=== PATIENT | female | born 2000 | race Hispanic/Latino ===

== ENCOUNTER 2024-10-08 10:35 | Emergency (ER) | payer OTHER ==
--- OUTSIDE RECORDS SUMMARY | 2024-10-08 10:49 | XMS REPORT | Continuity of Care Document ---
Author Name Unknown Address [address] [facility] Carlos. [address] th[address] Address 1200 [facility]. 1 [address] [place] [address] Care Team Providers Care Deck Supervisor Name Role Phone Krzysztof Victor Primary Care Physicia n MORGAN SNOW Attending Clinician Unavailable Morgan Snow MD Attending Clinician [phone] Pam Kulkarni Attending Clinician [phone] Elizabeth Booth MD Attending Clinician [phone] RAHUL THOMPSON Attending Clinician Unavailable Res-Colpo/Leep, [facility] Attending Clinician Un available Rahul Thompson DO Attending Clinician [phone] MARTHA FINNEY Attending Clinician Unavailable Martha Lau Attending Clinician [phone] Rebeca Levin CNM Attending Clinician [phone] REBECA LEVIN Attending Clinician UnavailRAHUL Mccarthy Attending Clinician Unavailable KRZYSZTOF AVITIA Attending Clinician Unavail able Zachary, [facility] Nurse Attending Clinician Unava ilKrzysztof Beasley Attending Clinician + Doctor Unassigned, [place] Attending Clinician U DAVID Boland Attending Clinician Unav ailable DAVID HILL Attending Clinician Unav costa Hill MD, David Byers Attending Clinician + Clara Whelan MD Attending Clinician [phone] Thony REBOLLEDO, Shannon Queen Attending Clinicia n SANJU, JALYN LAURA Attending Clinician Unavailable SANJU, JALYN CAM Attending Clinician Unavailable Ty DIAL, Marlee Attending Clinician [phone] Sanju REBOLLEDO, Jalyn Laura Attending Clinician [phone] Rebeca Levin CNM Attending Clinician [phone] Akinsidharmesh WHCNP, Krzysztof Lanza Attending Clinician + UNKNOWN, ATTENDING Attending Clinician Unavailab Omar Brewerwinter Attending Clinician Unavaila ble Unknown, Attending Attending Clinician Unavailab TANISHA Romo Attending Clinician Unavailable TANISHA SOARES Attending Clinician Unavailable TANISHA SOARES Attending Clinician Unavailable Lab, [facility] Attending Clinician Unavailable Pam Kulkarni Attending Clinician [phone] LUIS A BONILLA Attending Clinician Unavailable Res-Colpo/Leep, [facility] Attending Clinician Un available Luis A Bonilla MD Attending Clinician [phone] Kiah Whelan MD Attending Clinician [phone] ZOEY MALDONADO Attending Clinician Unavailable Gilma Scott LVN Attending Clinician [phone] Doctor Unassigned, [place] Attending Clinician U navailable BHAKTI GRISSOM Attending Clinician Unavailable Quique Staton PA-C Attending Clinician [phone] Bhakti Grissom DO Attending Clinician +[phone] SARAH CUADRA Attending Clinician Unavailab Sarah Osullivan Attending Clinician + [phone] VICK VALADEZ Attending Clinician Unavailable VICK VALADEZ Attending Clinician Unavailable [facility]ending [facility]ician Marlene vailable ROBERT ALEGRE Attending Clinician UnavailROBERT Early Attending Clinician UnavailRAHUL Valencia Attending Clinician Unavailable Rahul Downs PA-C Attending Clinician [phone] Teresa DATA ENTRY ANALYST, Christopher Attending Clinician [phone] PRIMITIVO MATOS Attending Clinician Unavailable Green DATA ENTRY ANALYST, Primitivo Attending Clinician [phone] Provider, [facility] Attending Clinician Unavailable CHRISTOPHER MOORE Attending Clinician Unavailalok Isaacs DATA ENTRY ANALYST, Lenin Attending Clinician [phone] EBLENIN OTOOLE Attending Clinician Unavailable SIRI MURILLO Attending Clinician Unavailable Chidi REBOLLEDO, Siri Attending Clinician [phone] Erik Staton DO Attending Clinician [phone] ANGUS SAMPSON Attending Clinician Unavailab slick Sampson DATA ENTRY ANALYST, Angus Ybarra Attending Clinician [phone] Jorge Michael MD Attending Clinician + [phone] [facility] Attending Clinician Unava ilable 3, [facility] Attending Clinician Unavaila judi Levine RN, Tiny Berry Attending Clinician Unavail able Mandy Martinez MD, Barbara Attending Clinician + Ru MCCLAIN, [place] Attending Clinician Unavailalok Bojorquez RN, Michelle Attending Clinician Marlene BASHIR Rodrigez Attending Clinician Unavailable MORGAN SNOW Admitting Clinician Unavailable TANISHA SOARES Admitting Clinician Unavailable BHAKTI GRISSOM Admitting Clinician Unavailable DAVID HILL Admitting Clinician Unav ailable Morgan Snow MD Admitting Clinician [phone] DAVID HILL Admitting Clinician Unav ailable David Hill MD Admitting Clinician + JALYN BILLS Admitting Clinician Unavailable Sanju REBOLLEDO, Jalyn Laura Admitting Clinician [phone] TANISHA SOARES Admitting Clinician Unavailable Bhakti Grissom DO Admitting Clinician [phone] SARAH CUADRA Admitting Clinician Unavailab Jorge Sauer MD Admitting Clinician [phone] BASHIR URIBE Admitting Clinician Unavailable Payers Payer Name Policy Type Policy Number Effective Date Expirati on Date Source [place] [employer] [id number] 2023 00:00:00 [employer] [id number] 2023 00:00:00 Problems Condition Name Condition Details Condition Category Status Onset Date Resolution Date Last Treatment Date Treating Clinician Comments Source Gestationa l hypertensi on without significan t proteinuri a, Gestationa l hypertensi on without significan t proteinuri a, Disease Active 2023-10 00:00: 00 [facility] 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 Needs LEEP postpartu m [facility] History of HSV History of HSV Disease Active 00:00: 00 Overview: Formattin g of this note might be different from the original. Last outbreak 2015 [facility] Morbid obesity with body mass index of 40.0-49.9 Morbid obesity with body mass index of 40.0-49.9 Disease Active 12-18 00:00: 00 [facility] Atypical squamous cells of undetermin ed significan ce (ASCUS) on Papanicola ou smear of cervix Atypical squamous cells of undetermin ed significan ce (ASCUS) on Papanicola ou smear of cervix Disease Active 01-26 00:00: 00 Overview: Formattin g of this note might be different from the original. Will need repeat pap in 1 year 01/2024 [facility] History of abnormal cervical Pap smear History of abnormal cervical Pap smear Disease Active 01-26 00:00: 00 Overview: Formattin g of this note might be different from the original. ASCUS02/2 06/2024 HGSIL03/2 03/2024 colpo CIN3, LEEP postpartu m [facility] 37 weeks gestation of 37 weeks gestation of Disease Resolve d 2023-10 0-08 00:00: 00 2024-08-22 00:00:00 2024-08-22 10:40:14 [facility] Chlamydia infection affecting in third trimester Chlamydia infection affecting in third trimester Disease Resolve d 2023-10 0-01 00:00: 00 2024-08-22 00:00:00 2024-08-22 10:43:37 [facility] Flu vaccine refused Flu vaccine refused Disease Resolve d 9-19 00:00: 00 2024-08-22 00:00:00 2024-08-22 10:41:35 [facility] Gestationa l hypertensi on, third trimester Gestationa l hypertensi on, third trimester Disease Resolve d 9-11 00:00: 00 2024-08-22 00:00:00 2024-08-22 10:43:27 [facility] Transamini tis Transamini tis Disease Resolve d 9-11 00:00: 00 2024-08-22 00:00:00 2024-08-22 10:43:25 [facility] History of pre-eclamp brian in prior , currently History of pre-eclamp brian in prior , currently Disease Resolve d 00:00: 00 2024-08-22 00:00:00 2024-08-22 10:42:46 Overview: Formattin g of this note might be different from the original. Total protein: 150 [facility] History of miscarriag e History of miscarriag e Disease Resolve d 2- 00:00: 00 2024-08-22 00:00:00 2024-08-22 10:40:28 [facility] (spontaneo us vaginal delivery) (spontaneo us vaginal delivery) Disease Resolve d 2019-10 0- 00:00: 00 2024-08-22 00:00:00 2024-08-22 10:41:43 [facility] Single live Single live Disease Resolve d 2019-10 0-30 00:00: 00 2024-08-22 00:00:00 2024-08-22 10:40:18 [facility] Maternal varicella, non-immune Maternal varicella, non-immune Disease Resolve d 2019- 3-19 00:00: 00 2024-08-22 00:00:00 2024-08-22 10:40:16 Overview: Formattin g of this note might be different from the original. Address in Postpartu m [facility] Abdominal cramping affecting Abdominal cramping affecting Disease Resolve d 9-02 00:00: 00 2024-07-13 00:00:00 2024-07-13 15:47:44 [facility] Back pain affecting Back pain affecting Disease Resolve d 7-31 00:00: 00 2024-07-13 00:00:00 2024-07-13 15:47:51 [facility] 20 weeks gestation of 20 weeks gestation of Disease Resolve d 6-12 00:00: 00 2024-05-11 00:00:00 2024-05-11 09:45:12 [facility] Status post laparoscop ic cholecyste ctomy Status post laparoscop ic cholecyste ctomy Disease Resolve d 2-29 00:00: 00 2024-01-20 00:00:00 2024-01-20 12:31:09 Overview: Formattin g of this note might be different from the original. O2/27/202 4 [facility] RUQ pain RUQ pain Disease Resolve d 0 2-24 00:00: 00 2023-12-23 00:00:00 2023-12-23 15:16:20 [facility] Menorrhagi a with regular cycle Menorrhagi a with regular cycle Disease Resolve d 2022- 2-02 00:00: 00 2023-12-23 00:00:00 2023-12-23 15:16:29 [facility] care and examinatio n of lactating mother care and examinatio n of lactating mother Disease Active 2021- 3-31 00:00: 00 2023-12-23 00:00:00 2023-12-23 15:16:22 [facility] Screen for STD (sexually transmitte d disease) Screen for STD (sexually transmitte d disease) Disease Resolve d 2019-10 2-10 00:00: 00 2023-12-23 00:00:00 2023-12-23 15:16:23 [facility] Obesity (BMI 30-39.9) Obesity (BMI 30-39.9) Disease Resolve d 9-27 00:00: 00 2023-12-23 00:00:00 2023-12-23 15:16:27 [facility] Chlamydia trachomati s infection of lower genitourin maxi sites Chlamydia trachomati s infection of lower genitourin maxi sites Disease Active 4-01 00:00: 00 2022-11-26 00:00:00 2022-11-26 19:46:47 [facility] Other general counseling and advice for contracept rigoberto management Other general counseling and advice for contracept rigoberto management Disease Resolve d 2-03 00:00: 00 2022-11-26 00:00:00 2022-11-26 19:46:37 [facility] Nexplanon removal Nexplanon removal Disease Resolve d 1-20 00:00: 00 2022-11-26 00:00:00 2022-11-26 19:46:28 [facility] Flu vaccine need Flu vaccine need Disease Resolve d 9-17 00:00: 00 2022-11-26 00:00:00 2022-11-26 19:46:51 [facility] Constipati on, unspecifie d constipati on type Constipati on, unspecifie d constipati on type Disease Resolve d 4-16 00:00: 00 2022-11-26 00:00:00 2022-11-26 19:46:48 [facility] BMI 37.0-37.9, adult BMI 37.0-37.9, adult Disease Resolve d 1-09 00:00: 00 2022-11-26 00:00:00 2022-11-26 19:46:42 [facility] Elevated BP without diagnosis of hypertensi on Elevated BP without diagnosis of hypertensi on Disease Resolve d 2019-0 1-09 00:00: 00 2022-11-26 00:00:00 2022-11-26 19:46:50 [facility] Herpes infection in Herpes infection in Disease Resolve d 2015-0 8-31 00:00: 00 2022-11-26 00:00:00 2022-11-26 19:46:54 [facility] care and examinatio n immediatel y after delivery care and examinatio n immediatel y after delivery Disease Resolve d 2019-10 1-19 00:00: 00 2020-11-27 00:00:00 2020-11-27 15:28:38 [facility] hypertensi on hypertensi on Disease Resolve d 2019-10 1-06 00:00: 00 2020-11-27 00:00:00 2020-11-27 15:28:40 [facility] Mild preeclamps ia Mild preeclamps ia Disease Resolve d 2019- 0-30 00:00: 00 2020-11-27 00:00:00 2020-11-27 15:28:26 [facility] Laceration , obstetrica l, first degree Laceration , obstetrica l, first degree Disease Resolve d 2019- 0-30 00:00: 00 2020-11-27 00:00:00 2020-11-27 15:28:24 [facility] Anemia, Anemia, Disease Active 2019-1 0-30 00:00: 00 2020-11-27 00:00:00 2020-11-27 15:28:16 [facility] 36 weeks gestation of 36 weeks gestation of Disease Resolve d 2019-1 0-26 00:00: 00 2020-11-27 00:00:00 2020-11-27 15:28:13 [facility] 32 weeks gestation of 32 weeks gestation of Disease Resolve d 2019-0 9-27 00:00: 00 2020-11-27 00:00:00 2020-11-27 15:28:13 [facility] Supervisio n of high risk in third trimester Supervisio n of high risk in third trimester Disease Resolve d 16 00:00: 00 2020-11-27 00:00:00 2020-11-27 15:28:48 [facility] Primigravi da in third trimester Primigravi da in third trimester Disease Resolve d 02-07 00:00: 00 2020-11-27 00:00:00 2020-11-27 15:28:43 [facility] Abnormal glucose tolerance test (GTT) during , antepartum Abnormal glucose tolerance test (GTT) during , antepartum Disease Resolve d 02-07 00:00: 00 2020-11-27 00:00:00 2020-11-27 15:28:15 [facility] Class 2 obesity due to excess calories with body mass index (BMI) of 37.0 to 37.9 in adult, unspecifie d whether serious comorbidit y present Class 2 obesity due to excess calories with body mass index (BMI) of 37.0 to 37.9 in adult, unspecifie d whether serious comorbidit y present Disease Resolve d 02-07 00:00: 00 2020-11-27 00:00:00 2020-11-27 15:28:30 [facility] 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) Disease Resolve d 9-22 00:00: 00 2020-11-27 00:00:00 2020-11-27 15:28:35 [facility] Nexplanon in place Nexplanon in place Disease Resolve d 9-27 00:00: 00 2020-01-10 00:00:00 2020-01-10 10:15:55 [facility] BV (bacterial vaginosis) BV (bacterial vaginosis) Disease Resolve d 8-31 00:00: 00 2016-09-09 00:00:00 2016-09-09 11:25:20 [facility] Allergies, Adverse Reactions, Alerts Allergy Name Allergy Type Status Severity Reaction(s) Onset Date Inactive Date Treating Clinician Comments Source NO KNOWN ALLERGIE S Drug Class Active [facility] Social History Social Habit Start Date Stop Date Quantity Comments Source ASSERTION 2023-11-30 00:00:00 [facility] Gender identity [facility] Alcoholic beverage intake 2024-09-19 00:00:00 2024-09-19 00:00:00 0 /d [facility] Alcohol intake 2024-02-17 00:00:00 2024-02-17 00:00:00 0 /d [facility] History of Social function 2023-12-23 00:00:00 2023-12-23 00:00:00 [facility] Exposure to SARS-CoV-2 (event) 2023-01-09 00:00:00 2023-01-19 13:52:00 Not sure [facility] Tobacco use and exposure 2023-01-19 00:00:00 2023-01-19 00:00:00 Smokeless tobacco non-user [facility] Tobacco Comment 2023-01-19 00:00:00 2023-01-19 00:00:00 Denies smoking exposure [facility] Sex assigned at 2001 00:00:00 2000 00:00:00 [facility] Smoking Status Start Date Stop Date Source Never smoked tobacco [facility] Medications Ordered Medication Name Filled Medication Name Start Date Stop Date Current Medication? Ordering Clinician Indication Dosage Frequency Signature (SIG) Comments Components Source HYDROmorpho ne (DILAUDID) injection 0.2 mg 2023-10 20:27: 23 10-05 23:37 :01 No .2mg 0.2 mg, Slow IV Push, Q5MIN PRN, 10 doses, Starting on Cece 12 at 1427, Until Cece 12 at 1737, Routine, Pain (scale 7-10), PACU, Is this medication approved by a Faculty level provider? 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 Restricted medication : KWABENA BETH [facility] FENTanyl (PF) (SUBLIMAZE) injection 25 mcg 2023-10 20:27: 23 10-05 23:37 :01 No 25ug 25 mcg, Slow IV Push, Q5MIN PRN, 4 doses, Starting on Cece 10/05/24 at 1427, Until Cece 10/05/24 at 1737, Routine, Pain Scale 4-6, PACU [facility] ondansetron (ZOFRAN (PF)) injection 4 mg 2023-10 20:27: 23 10-05 23:37 :01 No 4mg 4 mg, Slow IV Push, PRN, 1 dose, Starting on Cece 10/05/24 at 1427, Until Cece 10/05/24 at 1737, Administer over 2-5 Minutes, 2 mL, [facility] ferric subsulfate (MONSEL'S) paste 2023-10 20:04: 00 10-05 21:02 :40 No PRN, Starting on Cece 10/05/24 at 1404, Until Cece 10/05/24 at 1502, Routine, [facility] lidocaine-e pinephrine (XYLOCAINE WITH EPINEPHRINE ) 1 %-1:100,000 injection 2023-10 19:59: 00 10-05 21:02 :40 No PRN, Starting on Cece 10/05/24 at 1359, Until Cece 24 at 1502, Routine, Intra-op [facility] iodine strong (LUGOL'S) (LUGOL'S SOLUTION) 5 % solution 2023-10 19:22: 00 10-05 21:02 :40 No PRN, Starting on Cece 10/05/24 at 1322, Until Cece 1224 at 1502, Routine, Intra-op [facility] acetaminoph en 500 mg tablet 2023-10 00:00: 00 11-05 05:59 :00 Yes [id number] 1000mg Take 2 tablets by mouth every 8 (eight) hours for 30 days. [facility] ibuprofen 800 mg tablet 2023-10 2-12 00:00: 00 11-05 05:59 :00 Yes [id number] 800mg Take 1 tablet by mouth every 8 (eight) hours for 30 days. [facility] oxyCODONE 5 mg immediate release tablet 2023-10-12 00:00: 00 10-13 05:59 :00 Yes [id number] 5mg Take 1 tablet by mouth every 6 (six) hours as needed for Pain (scale 7-10) for up to 7 days. Indication s: acute pain [facility] docusate 100 mg capsule 2023-10 0-10 00:00: 00 10-05 00:00 :00 No [id number] 200mg Take 2 capsules by mouth once daily as needed for Constipati on. [facility] ibuprofen 800 mg tablet 2023-10 0-10 00:00: 00 10-05 00:00 :00 No [id number] 800mg Take 1 tablet by mouth every 8 (eight) hours as needed (pain). Take with food or milk. [facility] hcz529-[id number] fum-folic 27 mg iron- 1 mg folic tablet 2023-10 0-10 00:00: 00 10-05 00:00 :00 No [id number] 1{tbl} Take 1 tablet by mouth in the morning. [facility] valACYclovi r 500 mg tablet 2023-10 0-10 00:00: 00 10-05 00:00 :00 No [id number] 500mg Take 1 tablet by mouth in the morning and 1 tablet in the evening. [facility] ferrous sulfate 325 mg (65 mg iron) tablet 2023-10 0-10 00:00: 00 10-05 00:00 :00 No [id number] 325mg Take 1 tablet by mouth in the morning. [facility] varicella virus vaccine live (VARIVAX (PF)) injection 0.5 mL 2023-10 009 13:06: 31 Yes .5mL 0.5 mL, Subcutaneo us, ONCE-PRIOR TO DISCHARGE, 1 dose, Starting on Wed08/02/24 at 0806, Until Discontinu ed, Routine, Give vaccine prior to discharge [facility] ibuprofen (IBU) tablet 600 mg 2023-10 11:00: 00 Yes 600mg 600 mg, Oral, Q6H, First dose on Wed08/02/24 at 0600, Until Discontinu ed, Routine [facility] rho(D) immune globulin (RHOPHYLAC) injection 300 mcg 2023-10 10:46: 03 Yes 300ug [facility] acetaminoph en (TYLENOL) tablet 650 mg 2023-10 10:45: 59 Yes 650mg 650 mg, Oral, Q6HPRN, Starting on Wed08/02/24 at 0545, Until Discontinu ed, Routine, Pain (scale 1-3) [facility] diphenhydrA MINE (BENADRYL) tablet 25 mg 2023-10 10:45: 59 Yes 25mg [facility] ondansetron (ZOFRAN (PF)) injection 4 mg 2023-10 10:45: 59 Yes 4mg [facility] simethicone (GAS RELIEF (SIMETHICON E)) chewable tablet 160 mg 2023-10 10:45: 59 Yes 160mg [facility] docusate (COLACE) capsule 200 mg 2023-10 10:45: 59 Yes 200mg [facility] magnesium hydroxide (MILK OF MAGNESIA) 400 mg/5 mL suspension 30 mL 2023-10 10:45: 59 Yes 30mL [facility] benzocaine- menthol (DERMOPLAST ) 20-0.5 % topical spray 2023-10 10:45: 58 Yes [facility] fan999-hnbj fum-folic 27 mg iron- 1 mg folic tablet 2023-10 00:00: 00 08-03 00:00 :00 No [id number] 1{tbl} Take 1 tablet by mouth in the morning. [facility] docusate 100 mg capsule 2023-10 00:00: 00 08-03 00:00 :00 No [id number] 200mg Take 2 capsules by mouth once daily as needed for Constipati on. [facility] ferrous sulfate 325 mg (65 mg iron) tablet 2023-10 00:00: 00 08-03 00:00 :00 No [id number] 325mg Take 1 tablet by mouth in the morning. [facility] ibuprofen 800 mg tablet 2023-10 00:00: 00 08-03 00:00 :00 No [id number] 800mg Take 1 tablet by mouth every 8 (eight) hours as needed (pain). Take with food or milk. [facility] ibuprofen (IBU) tablet 600 mg 2023-10 23:57: 45 08-02 10:46 :02 No 600mg 600 mg, Oral, Q6HPRN, Starting on Wed08/01/24 at 1857, Until Wed08/02/24 at 0546, Routine, Pain (scale 1-3) [facility] lactated ringers IV infusion 500 mL 2023-10 18:15: 00 08-01 17:52 :56 No 500mL at 999 mL/hr, 500 mL, IV Infusion, ONCE, 1 dose, On Wed08/01/24 at 1315, Routine [facility] ropivacaine 0.2 % (NAROPIN (PF)) epidural infusion 2023-10 18:06: 00 08-02 03:30 :38 No Epidural, CONTINUOUS PRN, Starting on Wed08/01/24 at 1306, Until Wed08/01/24 at 2230, Routine, Intra-op [facility] lidocaine-e pinephrine (XYLOCAINE W/EPINEPHRI NE) 1.5 %-1:200,000 injection 2023-10 18:05: 00 08-02 03:30 :38 No Epidural, ONCE INTRA PROCEDURE, Starting on Wed08/01/24 at 1305, Until Wed08/01/24 at 2230, Routine, Intra-op [facility] sodium citrate-cit anabel acid (BICITRA) 500-334 mg/5 mL solution 30 mL 2023-10 17:18: 01 08-01 17:22 :00 No 30mL 30 mL, Oral, PRE-PROCED URE ONCE, 1 dose, Starting on Wed08/01/24 at 1218, Until Wed08/01/24 at 1222, Routine, Surgery/Pr ocedure [facility] caffeine tablet 200 mg 2023-10 16:45: 00 08-01 18:26 :00 No 200mg 200 mg, Oral, ONCE, 1 dose, On Wed08/01/24 at 1145, Routine [facility] acetaminoph en (TYLENOL) tablet 1,000 mg 2023-10 16:45: 00 08-01 16:41 :00 No 1000mg 1,000 mg, Oral, ONCE, 1 dose, On Wed08/01/24 at 1145, Routine [facility] oxytocin (PITOCIN) 30 units in NS 500 mL IV infusion 2023-10 15:20: 42 08-02 10:46 :02 No 2mU/min at 2-40 mL/hr, IV Infusion, TITRATE, Starting on Wed08/01/24 at 1020, Until Wed08/02/24 at 0546, ALTHEA [facility] D5W-LR IV infusion 1,000 mL 2023-10 14:16: 38 08-02 10:46 :02 No 1000mL at 1-125 mL/hr, IV Infusion, TITRATE, Starting on Wed08/01/24 at 0916, Until Wed08/02/24 at 0546, Routine [facility] azithromyci n (ZITHROMAX) 500 mg tablet 07-21 00:00: 00 07-22 04:59 :00 Yes [id number] 01 1000mg Take 2 tablets by mouth once now for 1 dose. [facility] valACYclovi r 500 mg tablet 07-20 00:00: 00 Yes [id number] 500mg Take 1 tablet by mouth in the morning and 1 tablet in the evening. [facility] acetaminoph en (TYLENOL) tablet 1,000 mg 06-26 22:15: 00 06-26 21:41 :00 No 1000mg 1,000 mg, Oral, ONCE, 1 dose, On Wed06/26/24 at 1715, Routine [facility] metroNIDAZO LE 500 mg tablet - 00:00: 00 05-23 04:59 :00 No [id number] 500mg Take 1 tablet by mouth in the morning and 1 tablet in the evening. Do all this for 7 days. [facility] PNV 67-iron ps-folate no.1-dha (VITAFOL ULTRA) 29 mg iron- 1 mg-200 mg Cap 02-16 00:00: 00 08-02 00:00 :00 No [id number] 1{capsu le} Take 1 capsule by mouth in the morning. [facility] aspirin 81 mg EC tablet 02-16 00:00: 00 08-02 00:00 :00 No [id number] 9100 81mg Take 1 tablet by mouth in the morning. [facility] Nitrofurant oin&Nit. Macrocryst (MACROBID) 100 mg capsule - 00:00: 00 01-19 00:00 :00 No [id number] 100mg Take 1 capsule by mouth in the morning and 1 capsule in the evening. [facility] PNV no.40-iron fum-fa cmb no.1 27-1 mg 2- 14:58: 44 Yes 1{tbl} Take 1 tablet by mouth in the morning. [facility] PNV no.40-iron fum-fa cmb no.1 27-1 mg - 12:03: 08 02-16 00:00 :00 No 1{tbl} Take 1 tablet by mouth in the morning. [facility] acetaminoph en 325 mg tablet 12-22 00:00: 00 08-02 00:00 :00 No 650mg Take 2 tablets by mouth every 6 (six) hours as needed for Pain (scale 4-6). [facility] traMADoL 50 mg tablet 12-22 00:00: 00 12-25 05:59 :00 No [id number] 50mg Take 1 tablet by mouth every 6 (six) hours as needed for Pain (scale 7-10) for up to 3 days. Indication s: acute pain [facility] FENTanyl PF (SUBLIMAZE (PF)) injection 25 mcg 12-21 19:00: 54 12-21 19:58 :07 No 25ug 25 mcg, Slow IV Push, Q5MIN PRN, 4 doses, Starting on Wed12/21/23 at 1300, Until Wed12/21/23 at 1358, Routine, Pain (scale 4-6), PACU [facility] acetaminoph en (TYLENOL) tablet 650 mg 12-21 18:45: 00 Yes 650mg 650 mg, Oral, Q6H, First dose on Wed12/21/23 at 1245, Until Discontinu ed, Routine [facility] ondansetron (ZOFRAN (PF)) injection 4 mg 12-21 18:35: 55 Yes 4mg 4 mg, Slow IV Push, Q6HPRN, Nausea and Vomiting (N/V), Starting on Wed12/21/23 at 1235
Do ses of ondansetro n 16 mg and above need to be administer ed via IV piggyback. For Dose >=24mg ECG monitoring is advisable.
[facility] traMADoL (ULTRAM) tablet 50 mg 12-21 18:35: 15 Yes 50mg 50 mg, Oral, Q6HPRN, Starting on Wed12/21/23 at 1235, Until Discontinu ed, Routine, Pain (scale 4-6), Pain (scale 7-10) [facility] bupivacaine (preserv free) (SENSORCAIN E MPF) 0.25 % (2.5 mg/mL) 30 mL, lidocaine-e pinephrine (XYLOCAINE W/EPINEPHRI NE) 1 %-1:200,000 30 mL 12-21 17:09: 00 12-21 19:11 :17 No PRN, Starting on Wed12/21/23 at 1109, Intra-op [facility] sodium chloride 0.9 % irrigation solution 12-21 17:06: 00 12-21 19:11 :17 No PRN, Starting on Wed12/21/23 at 1106, Until Wed12/21/23 at 1311, Intra-op [facility] lactated ringers IV infusion 1,000 mL 12-21 06:00: 00 12-21 18:34 :43 No 1000mL at 125 mL/hr, 1,000 mL, IV Infusion, CONTINUOUS , Starting on Wed12/21/23 at 0000, Until Wed12/21/23 at 1234, Routine [facility] ampicillin- sulbactam (UNASYN) 3 g in NaCl 0.9% (NS) 100 mL MINI-BAG 12-19 06:00: 00 12-21 18:34 :43 No 3g 3 g, IV Piggyback, Q6H ABX, 20 doses, First dose on 12/19/23 at 0000, Last dose on Cece 12/23/23 at 1800, Administer over 30 Minutes, 100 mL
Reas on for Anti-Infec tive: Empiric Therapy for Suspected Infection< br>Empiric Therapy Site: Abdominal< br>Duratio n of therapy: 5 days [facility] morpHINE (2 mg/mL) injection 2 mg 12-19 02:45: 00 12-19 02:10 :00 No 2mg 2 mg, Slow IV Push, ONCE, 1 dose, On 12/18/23 at 2045, Routine [facility] lactated ringers IV infusion 1,000 mL 12-18 22:00: 00 12-20 19:48 :18 No 1000mL at 125 mL/hr, 1,000 mL, IV Infusion, CONTINUOUS , Starting on Wed12/18/23 at 1600, Until 12/20/23 at 1348, Routine [facility] ampicillin- sulbactam (UNASYN) 3 g in NaCl 0.9% (NS) 100 mL MINI-BAG 12-18 21:30: 00 12-18 22:35 :00 No 3g 3 g, IV Piggyback, ONCE, 1 dose, On 12/18/23 at 1530, Administer over 30 Minutes, 100 mL
Reas on for Anti-Infec tive: Surgical Prophylaxi s
Surgi ana Prophylaxi s: Abdominal< br>Duratio n of therapy: within 24 hours of surgery [facility] acetaminoph en (OFIRMEV) IV piggyback 1,000 mg 12-18 21:15: 00 12-18 22:00 :00 No 1000mg 1,000 mg, IV Piggyback, at 400 mL/hr Administer over 15 Minutes, ONCE, 1 dose, On 12/18/23 at 1530, ALTHEA
Is the patient strict NPO and unable to tolerate oral medication s? Yes [facility] traMADoL (ULTRAM) tablet 50 mg 12-09 04:15: 00 12-09 03:24 :00 No 50mg 50 mg, Oral, ONCE, 1 dose, On Wed12/08/23 at 2215, Routine [facility] ondansetron (ZOFRAN (PF)) injection 4 mg 12-09 02:30: 00 12-09 03:24 :00 No 4mg 4 mg, Slow IV Push, ONCE, 1 dose, On Wed12/08/23 at 2030, ALTHEA [facility] iopamidol (ISOVUE 370-500 mL) injection 85 mL 12-09 01:45: 00 12-09 01:45 :00 No [id number] 85mL 85 mL, Intravenou s, ONCE, 1 dose, On Wed12/08/23 at 1945, Routine [facility] famotidine (PEPCID (PF)) injection 20 mg 12-09 00:30: 00 12-09 00:26 :00 No 20mg 20 mg, Slow IV Push, ONCE, 1 dose, On Wed12/08/23 at 1830, ALTHEA [facility] traMADoL 50 mg tablet 2-14 00:00: 00 12-14 05:59 :00 No [id number] 50mg Take 1 tablet by mouth every 6 (six) hours as needed for Pain (scale 7-10) for up to 5 days. Indication s: acute pain [facility] ondansetron 4 mg disintegrat ing tablet 214 00:00: 00 12-14 05:59 :00 No [id number] 4mg Take 1 tablet by mouth every 8 (eight) hours as needed for Nausea and Vomiting (N/V) for up to 5 days. [facility] cefTRIAXone (ROCEPHIN) 350 mg/mL in Lidocaine 1 % injection 500 mg - 00:00: 00 11-03 23:14 :00 No 500mg 500 mg, Intramuscu lar, ONCE NOW, 1 dose, On Wed11/03/23 at 1800, ALTHEA
Re ason for Anti-Infec tive: Empiric Therapy for Suspected Infection< br>Empiric Therapy Site: Pelvic
Duration of therapy: Once (ED) [facility] azithromyci n (ZITHROMAX) tablet 1,000 mg 11-03 23:15: 00 11-03 23:13 :00 No 1000mg 1,000 mg, Oral, ONCE, 1 dose, On Wed11/03/23 at 1715, ALTHEA
Re ason for Anti-Infec tive: Empiric Therapy for Suspected Infection< br>Empiric Therapy Site: Pelvic
Duration of therapy: Once (ED) [facility] fluconazole (DIFLUCAN) 150 mg tablet 05-14 00:00: 00 05-15 04:59 :00 No [id number] 150mg Take 1 tablet by mouth once now for 1 dose. [facility] doxycycline hyclate 100 mg capsule 04-29 00:00: 00 05-07 04:59 :00 No [id number] 100mg Take 1 capsule by mouth every 12 (twelve) hours for 7 days. [facility] metroNIDAZO LE 500 mg tablet 04-29 00:00: 05-07 04:59 :00 No [id number] 500mg Take 1 tablet by mouth in the morning and 1 tablet in the evening. Do all this for 7 days. [facility] medroxyPROG ESTERone (DEPO-PROVE RA) syringe 150 mg 4- 05:00: 00 12-22 17:42 :34 No [id number] 150mg [facility] metroNIDAZO LE 500 mg tablet 30 00:00: 00 04-29 00:00 :00 No [id number] 500mg Take 1 tablet by mouth in the morning and 1 tablet in the evening. [facility] doxycycline hyclate 100 mg tablet 01-21 00:00: 00 01-29 04:59 :00 No [id number] 100mg Take 1 tablet by mouth in the morning and 1 tablet in the evening. Do all this for 7 days. [facility] medroxyPROG ESTERone (DEPO-PROVE RA) syringe 150 mg 2- 17:00: 00 11-26 16:29 :00 No [id number] 150mg [facility] bromphenira mine-pseudo ephedrine-D M 2-30-10 mg/5 mL syrup 05-13 00:00: 00 05-21 04:59 :00 No [id number] 10mL Take 10 mL by mouth 4 (four) times daily as needed for Congestion /Allergies for up to 7 days. [facility] polymyxin B sulf-trimet hoprim 10,000 unit- 1 mg/mL ophthalmic drops 04-28 00:00: 00 05-06 04:59 :00 No [id number] 1[drp] Place 1 Drop in both eyes every 6 (six) hours for 7 days. [facility] fluticasone propionate 50 mcg/actuati on nasal spray 6 00:00: 00 04-28 00:00 :00 No [id number] 2{spray } Use 2 Sprays in each nostril daily. [facility] fexofenadin e-pseudoeph edrine (JIMENA-D) 60-120 mg per tablet 04-20 00:00: 00 04-28 00:00 :00 No [id number] 1{tbl} Take 1 tablet by mouth 2 (two) times daily. [facility] amoxicillin 875 mg tablet 04-20 00:00: 00 05-01 04:59 :00 No [id number] 875mg Take 1 tablet by mouth 2 (two) times daily for 10 days. [facility] No known medications 04-05 11:41: 36 No [facility] No known medications 02-19 14:50: 17 No [facility] vit 33-iron-fol ic-dha (SELECT-OB + DHA) 29 mg iron-1 mg -250 mg combo pack 01-24 00:00: 00 07-21 00:00 :00 No [id number] 1{packe t} Take 1 Packet by mouth daily. [facility] Immunizations Ordered Immunization Name Filled Immunization Name Date Status Comments Source Flu Injectable [facility]CK Pres-Free (FLUCELVAX) 2024-09-12 00:00:00 Completed [facility] TDAP 2024-06-01 00:00:00 Completed [facility] TDAP 2024-06-01 00:00:00 Completed [facility] TDAP 2024-06-01 00:00:00 Completed [facility] TDAP 2024-06-01 00:00:00 Completed [facility] TDAP 2024-06-01 00:00:00 Completed [facility] Influenza Virus Vaccine Quad IM, Preserv and ABX Free 6 MO-64 YRS 2023-01-20 00:00:00 Completed [facility] Influenza Virus Vaccine Quad IM, Preserv and ABX Free 6 MO-64 YRS 2023-01-20 00:00:00 Completed [facility] Influenza Virus Vaccine Quad IM, Preserv and ABX Free 6 MO-64 YRS 2023-01-20 00:00:00 Completed [facility] Influenza Virus Vaccine Quad IM, Preserv and ABX Free 6 MO-64 YRS 2023-01-20 00:00:00 Completed [facility] Influenza Virus Vaccine Quad IM, Preserv and ABX Free 6 MO-64 YRS 2023-01-20 00:00:00 Completed [facility] Influenza Virus Vaccine Quad IM, Preserv and ABX Free 6 MO-64 YRS 2023-01-20 00:00:00 Completed [facility] Influenza Virus Vaccine Quad IM, Preserv and ABX Free 6 MO-64 YRS 2023-01-20 00:00:00 Completed [facility] Influenza Virus Vaccine Quad IM, Preserv and ABX Free 6 MO-64 YRS 2023-01-20 00:00:00 Completed [facility] Influenza Virus Vaccine Quad IM, Preserv and ABX Free 6 MO-64 YRS 2023-01-20 00:00:00 Completed [facility] Influenza Virus Vaccine Quad IM, Preserv and ABX Free 6 MO-64 YRS 2023-01-20 00:00:00 Completed [facility] Influenza Virus Vaccine Quad IM, Preserv and ABX Free 6 MO-64 YRS (FLUCELVAX) 2023-01-20 00:00:00 Completed [facility] Influenza Virus Vaccine Quad IM, Preserv and ABX Free 6 MO-64 YRS (FLUCELVAX) 2023-01-20 00:00:00 Completed [facility] Influenza Virus Vaccine Quad IM, Preserv and ABX Free 6 MO-64 YRS (FLUCELVAX) 2023-01-20 00:00:00 Completed [facility] Influenza Virus Vaccine Quad IM, Preserv and ABX Free 6 MO-64 YRS (FLUCELVAX) 2023-01-20 00:00:00 Completed [facility] Influenza Virus Vaccine Quad IM, Preserv and ABX Free 6 MO-64 YRS (FLUCELVAX) 2023-01-20 00:00:00 Completed [facility] Influenza Virus Vaccine Quad .5 mL IM 6+ MO 2020-07-11 00:00:00 Completed [facility] Influenza Virus Vaccine Quad .5 mL IM 6+ MO 2020-07-11 00:00:00 Completed [facility] Influenza Virus Vaccine Quad .5 mL IM 6+ MO 2020-07-11 00:00:00 Completed [facility] Influenza Virus Vaccine Quad .5 mL IM 6+ MO 2020-07-11 00:00:00 Completed [facility] Influenza Virus Vaccine Quad .5 mL IM 6+ MO 2020-07-11 00:00:00 Completed [facility] Influenza Virus Vaccine Quad .5 mL IM 6+ MO 2020-07-11 00:00:00 Completed [facility] Influenza Virus Vaccine Quad .5 mL IM 6+ MO 2020-07-11 00:00:00 Completed [facility] Influenza Virus Vaccine Quad .5 mL IM 6+ MO 2020-07-11 00:00:00 Completed [facility] Influenza Virus Vaccine Quad .5 mL IM 6+ MO 2020-07-11 00:00:00 Completed [facility] Influenza Virus Vaccine Quad .5 mL IM 6+ MO 2020-07-11 00:00:00 Completed [facility] Influenza Virus Vaccine Quad .5 mL IM 6+ MO 2020-07-11 00:00:00 Completed [facility] Influenza Virus Vaccine Quad .5 mL IM 6+ MO 2020-07-11 00:00:00 Completed [facility] Influenza Virus Vaccine Quad .5 mL IM 6+ MO 2020-07-11 00:00:00 Completed [facility] Influenza Virus Vaccine Quad .5 mL IM 6+ MO 2020-07-11 00:00:00 Completed [facility] Influenza Virus Vaccine Quad .5 mL IM 6+ MO 2020-07-11 00:00:00 Completed [facility] Influenza Virus Vaccine Quad .5 mL IM 6+ MO 2020-07-11 00:00:00 Completed [facility] Influenza Virus Vaccine Quad .5 mL IM 6+ MO 2020-07-11 00:00:00 Completed [facility] Influenza Virus Vaccine Quad .5 mL IM 6+ MO 2020-07-11 00:00:00 Completed [facility] Influenza Virus Vaccine Quad .5 mL IM 6+ MO 2020-07-11 00:00:00 Completed [facility] Influenza Virus Vaccine Quad .5 mL IM 6+ MO 2020-07-11 00:00:00 Completed [facility] Influenza Virus Vaccine Quad .5 mL IM 6+ MO 2020-07-11 00:00:00 Completed [facility] Influenza Virus Vaccine Quad .5 mL IM 6+ MO (FLUZONE/FLULAVAL/FL UARIX) 2020-07-11 00:00:00 Completed Influenza Virus Vaccine Quad .5 mL IM 6+ MO (FLUZONE/FLULAVAL/FL UARIX) 2020-07-11 00:00:00 Completed Influenza Virus Vaccine Quad .5 mL IM 6+ MO (FLUZONE/FLULAVAL/FL UARIX) 2020-07-11 00:00:00 Completed Influenza Virus Vaccine Quad .5 mL IM 6+ MO (FLUZONE/FLULAVAL/FL UARIX) 2020-07-11 00:00:00 Completed Influenza Virus Vaccine Quad .5 mL IM 6+ MO (FLUZONE/FLULAVAL/FL UARIX) 2020-07-11 00:00:00 Completed TDAP 2020-06-26 00:00:00 Completed [facility] TDAP 2020-06-26 00:00:00 Completed [facility] TDAP 2020-06-26 00:00:00 Completed [facility] TDAP 2020-06-26 00:00:00 Completed [facility] TDAP 2020-06-26 00:00:00 Completed [facility] TDAP 2020-06-26 00:00:00 Completed [facility] TDAP 2020-06-26 00:00:00 Completed [facility] TDAP 2020-06-26 00:00:00 Completed [facility] TDAP 2020-06-26 00:00:00 Completed [facility] TDAP 2020-06-26 00:00:00 Completed [facility] TDAP 2020-06-26 00:00:00 Completed [facility] TDAP 2020-06-26 00:00:00 Completed [facility] TDAP 2020-06-26 00:00:00 Completed [facility] TDAP 2020-06-26 00:00:00 Completed [facility] TDAP 2020-06-26 00:00:00 Completed [facility] TDAP 2020-06-26 00:00:00 Completed [facility] TDAP 2020-06-26 00:00:00 Completed [facility] TDAP 2020-06-26 00:00:00 Completed [facility] TDAP 2020-06-26 00:00:00 Completed [facility] TDAP 2020-06-26 00:00:00 Completed [facility] TDAP 2020-06-26 00:00:00 Completed [facility] TDAP 2020-06-26 00:00:00 Completed [facility] TDAP 2020-06-26 00:00:00 Completed [facility] TDAP 2020-06-26 00:00:00 Completed [facility] TDAP 2020-06-26 00:00:00 Completed [facility] TDAP 2020-06-26 00:00:00 Completed [facility] HPV9 2019-11-09 00:00:00 Completed [facility] HPV9 2019-11-09 00:00:00 Completed [facility] HPV9 2019-11-09 00:00:00 Completed [facility] HPV9 2019-11-09 00:00:00 Completed [facility] HPV9 2019-11-09 00:00:00 Completed [facility] HPV9 2019-11-09 00:00:00 Completed [facility] HPV9 2019-11-09 00:00:00 Completed [facility] HPV9 2019-11-09 00:00:00 Completed [facility] HPV9 2019-11-09 00:00:00 Completed [facility] HPV9 2019-11-09 00:00:00 Completed [facility] HPV9 2019-11-09 00:00:00 Completed [facility] HPV9 2019-11-09 00:00:00 Completed [facility] HPV9 2019-11-09 00:00:00 Completed HPV9 2019-11-09 00:00:00 Completed HPV9 2019-11-09 00:00:00 Completed HPV9 2019-11-09 00:00:00 Completed HPV9 2019-11-09 00:00:00 Completed Influenza Virus Vaccine Quad .5 mL IM 6+ MO 2019-11-02 00:00:00 Completed [facility] Influenza Virus Vaccine Quad .5 mL IM 6+ MO 2019-11-02 00:00:00 Completed [facility] Influenza Virus Vaccine Quad .5 mL IM 6+ MO 2019-11-02 00:00:00 Completed [facility] Influenza Virus Vaccine Quad .5 mL IM 6+ MO 2019-11-02 00:00:00 Completed [facility] Influenza Virus Vaccine Quad .5 mL IM 6+ MO 2019-11-02 00:00:00 Completed [facility] Influenza Virus Vaccine Quad .5 mL IM 6+ MO 2019-11-02 00:00:00 Completed [facility] Influenza Virus Vaccine Quad .5 mL IM 6+ MO 2019-11-02 00:00:00 Completed [facility] Influenza Virus Vaccine Quad .5 mL IM 6+ MO 2019-11-02 00:00:00 Completed [facility] Influenza Virus Vaccine Quad .5 mL IM 6+ MO 2019-11-02 00:00:00 Completed [facility] Influenza Virus Vaccine Quad .5 mL IM 6+ MO 2019-11-02 00:00:00 Completed [facility] Influenza Virus Vaccine Quad .5 mL IM 6+ MO 2019-11-02 00:00:00 Completed [facility] Influenza Virus Vaccine Quad .5 mL IM 6+ MO 2019-11-02 00:00:00 Completed [facility] Influenza Virus Vaccine Quad .5 mL IM 6+ MO 2019-11-02 00:00:00 Completed [facility] Influenza Virus Vaccine Quad .5 mL IM 6+ MO 2019-11-02 00:00:00 Completed [facility] Influenza Virus Vaccine Quad .5 mL IM 6+ MO 2019-11-02 00:00:00 Completed [facility] Influenza Virus Vaccine Quad .5 mL IM 6+ MO 2019-11-02 00:00:00 Completed [facility] Influenza Virus Vaccine Quad .5 mL IM 6+ MO 2019-11-02 00:00:00 Completed [facility] Influenza Virus Vaccine Quad .5 mL IM 6+ MO 2019-11-02 00:00:00 Completed [facility] Influenza Virus Vaccine Quad .5 mL IM 6+ MO 2019-11-02 00:00:00 Completed [facility] Influenza Virus Vaccine Quad .5 mL IM 6+ MO 2019-11-02 00:00:00 Completed [facility] Influenza Virus Vaccine Quad .5 mL IM 6+ MO 2019-11-02 00:00:00 Completed [facility] Influenza Virus Vaccine Quad .5 mL IM 6+ MO (FLUZONE/FLULAVAL/FL UARIX) 2019-11-02 00:00:00 Completed [facility] Influenza Virus Vaccine Quad .5 mL IM 6+ MO (FLUZONE/FLULAVAL/FL UARIX) 2019-11-02 00:00:00 Completed [facility] Influenza Virus Vaccine Quad .5 mL IM 6+ MO (FLUZONE/FLULAVAL/FL UARIX) 2019-11-02 00:00:00 Completed [facility] Influenza Virus Vaccine Quad .5 mL IM 6+ MO (FLUZONE/FLULAVAL/FL UARIX) 2019-11-02 00:00:00 Completed [facility] Influenza Virus Vaccine Quad .5 mL IM 6+ MO (FLUZONE/FLULAVAL/FL UARIX) 2019-11-02 00:00:00 Completed [facility] HPV9 2016-02-12 00:00:00 Completed [facility] HPV9 2016-02-12 00:00:00 Completed [facility] HPV9 2016-02-12 00:00:00 Completed [facility] HPV9 2016-02-12 00:00:00 Completed [facility] HPV9 2016-02-12 00:00:00 Completed [facility] HPV9 2016-02-12 00:00:00 Completed [facility] HPV9 2016-02-12 00:00:00 Completed [facility] HPV9 2016-02-12 00:00:00 Completed [facility] HPV9 2016-02-12 00:00:00 Completed [facility] HPV9 2016-02-12 00:00:00 Completed [facility] HPV9 2016-02-12 00:00:00 Completed [facility] HPV9 2016-02-12 00:00:00 Completed [facility] HPV9 2016-02-12 00:00:00 Completed [facility] HPV9 2016-02-12 00:00:00 Completed [facility] HPV9 2016-02-12 00:00:00 Completed [facility] HPV9 2016-02-12 00:00:00 Completed [facility] HPV9 2016-02-12 00:00:00 Completed [facility] HPV9 2016-02-12 00:00:00 Completed [facility] HPV9 2016-02-12 00:00:00 Completed [facility] HPV9 2016-02-12 00:00:00 Completed [facility] HPV9 2016-02-12 00:00:00 Completed [facility] HPV9 2016-02-12 00:00:00 Completed [facility] HPV9 2016-02-12 00:00:00 Completed [facility] HPV9 2016-02-12 00:00:00 Completed [facility] HPV9 2016-02-12 00:00:00 Completed [facility] HPV9 2016-02-12 00:00:00 Completed [facility] HPV 2014-10-03 00:00:00 Completed [facility] Influenza Virus Vaccine 2014-10-03 00:00:00 Completed [facility] HPV 2014-10-03 00:00:00 Completed [facility] Influenza Virus Vaccine 2014-10-03 00:00:00 Completed [facility] HPV 2014-10-03 00:00:00 Completed [facility] Influenza Virus Vaccine 2014-10-03 00:00:00 Completed [facility] HPV 2014-10-03 00:00:00 Completed [facility] Influenza Virus Vaccine 2014-10-03 00:00:00 Completed [facility] HPV 2014-10-03 00:00:00 Completed [facility] Influenza Virus Vaccine 2014-10-03 00:00:00 Completed [facility] HPV 2014-10-03 00:00:00 Completed [facility] Influenza Virus Vaccine 2014-10-03 00:00:00 Completed [facility] HPV 2014-10-03 00:00:00 Completed [facility] Influenza Virus Vaccine 2014-10-03 00:00:00 Completed [facility] HPV 2014-10-03 00:00:00 Completed [facility] Influenza Virus Vaccine 2014-10-03 00:00:00 Completed [facility] HPV 2014-10-03 00:00:00 Completed [facility] Influenza Virus Vaccine 2014-10-03 00:00:00 Completed [facility] HPV 2014-10-03 00:00:00 Completed [facility] Influenza Virus Vaccine 2014-10-03 00:00:00 Completed [facility] Influenza Virus Vaccine Quad .5 mL IM 6+ MO 2014-10-03 00:00:00 Completed [facility] HPV 2014-10-03 00:00:00 Completed [facility] Influenza Virus Vaccine 2014-10-03 00:00:00 Completed [facility] Influenza Virus Vaccine Quad .5 mL IM 6+ MO 2014-10-03 00:00:00 Completed [facility] HPV 2014-10-03 00:00:00 Completed [facility] Influenza Virus Vaccine 2014-10-03 00:00:00 Completed [facility] Influenza Virus Vaccine Quad .5 mL IM 6+ MO 2014-10-03 00:00:00 Completed [facility] HPV 2014-10-03 00:00:00 Completed [facility] Influenza Virus Vaccine 2014-10-03 00:00:00 Completed [facility] Influenza Virus Vaccine Quad .5 mL IM 6+ MO 2014-10-03 00:00:00 Completed [facility] HPV 2014-10-03 00:00:00 Completed [facility] Influenza Virus Vaccine 2014-10-03 00:00:00 Completed [facility] Influenza Virus Vaccine Quad .5 mL IM 6+ MO 2014-10-03 00:00:00 Completed [facility] HPV 2014-10-03 00:00:00 Completed [facility] Influenza Virus Vaccine 2014-10-03 00:00:00 Completed [facility] Influenza Virus Vaccine Quad .5 mL IM 6+ MO 2014-10-03 00:00:00 Completed [facility] HPV 2014-10-03 00:00:00 Completed [facility] Influenza Virus Vaccine 2014-10-03 00:00:00 Completed [facility] Influenza Virus Vaccine Quad .5 mL IM 6+ MO 2014-10-03 00:00:00 Completed [facility] HPV 2014-10-03 00:00:00 Completed [facility] Influenza Virus Vaccine 2014-10-03 00:00:00 Completed [facility] Influenza Virus Vaccine Quad .5 mL IM 6+ MO 2014-10-03 00:00:00 Completed [facility] HPV 2014-10-03 00:00:00 Completed [facility] Influenza Virus Vaccine 2014-10-03 00:00:00 Completed [facility] Influenza Virus Vaccine Quad .5 mL IM 6+ MO 2014-10-03 00:00:00 Completed [facility] HPV 2014-10-03 00:00:00 Completed [facility] Influenza Virus Vaccine 2014-10-03 00:00:00 Completed [facility] Influenza Virus Vaccine Quad .5 mL IM 6+ MO 2014-10-03 00:00:00 Completed [facility] HPV 2014-10-03 00:00:00 Completed [facility] Influenza Virus Vaccine 2014-10-03 00:00:00 Completed [facility] Influenza Virus Vaccine Quad .5 mL IM 6+ MO 2014-10-03 00:00:00 Completed [facility] HPV 2014-10-03 00:00:00 Completed [facility] Influenza Virus Vaccine 2014-10-03 00:00:00 Completed [facility] Influenza Virus Vaccine Quad .5 mL IM 6+ MO 2014-10-03 00:00:00 Completed [facility] HPV 2014-10-03 00:00:00 Completed Influenza Virus Vaccine 2014-10-03 00:00:00 Completed Influenza Virus Vaccine Quad .5 mL IM 6+ MO (FLUZONE/FLULAVAL/FL UARIX) 2014-10-03 00:00:00 Completed HPV 2014-10-03 00:00:00 Completed Influenza Virus Vaccine 2014-10-03 00:00:00 Completed Influenza Virus Vaccine Quad .5 mL IM 6+ MO (FLUZONE/FLULAVAL/FL UARIX) 2014-10-03 00:00:00 Completed HPV 2014-10-03 00:00:00 Completed Influenza Virus Vaccine 2014-10-03 00:00:00 Completed Influenza Virus Vaccine Quad .5 mL IM 6+ MO (FLUZONE/FLULAVAL/FL UARIX) 2014-10-03 00:00:00 Completed HPV 2014-10-03 00:00:00 Completed Influenza Virus Vaccine 2014-10-03 00:00:00 Completed Influenza Virus Vaccine Quad .5 mL IM 6+ MO (FLUZONE/FLULAVAL/FL UARIX) 2014-10-03 00:00:00 Completed HPV 2014-10-03 00:00:00 Completed Influenza Virus Vaccine 2014-10-03 00:00:00 Completed Influenza Virus Vaccine Quad .5 mL IM 6+ MO (FLUZONE/FLULAVAL/FL UARIX) 2014-10-03 00:00:00 Completed HPV 2014-06-05 00:00:00 Completed [facility] Meningococcal Vaccine 2014-06-05 00:00:00 Completed [facility] TDAP 2014-06-05 00:00:00 Completed [facility] Varicella (varivax)(chicken pox) 2014-06-05 00:00:00 Completed [facility] HPV 2014-06-05 00:00:00 Completed [facility] Meningococcal Vaccine 2014-06-05 00:00:00 Completed [facility] TDAP 2014-06-05 00:00:00 Completed [facility] Varicella (varivax)(chicken pox) 2014-06-05 00:00:00 Completed [facility] HPV 2014-06-05 00:00:00 Completed [facility] Meningococcal Vaccine 2014-06-05 00:00:00 Completed [facility] TDAP 2014-06-05 00:00:00 Completed [facility] Varicella (varivax)(chicken pox) 2014-06-05 00:00:00 Completed [facility] HPV 2014-06-05 00:00:00 Completed [facility] Meningococcal Vaccine 2014-06-05 00:00:00 Completed [facility] TDAP 2014-06-05 00:00:00 Completed [facility] Varicella (varivax)(chicken pox) 2014-06-05 00:00:00 Completed [facility] HPV 2014-06-05 00:00:00 Completed [facility] Meningococcal Vaccine 2014-06-05 00:00:00 Completed [facility] TDAP 2014-06-05 00:00:00 Completed [facility] Varicella (varivax)(chicken pox) 2014-06-05 00:00:00 Completed [facility] HPV 2014-06-05 00:00:00 Completed [facility] Meningococcal Vaccine 2014-06-05 00:00:00 Completed [facility] TDAP 2014-06-05 00:00:00 Completed [facility] Varicella (varivax)(chicken pox) 2014-06-05 00:00:00 Completed [facility] HPV 2014-06-05 00:00:00 Completed [facility] Meningococcal Vaccine 2014-06-05 00:00:00 Completed [facility] TDAP 2014-06-05 00:00:00 Completed [facility] Varicella (varivax)(chicken pox) 2014-06-05 00:00:00 Completed [facility] HPV 2014-06-05 00:00:00 Completed [facility] Meningococcal Vaccine 2014-06-05 00:00:00 Completed [facility] TDAP 2014-06-05 00:00:00 Completed [facility] Varicella (varivax)(chicken pox) 2014-06-05 00:00:00 Completed [facility] HPV 2014-06-05 00:00:00 Completed [facility] Meningococcal Vaccine 2014-06-05 00:00:00 Completed [facility] TDAP 2014-06-05 00:00:00 Completed [facility] Varicella (varivax)(chicken pox) 2014-06-05 00:00:00 Completed [facility] HPV 2014-06-05 00:00:00 Completed [facility] Meningococcal Vaccine 2014-06-05 00:00:00 Completed [facility] TDAP 2014-06-05 00:00:00 Completed [facility] Varicella (varivax)(chicken pox) 2014-06-05 00:00:00 Completed [facility] Meningococcal Polysaccharide (groups A, C, Y and W-135) conjugate vaccine (MCV4P) 2014-06-05 00:00:00 Completed [facility] HPV 2014-06-05 00:00:00 Completed [facility] Meningococcal Vaccine 2014-06-05 00:00:00 Completed [facility] TDAP 2014-06-05 00:00:00 Completed [facility] Varicella (varivax)(chicken pox) 2014-06-05 00:00:00 Completed [facility] Meningococcal Polysaccharide (groups A, C, Y and W-135) conjugate vaccine (MCV4P) 2014-06-05 00:00:00 Completed [facility] HPV 2014-06-05 00:00:00 Completed [facility] Meningococcal Vaccine 2014-06-05 00:00:00 Completed [facility] TDAP 2014-06-05 00:00:00 Completed [facility] Varicella (varivax)(chicken pox) 2014-06-05 00:00:00 Completed [facility] Meningococcal Polysaccharide (groups A, C, Y and W-135) conjugate vaccine (MCV4P) 2014-06-05 00:00:00 Completed [facility] HPV 2014-06-05 00:00:00 Completed [facility] Meningococcal Vaccine 2014-06-05 00:00:00 Completed [facility] TDAP 2014-06-05 00:00:00 Completed [facility] Varicella (varivax)(chicken pox) 2014-06-05 00:00:00 Completed [facility] Meningococcal Polysaccharide (groups A, C, Y and W-135) conjugate vaccine (MCV4P) 2014-06-05 00:00:00 Completed [facility] HPV 2014-06-05 00:00:00 Completed [facility] Meningococcal Vaccine 2014-06-05 00:00:00 Completed [facility] TDAP 2014-06-05 00:00:00 Completed [facility] Varicella (varivax)(chicken pox) 2014-06-05 00:00:00 Completed [facility] Meningococcal Polysaccharide (groups A, C, Y and W-135) conjugate vaccine (MCV4P) 2014-06-05 00:00:00 Completed [facility] HPV 2014-06-05 00:00:00 Completed [facility] Meningococcal Vaccine 2014-06-05 00:00:00 Completed [facility] TDAP 2014-06-05 00:00:00 Completed [facility] Varicella (varivax)(chicken pox) 2014-06-05 00:00:00 Completed [facility] Meningococcal Polysaccharide (groups A, C, Y and W-135) conjugate vaccine (MCV4P) 2014-06-05 00:00:00 Completed [facility] HPV 2014-06-05 00:00:00 Completed [facility] Meningococcal Vaccine 2014-06-05 00:00:00 Completed [facility] TDAP 2014-06-05 00:00:00 Completed [facility] Varicella (varivax)(chicken pox) 2014-06-05 00:00:00 Completed [facility] Meningococcal Polysaccharide (groups A, C, Y and W-135) conjugate vaccine (MCV4P) 2014-06-05 00:00:00 Completed [facility] HPV 2014-06-05 00:00:00 Completed [facility] Meningococcal Vaccine 2014-06-05 00:00:00 Completed [facility] TDAP 2014-06-05 00:00:00 Completed [facility] Varicella (varivax)(chicken pox) 2014-06-05 00:00:00 Completed [facility] Meningococcal Polysaccharide (groups A, C, Y and W-135) conjugate vaccine (MCV4P) 2014-06-05 00:00:00 Completed [facility] HPV 2014-06-05 00:00:00 Completed [facility] Meningococcal Vaccine 2014-06-05 00:00:00 Completed [facility] TDAP 2014-06-05 00:00:00 Completed [facility] Varicella (varivax)(chicken pox) 2014-06-05 00:00:00 Completed [facility] Meningococcal Polysaccharide (groups A, C, Y and W-135) conjugate vaccine (MCV4P) 2014-06-05 00:00:00 Completed [facility] HPV 2014-06-05 00:00:00 Completed [facility] Meningococcal Vaccine 2014-06-05 00:00:00 Completed [facility] TDAP 2014-06-05 00:00:00 Completed [facility] Varicella (varivax)(chicken pox) 2014-06-05 00:00:00 Completed [facility] Meningococcal Polysaccharide (groups A, C, Y and W-135) conjugate vaccine (MCV4P) 2014-06-05 00:00:00 Completed [facility] HPV 2014-06-05 00:00:00 Completed [facility] Meningococcal Vaccine 2014-06-05 00:00:00 Completed [facility] TDAP 2014-06-05 00:00:00 Completed [facility] Varicella (varivax)(chicken pox) 2014-06-05 00:00:00 Completed [facility] Meningococcal Polysaccharide (groups A, C, Y and W-135) conjugate vaccine (MCV4P) 2014-06-05 00:00:00 Completed [facility] HPV 2014-06-05 00:00:00 Completed [facility] Meningococcal Vaccine 2014-06-05 00:00:00 Completed [facility] TDAP 2014-06-05 00:00:00 Completed [facility] Varicella (varivax)(chicken pox) 2014-06-05 00:00:00 Completed [facility] Meningococcal Polysaccharide (groups A, C, Y and W-135) conjugate vaccine (MCV4P) 2014-06-05 00:00:00 Completed [facility] HPV 2014-06-05 00:00:00 Completed Meningococcal Vaccine 2014-06-05 00:00:00 Completed TDAP 2014-06-05 00:00:00 Completed Varicella (varivax)(chicken pox) 2014-06-05 00:00:00 Completed Meningococcal Polysaccharide (groups A, C, Y and W-135) conjugate vaccine (MCV4P) 2014-06-05 00:00:00 Completed HPV 2014-06-05 00:00:00 Completed Meningococcal Vaccine 2014-06-05 00:00:00 Completed TDAP 2014-06-05 00:00:00 Completed Varicella (varivax)(chicken pox) 2014-06-05 00:00:00 Completed Meningococcal Polysaccharide (groups A, C, Y and W-135) conjugate vaccine (MCV4P) 2014-06-05 00:00:00 Completed HPV 2014-06-05 00:00:00 Completed Meningococcal Vaccine 2014-06-05 00:00:00 Completed TDAP 2014-06-05 00:00:00 Completed Varicella (varivax)(chicken pox) 2014-06-05 00:00:00 Completed Meningococcal Polysaccharide (groups A, C, Y and W-135) conjugate vaccine (MCV4P) 2014-06-05 00:00:00 Completed HPV 2014-06-05 00:00:00 Completed Meningococcal Vaccine 2014-06-05 00:00:00 Completed TDAP 2014-06-05 00:00:00 Completed Varicella (varivax)(chicken pox) 2014-06-05 00:00:00 Completed Meningococcal Polysaccharide (groups A, C, Y and W-135) conjugate vaccine (MCV4P) 2014-06-05 00:00:00 Completed HPV 2014-06-05 00:00:00 Completed Meningococcal Vaccine 2014-06-05 00:00:00 Completed TDAP 2014-06-05 00:00:00 Completed Varicella (varivax)(chicken pox) 2014-06-05 00:00:00 Completed Meningococcal Polysaccharide (groups A, C, Y and W-135) conjugate vaccine (MCV4P) 2014-06-05 00:00:00 Completed HEPATITIS A 2006-01-21 00:00:00 Completed [facility] HEPATITIS A 2006-01-21 00:00:00 Completed [facility] HEPATITIS A 2006-01-21 00:00:00 Completed [facility] HEPATITIS A 2006-01-21 00:00:00 Completed [facility] HEPATITIS A 2006-01-21 00:00:00 Completed [facility] HEPATITIS A 2006-01-21 00:00:00 Completed [facility] HEPATITIS A 2006-01-21 00:00:00 Completed [facility] HEPATITIS A 2006-01-21 00:00:00 Completed [facility] HEPATITIS A 2006-01-21 00:00:00 Completed [facility] HEPATITIS A 2006-01-21 00:00:00 Completed [facility] HEPATITIS A 2006-01-21 00:00:00 Completed [facility] HEPATITIS A 2006-01-21 00:00:00 Completed [facility] HEPATITIS A 2006-01-21 00:00:00 Completed [facility] HEPATITIS A 2006-01-21 00:00:00 Completed [facility] HEPATITIS A 2006-01-21 00:00:00 Completed [facility] HEPATITIS A 2006-01-21 00:00:00 Completed [facility] HEPATITIS A 2006-01-21 00:00:00 Completed [facility] HEPATITIS A 2006-01-21 00:00:00 Completed [facility] HEPATITIS A 2006-01-21 00:00:00 Completed [facility] HEPATITIS A 2006-01-21 00:00:00 Completed [facility] HEPATITIS A 2006-01-21 00:00:00 Completed [facility] HEPATITIS A 2006-01-21 00:00:00 Completed HEPATITIS A 2006-01-21 00:00:00 Completed HEPATITIS A 2006-01-21 00:00:00 Completed HEPATITIS A 2006-01-21 00:00:00 Completed HEPATITIS A 2006-01-21 00:00:00 Completed Polio (IPV/OPV) 2005-06-09 00:00:00 Completed [facility] Polio (IPV/OPV) 2005-06-09 00:00:00 Completed [facility] Polio (IPV/OPV) 2005-06-09 00:00:00 Completed [facility] Polio (IPV/OPV) 2005-06-09 00:00:00 Completed [facility] Polio (IPV/OPV) 2005-06-09 00:00:00 Completed [facility] Polio (IPV/OPV) 2005-06-09 00:00:00 Completed [facility] Polio (IPV/OPV) 2005-06-09 00:00:00 Completed [facility] Polio (IPV/OPV) 2005-06-09 00:00:00 Completed [facility] Polio (IPV/OPV) 2005-06-09 00:00:00 Completed [facility] Polio (IPV/OPV) 2005-06-09 00:00:00 Completed [facility] IPV 2005-06-09 00:00:00 Completed [facility] Polio (IPV/OPV) 2005-06-09 00:00:00 Completed [facility] IPV 2005-06-09 00:00:00 Completed [facility] Polio (IPV/OPV) 2005-06-09 00:00:00 Completed [facility] IPV 2005-06-09 00:00:00 Completed [facility] Polio (IPV/OPV) 2005-06-09 00:00:00 Completed [facility] IPV 2005-06-09 00:00:00 Completed [facility] Polio (IPV/OPV) 2005-06-09 00:00:00 Completed [facility] IPV 2005-06-09 00:00:00 Completed [facility] Polio (IPV/OPV) 2005-06-09 00:00:00 Completed [facility] IPV 2005-06-09 00:00:00 Completed [facility] Polio (IPV/OPV) 2005-06-09 00:00:00 Completed [facility] IPV 2005-06-09 00:00:00 Completed [facility] Polio (IPV/OPV) 2005-06-09 00:00:00 Completed [facility] IPV 2005-06-09 00:00:00 Completed [facility] Polio (IPV/OPV) 2005-06-09 00:00:00 Completed [facility] IPV 2005-06-09 00:00:00 Completed [facility] Polio (IPV/OPV) 2005-06-09 00:00:00 Completed [facility] IPV 2005-06-09 00:00:00 Completed [facility] Polio (IPV/OPV) 2005-06-09 00:00:00 Completed [facility] IPV 2005-06-09 00:00:00 Completed [facility] Polio (IPV/OPV) 2005-06-09 00:00:00 Completed [facility] IPV 2005-06-09 00:00:00 Completed [facility] Polio (IPV/OPV) 2005-06-09 00:00:00 Completed IPV 2005-06-09 00:00:00 Completed Polio (IPV/OPV) 2005-06-09 00:00:00 Completed IPV 2005-06-09 00:00:00 Completed Polio (IPV/OPV) 2005-06-09 00:00:00 Completed IPV 2005-06-09 00:00:00 Completed Polio (IPV/OPV) 2005-06-09 00:00:00 Completed IPV 2005-06-09 00:00:00 Completed Polio (IPV/OPV) 2005-06-09 00:00:00 Completed IPV 2005-06-09 00:00:00 Completed DTAP 2005-06-02 00:00:00 Completed [facility] HEPATITIS A 2005-06-02 00:00:00 Completed [facility] MMR 2005-06-02 00:00:00 Completed [facility] DTAP 2005-06-02 00:00:00 Completed [facility] HEPATITIS A 2005-06-02 00:00:00 Completed [facility] MMR 2005-06-02 00:00:00 Completed [facility] DTAP 2005-06-02 00:00:00 Completed [facility] HEPATITIS A 2005-06-02 00:00:00 Completed [facility] MMR 2005-06-02 00:00:00 Completed [facility] DTAP 2005-06-02 00:00:00 Completed [facility] HEPATITIS A 2005-06-02 00:00:00 Completed [facility] MMR 2005-06-02 00:00:00 Completed [facility] DTAP 2005-06-02 00:00:00 Completed [facility] HEPATITIS A 2005-06-02 00:00:00 Completed [facility] MMR 2005-06-02 00:00:00 Completed [facility] DTAP 2005-06-02 00:00:00 Completed [facility] HEPATITIS A 2005-06-02 00:00:00 Completed [facility] MMR 2005-06-02 00:00:00 Completed [facility] DTAP 2005-06-02 00:00:00 Completed [facility] HEPATITIS A 2005-06-02 00:00:00 Completed [facility] MMR 2005-06-02 00:00:00 Completed [facility] DTAP 2005-06-02 00:00:00 Completed [facility] HEPATITIS A 2005-06-02 00:00:00 Completed [facility] MMR 2005-06-02 00:00:00 Completed [facility] DTAP 2005-06-02 00:00:00 Completed [facility] HEPATITIS A 2005-06-02 00:00:00 Completed [facility] MMR 2005-06-02 00:00:00 Completed [facility] DTAP 2005-06-02 00:00:00 Completed [facility] HEPATITIS A 2005-06-02 00:00:00 Completed [facility] MMR 2005-06-02 00:00:00 Completed [facility] DTaP, Unspecified Formulation 2005-06-02 00:00:00 Completed [facility] DTAP 2005-06-02 00:00:00 Completed [facility] HEPATITIS A 2005-06-02 00:00:00 Completed [facility] MMR 2005-06-02 00:00:00 Completed [facility] DTaP, Unspecified Formulation 2005-06-02 00:00:00 Completed [facility] DTAP 2005-06-02 00:00:00 Completed [facility] HEPATITIS A 2005-06-02 00:00:00 Completed [facility] MMR 2005-06-02 00:00:00 Completed [facility] DTaP, Unspecified Formulation 2005-06-02 00:00:00 Completed [facility] DTAP 2005-06-02 00:00:00 Completed [facility] HEPATITIS A 2005-06-02 00:00:00 Completed [facility] MMR 2005-06-02 00:00:00 Completed [facility] DTaP, Unspecified Formulation 2005-06-02 00:00:00 Completed [facility] DTAP 2005-06-02 00:00:00 Completed [facility] HEPATITIS A 2005-06-02 00:00:00 Completed [facility] MMR 2005-06-02 00:00:00 Completed [facility] DTaP, Unspecified Formulation 2005-06-02 00:00:00 Completed [facility] DTAP 2005-06-02 00:00:00 Completed [facility] HEPATITIS A 2005-06-02 00:00:00 Completed [facility] MMR 2005-06-02 00:00:00 Completed [facility] DTaP, Unspecified Formulation 2005-06-02 00:00:00 Completed [facility] DTAP 2005-06-02 00:00:00 Completed [facility] HEPATITIS A 2005-06-02 00:00:00 Completed [facility] MMR 2005-06-02 00:00:00 Completed [facility] DTaP, Unspecified Formulation 2005-06-02 00:00:00 Completed [facility] DTAP 2005-06-02 00:00:00 Completed [facility] HEPATITIS A 2005-06-02 00:00:00 Completed [facility] MMR 2005-06-02 00:00:00 Completed [facility] DTaP, Unspecified Formulation 2005-06-02 00:00:00 Completed [facility] DTAP 2005-06-02 00:00:00 Completed [facility] HEPATITIS A 2005-06-02 00:00:00 Completed [facility] MMR 2005-06-02 00:00:00 Completed [facility] DTaP, Unspecified Formulation 2005-06-02 00:00:00 Completed [facility] DTAP 2005-06-02 00:00:00 Completed [facility] HEPATITIS A 2005-06-02 00:00:00 Completed [facility] MMR 2005-06-02 00:00:00 Completed [facility] DTaP, Unspecified Formulation 2005-06-02 00:00:00 Completed [facility] DTAP 2005-06-02 00:00:00 Completed [facility] HEPATITIS A 2005-06-02 00:00:00 Completed [facility] MMR 2005-06-02 00:00:00 Completed [facility] DTaP, Unspecified Formulation 2005-06-02 00:00:00 Completed [facility] DTAP 2005-06-02 00:00:00 Completed [facility] HEPATITIS A 2005-06-02 00:00:00 Completed [facility] MMR 2005-06-02 00:00:00 Completed [facility] DTaP, Unspecified Formulation 2005-06-02 00:00:00 Completed [facility] DTAP 2005-06-02 00:00:00 Completed HEPATITIS A 2005-06-02 00:00:00 Completed MMR 2005-06-02 00:00:00 Completed DTaP, Unspecified Formulation 2005-06-02 00:00:00 Completed DTAP 2005-06-02 00:00:00 Completed HEPATITIS A 2005-06-02 00:00:00 Completed MMR 2005-06-02 00:00:00 Completed DTaP, Unspecified Formulation 2005-06-02 00:00:00 Completed DTAP 2005-06-02 00:00:00 Completed HEPATITIS A 2005-06-02 00:00:00 Completed MMR 2005-06-02 00:00:00 Completed DTaP, Unspecified Formulation 2005-06-02 00:00:00 Completed DTAP 2005-06-02 00:00:00 Completed HEPATITIS A 2005-06-02 00:00:00 Completed MMR 2005-06-02 00:00:00 Completed DTaP, Unspecified Formulation 2005-06-02 00:00:00 Completed DTAP 2005-06-02 00:00:00 Completed HEPATITIS A 2005-06-02 00:00:00 Completed MMR 2005-06-02 00:00:00 Completed DTaP, Unspecified Formulation 2005-06-02 00:00:00 Completed Pneumococcal 13 Conjugate, PCV13 (Prevnar 13) 2003-08-06 00:00:00 Completed [facility] Pneumococcal 13 Conjugate, PCV13 (Prevnar 13) 2003-08-06 00:00:00 Completed [facility] Pneumococcal 13 Conjugate, PCV13 (Prevnar 13) 2003-08-06 00:00:00 Completed [facility] Pneumococcal 13 Conjugate, PCV13 (Prevnar 13) 2003-08-06 00:00:00 Completed [facility] Pneumococcal 13 Conjugate, PCV13 (Prevnar 13) 2003-08-06 00:00:00 Completed [facility] Pneumococcal 13 Conjugate, PCV13 (Prevnar 13) 2003-08-06 00:00:00 Completed [facility] Pneumococcal 13 Conjugate, PCV13 (Prevnar 13) 2003-08-06 00:00:00 Completed [facility] Pneumococcal 13 Conjugate, PCV13 (Prevnar 13) 2003-08-06 00:00:00 Completed [facility] Pneumococcal 13 Conjugate, PCV13 (Prevnar 13) 2003-08-06 00:00:00 Completed [facility] Pneumococcal 13 Conjugate, PCV13 (Prevnar 13) 2003-08-06 00:00:00 Completed [facility] Pneumococcal 7 Conjugate, PCV7 (Prevnar7) 2003-08-06 00:00:00 Completed [facility] Pneumococcal 13 Conjugate, PCV13 (Prevnar 13) 2003-08-06 00:00:00 Completed [facility] Pneumococcal 7 Conjugate, PCV7 (Prevnar7) 2003-08-06 00:00:00 Completed [facility] Pneumococcal 13 Conjugate, PCV13 (Prevnar 13) 2003-08-06 00:00:00 Completed [facility] Pneumococcal 7 Conjugate, PCV7 (Prevnar7) 2003-08-06 00:00:00 Completed [facility] Pneumococcal 13 Conjugate, PCV13 (Prevnar 13) 2003-08-06 00:00:00 Completed [facility] Pneumococcal 7 Conjugate, PCV7 (Prevnar7) 2003-08-06 00:00:00 Completed [facility] Pneumococcal 13 Conjugate, PCV13 (Prevnar 13) 2003-08-06 00:00:00 Completed [facility] Pneumococcal 7 Conjugate, PCV7 (Prevnar7) 2003-08-06 00:00:00 Completed [facility] Pneumococcal 13 Conjugate, PCV13 (Prevnar 13) 2003-08-06 00:00:00 Completed [facility] Pneumococcal 7 Conjugate, PCV7 (Prevnar7) 2003-08-06 00:00:00 Completed [facility] Pneumococcal 13 Conjugate, PCV13 (Prevnar 13) 2003-08-06 00:00:00 Completed [facility] Pneumococcal 7 Conjugate, PCV7 (Prevnar7) 2003-08-06 00:00:00 Completed [facility] Pneumococcal 13 Conjugate, PCV13 (Prevnar 13) 2003-08-06 00:00:00 Completed [facility] Pneumococcal 7 Conjugate, PCV7 (Prevnar7) 2003-08-06 00:00:00 Completed [facility] Pneumococcal 13 Conjugate, PCV13 (Prevnar 13) 2003-08-06 00:00:00 Completed [facility] Pneumococcal 7 Conjugate, PCV7 (Prevnar7) 2003-08-06 00:00:00 Completed [facility] Pneumococcal 13 Conjugate, PCV13 (Prevnar 13) 2003-08-06 00:00:00 Completed [facility] Pneumococcal 7 Conjugate, PCV7 (Prevnar7) 2003-08-06 00:00:00 Completed [facility] Pneumococcal 13 Conjugate, PCV13 (Prevnar 13) 2003-08-06 00:00:00 Completed [facility] Pneumococcal 7 Conjugate, PCV7 (Prevnar7) 2003-08-06 00:00:00 Completed [facility] Pneumococcal 13 Conjugate, PCV13 (Prevnar 13) 2003-08-06 00:00:00 Completed [facility] Pneumococcal 7 Conjugate, PCV7 (Prevnar7) 2003-08-06 00:00:00 Completed [facility] Pneumococcal 13 Conjugate, PCV13 (Prevnar 13) 2003-08-06 00:00:00 Completed Pneumococcal 7 Conjugate, PCV7 (Prevnar7) 2003-08-06 00:00:00 Completed Pneumococcal 13 Conjugate, PCV13 (Prevnar 13) 2003-08-06 00:00:00 Completed Pneumococcal 7 Conjugate, PCV7 (Prevnar7) 2003-08-06 00:00:00 Completed Pneumococcal 13 Conjugate, PCV13 (Prevnar 13) 2003-08-06 00:00:00 Completed Pneumococcal 7 Conjugate, PCV7 (Prevnar7) 2003-08-06 00:00:00 Completed Pneumococcal 13 Conjugate, PCV13 (Prevnar 13) 2003-08-06 00:00:00 Completed Pneumococcal 7 Conjugate, PCV7 (Prevnar7) 2003-08-06 00:00:00 Completed Pneumococcal 13 Conjugate, PCV13 (Prevnar 13) 2003-08-06 00:00:00 Completed Pneumococcal 7 Conjugate, PCV7 (Prevnar7) 2003-08-06 00:00:00 Completed DTAP 2002-08-23 00:00:00 Completed [facility] Pneumococcal 13 Conjugate, PCV13 (Prevnar 13) 2002-08-23 00:00:00 Completed [facility] DTAP 2002-08-23 00:00:00 Completed [facility] Pneumococcal 13 Conjugate, PCV13 (Prevnar 13) 2002-08-23 00:00:00 Completed [facility] DTAP 2002-08-23 00:00:00 Completed [facility] Pneumococcal 13 Conjugate, PCV13 (Prevnar 13) 2002-08-23 00:00:00 Completed [facility] DTAP 2002-08-23 00:00:00 Completed [facility] Pneumococcal 13 Conjugate, PCV13 (Prevnar 13) 2002-08-23 00:00:00 Completed [facility] DTAP 2002-08-23 00:00:00 Completed [facility] Pneumococcal 13 Conjugate, PCV13 (Prevnar 13) 2002-08-23 00:00:00 Completed [facility] DTAP 2002-08-23 00:00:00 Completed [facility] Pneumococcal 13 Conjugate, PCV13 (Prevnar 13) 2002-08-23 00:00:00 Completed [facility] DTAP 2002-08-23 00:00:00 Completed [facility] Pneumococcal 13 Conjugate, PCV13 (Prevnar 13) 2002-08-23 00:00:00 Completed [facility] DTAP 2002-08-23 00:00:00 Completed [facility] Pneumococcal 13 Conjugate, PCV13 (Prevnar 13) 2002-08-23 00:00:00 Completed [facility] DTAP 2002-08-23 00:00:00 Completed [facility] Pneumococcal 13 Conjugate, PCV13 (Prevnar 13) 2002-08-23 00:00:00 Completed [facility] DTAP 2002-08-23 00:00:00 Completed [facility] Pneumococcal 13 Conjugate, PCV13 (Prevnar 13) 2002-08-23 00:00:00 Completed [facility] DTaP, Unspecified Formulation 2002-08-23 00:00:00 Completed [facility] Pneumococcal 7 Conjugate, PCV7 (Prevnar7) 2002-08-23 00:00:00 Completed [facility] DTAP 2002-08-23 00:00:00 Completed [facility] Pneumococcal 13 Conjugate, PCV13 (Prevnar 13) 2002-08-23 00:00:00 Completed [facility] DTaP, Unspecified Formulation 2002-08-23 00:00:00 Completed [facility] Pneumococcal 7 Conjugate, PCV7 (Prevnar7) 2002-08-23 00:00:00 Completed [facility] DTAP 2002-08-23 00:00:00 Completed [facility] Pneumococcal 13 Conjugate, PCV13 (Prevnar 13) 2002-08-23 00:00:00 Completed [facility] DTaP, Unspecified Formulation 2002-08-23 00:00:00 Completed [facility] Pneumococcal 7 Conjugate, PCV7 (Prevnar7) 2002-08-23 00:00:00 Completed [facility] DTAP 2002-08-23 00:00:00 Completed [facility] Pneumococcal 13 Conjugate, PCV13 (Prevnar 13) 2002-08-23 00:00:00 Completed [facility] DTaP, Unspecified Formulation 2002-08-23 00:00:00 Completed [facility] Pneumococcal 7 Conjugate, PCV7 (Prevnar7) 2002-08-23 00:00:00 Completed [facility] DTAP 2002-08-23 00:00:00 Completed [facility] Pneumococcal 13 Conjugate, PCV13 (Prevnar 13) 2002-08-23 00:00:00 Completed [facility] DTaP, Unspecified Formulation 2002-08-23 00:00:00 Completed [facility] Pneumococcal 7 Conjugate, PCV7 (Prevnar7) 2002-08-23 00:00:00 Completed [facility] DTAP 2002-08-23 00:00:00 Completed [facility] Pneumococcal 13 Conjugate, PCV13 (Prevnar 13) 2002-08-23 00:00:00 Completed [facility] DTaP, Unspecified Formulation 2002-08-23 00:00:00 Completed [facility] Pneumococcal 7 Conjugate, PCV7 (Prevnar7) 2002-08-23 00:00:00 Completed [facility] DTAP 2002-08-23 00:00:00 Completed [facility] Pneumococcal 13 Conjugate, PCV13 (Prevnar 13) 2002-08-23 00:00:00 Completed [facility] DTaP, Unspecified Formulation 2002-08-23 00:00:00 Completed [facility] Pneumococcal 7 Conjugate, PCV7 (Prevnar7) 2002-08-23 00:00:00 Completed [facility] DTAP 2002-08-23 00:00:00 Completed [facility] Pneumococcal 13 Conjugate, PCV13 (Prevnar 13) 2002-08-23 00:00:00 Completed [facility] DTaP, Unspecified Formulation 2002-08-23 00:00:00 Completed [facility] Pneumococcal 7 Conjugate, PCV7 (Prevnar7) 2002-08-23 00:00:00 Completed [facility] DTAP 2002-08-23 00:00:00 Completed [facility] Pneumococcal 13 Conjugate, PCV13 (Prevnar 13) 2002-08-23 00:00:00 Completed [facility] DTaP, Unspecified Formulation 2002-08-23 00:00:00 Completed [facility] Pneumococcal 7 Conjugate, PCV7 (Prevnar7) 2002-08-23 00:00:00 Completed [facility] DTAP 2002-08-23 00:00:00 Completed [facility] Pneumococcal 13 Conjugate, PCV13 (Prevnar 13) 2002-08-23 00:00:00 Completed [facility] DTaP, Unspecified Formulation 2002-08-23 00:00:00 Completed [facility] Pneumococcal 7 Conjugate, PCV7 (Prevnar7) 2002-08-23 00:00:00 Completed [facility] DTAP 2002-08-23 00:00:00 Completed [facility] Pneumococcal 13 Conjugate, PCV13 (Prevnar 13) 2002-08-23 00:00:00 Completed [facility] DTaP, Unspecified Formulation 2002-08-23 00:00:00 Completed [facility] Pneumococcal 7 Conjugate, PCV7 (Prevnar7) 2002-08-23 00:00:00 Completed [facility] DTAP 2002-08-23 00:00:00 Completed [facility] Pneumococcal 13 Conjugate, PCV13 (Prevnar 13) 2002-08-23 00:00:00 Completed [facility] DTaP, Unspecified Formulation 2002-08-23 00:00:00 Completed [facility] Pneumococcal 7 Conjugate, PCV7 (Prevnar7) 2002-08-23 00:00:00 Completed [facility] DTAP 2002-08-23 00:00:00 Completed Pneumococcal 13 Conjugate, PCV13 (Prevnar 13) 2002-08-23 00:00:00 Completed DTaP, Unspecified Formulation 2002-08-23 00:00:00 Completed Pneumococcal 7 Conjugate, PCV7 (Prevnar7) 2002-08-23 00:00:00 Completed DTAP 2002-08-23 00:00:00 Completed Pneumococcal 13 Conjugate, PCV13 (Prevnar 13) 2002-08-23 00:00:00 Completed DTaP, Unspecified Formulation 2002-08-23 00:00:00 Completed Pneumococcal 7 Conjugate, PCV7 (Prevnar7) 2002-08-23 00:00:00 Completed DTAP 2002-08-23 00:00:00 Completed Pneumococcal 13 Conjugate, PCV13 (Prevnar 13) 2002-08-23 00:00:00 Completed DTaP, Unspecified Formulation 2002-08-23 00:00:00 Completed Pneumococcal 7 Conjugate, PCV7 (Prevnar7) 2002-08-23 00:00:00 Completed DTAP 2002-08-23 00:00:00 Completed Pneumococcal 13 Conjugate, PCV13 (Prevnar 13) 2002-08-23 00:00:00 Completed DTaP, Unspecified Formulation 2002-08-23 00:00:00 Completed Pneumococcal 7 Conjugate, PCV7 (Prevnar7) 2002-08-23 00:00:00 Completed DTAP 2002-08-23 00:00:00 Completed Pneumococcal 13 Conjugate, PCV13 (Prevnar 13) 2002-08-23 00:00:00 Completed DTaP, Unspecified Formulation 2002-08-23 00:00:00 Completed Pneumococcal 7 Conjugate, PCV7 (Prevnar7) 2002-08-23 00:00:00 Completed HIB 4 Dose Schedule 2002-05-23 00:00:00 Completed [facility] MMR 2002-05-23 00:00:00 Completed [facility] Polio (IPV/OPV) 2002-05-23 00:00:00 Completed [facility] Varicella (varivax)(chicken pox) 2002-05-23 00:00:00 Completed [facility] HIB 4 Dose Schedule 2002-05-23 00:00:00 Completed [facility] MMR 2002-05-23 00:00:00 Completed [facility] Polio (IPV/OPV) 2002-05-23 00:00:00 Completed [facility] Varicella (varivax)(chicken pox) 2002-05-23 00:00:00 Completed [facility] HIB 4 Dose Schedule 2002-05-23 00:00:00 Completed [facility] MMR 2002-05-23 00:00:00 Completed [facility] Polio (IPV/OPV) 2002-05-23 00:00:00 Completed [facility] Varicella (varivax)(chicken pox) 2002-05-23 00:00:00 Completed [facility] HIB 4 Dose Schedule 2002-05-23 00:00:00 Completed [facility] MMR 2002-05-23 00:00:00 Completed [facility] Polio (IPV/OPV) 2002-05-23 00:00:00 Completed [facility] Varicella (varivax)(chicken pox) 2002-05-23 00:00:00 Completed [facility] HIB 4 Dose Schedule 2002-05-23 00:00:00 Completed [facility] MMR 2002-05-23 00:00:00 Completed [facility] Polio (IPV/OPV) 2002-05-23 00:00:00 Completed [facility] Varicella (varivax)(chicken pox) 2002-05-23 00:00:00 Completed [facility] HIB 4 Dose Schedule 2002-05-23 00:00:00 Completed [facility] MMR 2002-05-23 00:00:00 Completed [facility] Polio (IPV/OPV) 2002-05-23 00:00:00 Completed [facility] Varicella (varivax)(chicken pox) 2002-05-23 00:00:00 Completed [facility] HIB 4 Dose Schedule 2002-05-23 00:00:00 Completed [facility] MMR 2002-05-23 00:00:00 Completed [facility] Polio (IPV/OPV) 2002-05-23 00:00:00 Completed [facility] Varicella (varivax)(chicken pox) 2002-05-23 00:00:00 Completed [facility] HIB 4 Dose Schedule 2002-05-23 00:00:00 Completed [facility] MMR 2002-05-23 00:00:00 Completed [facility] Polio (IPV/OPV) 2002-05-23 00:00:00 Completed [facility] Varicella (varivax)(chicken pox) 2002-05-23 00:00:00 Completed [facility] HIB 4 Dose Schedule 2002-05-23 00:00:00 Completed [facility] MMR 2002-05-23 00:00:00 Completed [facility] Polio (IPV/OPV) 2002-05-23 00:00:00 Completed [facility] Varicella (varivax)(chicken pox) 2002-05-23 00:00:00 Completed [facility] HIB 4 Dose Schedule 2002-05-23 00:00:00 Completed [facility] MMR 2002-05-23 00:00:00 Completed [facility] Polio (IPV/OPV) 2002-05-23 00:00:00 Completed [facility] Varicella (varivax)(chicken pox) 2002-05-23 00:00:00 Completed [facility] IPV 2002-05-23 00:00:00 Completed [facility] HIB 4 Dose Schedule 2002-05-23 00:00:00 Completed [facility] MMR 2002-05-23 00:00:00 Completed [facility] Polio (IPV/OPV) 2002-05-23 00:00:00 Completed [facility] Varicella (varivax)(chicken pox) 2002-05-23 00:00:00 Completed [facility] IPV 2002-05-23 00:00:00 Completed [facility] HIB 4 Dose Schedule 2002-05-23 00:00:00 Completed [facility] MMR 2002-05-23 00:00:00 Completed [facility] Polio (IPV/OPV) 2002-05-23 00:00:00 Completed [facility] Varicella (varivax)(chicken pox) 2002-05-23 00:00:00 Completed [facility] IPV 2002-05-23 00:00:00 Completed [facility] HIB 4 Dose Schedule 2002-05-23 00:00:00 Completed [facility] MMR 2002-05-23 00:00:00 Completed [facility] Polio (IPV/OPV) 2002-05-23 00:00:00 Completed [facility] Varicella (varivax)(chicken pox) 2002-05-23 00:00:00 Completed [facility] IPV 2002-05-23 00:00:00 Completed [facility] HIB 4 Dose Schedule 2002-05-23 00:00:00 Completed [facility] MMR 2002-05-23 00:00:00 Completed [facility] Polio (IPV/OPV) 2002-05-23 00:00:00 Completed [facility] Varicella (varivax)(chicken pox) 2002-05-23 00:00:00 Completed [facility] IPV 2002-05-23 00:00:00 Completed [facility] HIB 4 Dose Schedule 2002-05-23 00:00:00 Completed [facility] MMR 2002-05-23 00:00:00 Completed [facility] Polio (IPV/OPV) 2002-05-23 00:00:00 Completed [facility] Varicella (varivax)(chicken pox) 2002-05-23 00:00:00 Completed [facility] IPV 2002-05-23 00:00:00 Completed [facility] HIB 4 Dose Schedule 2002-05-23 00:00:00 Completed [facility] MMR 2002-05-23 00:00:00 Completed [facility] Polio (IPV/OPV) 2002-05-23 00:00:00 Completed [facility] Varicella (varivax)(chicken pox) 2002-05-23 00:00:00 Completed [facility] IPV 2002-05-23 00:00:00 Completed [facility] HIB 4 Dose Schedule 2002-05-23 00:00:00 Completed [facility] MMR 2002-05-23 00:00:00 Completed [facility] Polio (IPV/OPV) 2002-05-23 00:00:00 Completed [facility] Varicella (varivax)(chicken pox) 2002-05-23 00:00:00 Completed [facility] IPV 2002-05-23 00:00:00 Completed [facility] HIB 4 Dose Schedule 2002-05-23 00:00:00 Completed [facility] MMR 2002-05-23 00:00:00 Completed [facility] Polio (IPV/OPV) 2002-05-23 00:00:00 Completed [facility] Varicella (varivax)(chicken pox) 2002-05-23 00:00:00 Completed [facility] IPV 2002-05-23 00:00:00 Completed [facility] HIB 4 Dose Schedule 2002-05-23 00:00:00 Completed [facility] MMR 2002-05-23 00:00:00 Completed [facility] Polio (IPV/OPV) 2002-05-23 00:00:00 Completed [facility] Varicella (varivax)(chicken pox) 2002-05-23 00:00:00 Completed [facility] IPV 2002-05-23 00:00:00 Completed [facility] HIB 4 Dose Schedule 2002-05-23 00:00:00 Completed [facility] MMR 2002-05-23 00:00:00 Completed [facility] Polio (IPV/OPV) 2002-05-23 00:00:00 Completed [facility] Varicella (varivax)(chicken pox) 2002-05-23 00:00:00 Completed [facility] IPV 2002-05-23 00:00:00 Completed [facility] HIB 4 Dose Schedule 2002-05-23 00:00:00 Completed [facility] MMR 2002-05-23 00:00:00 Completed [facility] Polio (IPV/OPV) 2002-05-23 00:00:00 Completed [facility] Varicella (varivax)(chicken pox) 2002-05-23 00:00:00 Completed [facility] IPV 2002-05-23 00:00:00 Completed [facility] HIB 4 Dose Schedule 2002-05-23 00:00:00 Completed MMR 2002-05-23 00:00:00 Completed Polio (IPV/OPV) 2002-05-23 00:00:00 Completed Varicella (varivax)(chicken pox) 2002-05-23 00:00:00 Completed IPV 2002-05-23 00:00:00 Completed HIB 4 Dose Schedule 2002-05-23 00:00:00 Completed MMR 2002-05-23 00:00:00 Completed Polio (IPV/OPV) 2002-05-23 00:00:00 Completed Varicella (varivax)(chicken pox) 2002-05-23 00:00:00 Completed IPV 2002-05-23 00:00:00 Completed HIB 4 Dose Schedule 2002-05-23 00:00:00 Completed MMR 2002-05-23 00:00:00 Completed Polio (IPV/OPV) 2002-05-23 00:00:00 Completed Varicella (varivax)(chicken pox) 2002-05-23 00:00:00 Completed IPV 2002-05-23 00:00:00 Completed HIB 4 Dose Schedule 2002-05-23 00:00:00 Completed MMR 2002-05-23 00:00:00 Completed Polio (IPV/OPV) 2002-05-23 00:00:00 Completed Varicella (varivax)(chicken pox) 2002-05-23 00:00:00 Completed IPV 2002-05-23 00:00:00 Completed HIB 4 Dose Schedule 2002-05-23 00:00:00 Completed MMR 2002-05-23 00:00:00 Completed Polio (IPV/OPV) 2002-05-23 00:00:00 Completed Varicella (varivax)(chicken pox) 2002-05-23 00:00:00 Completed IPV 2002-05-23 00:00:00 Completed DTAP 2001 00:00:00 Completed [facility] HIB 4 Dose Schedule 2001 00:00:00 Completed [facility] Hep B, Adol or Pedi Dosage 2001 00:00:00 Completed [facility] Pneumococcal 13 Conjugate, PCV13 (Prevnar 13) 2001 00:00:00 Completed [facility] DTAP 2001 00:00:00 Completed [facility] HIB 4 Dose Schedule 2001 00:00:00 Completed [facility] Hep B, Adol or Pedi Dosage 2001 00:00:00 Completed [facility] Pneumococcal 13 Conjugate, PCV13 (Prevnar 13) 2001 00:00:00 Completed [facility] DTAP 2001 00:00:00 Completed [facility] HIB 4 Dose Schedule 2001 00:00:00 Completed [facility] Hep B, Adol or Pedi Dosage 2001 00:00:00 Completed [facility] Pneumococcal 13 Conjugate, PCV13 (Prevnar 13) 2001 00:00:00 Completed [facility] DTAP 2001 00:00:00 Completed [facility] HIB 4 Dose Schedule 2001 00:00:00 Completed [facility] Hep B, Adol or Pedi Dosage 2001 00:00:00 Completed [facility] Pneumococcal 13 Conjugate, PCV13 (Prevnar 13) 2001 00:00:00 Completed [facility] DTAP 2001 00:00:00 Completed [facility] HIB 4 Dose Schedule 2001 00:00:00 Completed [facility] Hep B, Adol or Pedi Dosage 2001 00:00:00 Completed [facility] Pneumococcal 13 Conjugate, PCV13 (Prevnar 13) 2001 00:00:00 Completed [facility] DTAP 2001 00:00:00 Completed [facility] HIB 4 Dose Schedule 2001 00:00:00 Completed [facility] Hep B, Adol or Pedi Dosage 2001 00:00:00 Completed [facility] Pneumococcal 13 Conjugate, PCV13 (Prevnar 13) 2001 00:00:00 Completed [facility] DTAP 2001 00:00:00 Completed [facility] HIB 4 Dose Schedule 2001 00:00:00 Completed [facility] Hep B, Adol or Pedi Dosage 2001 00:00:00 Completed [facility] Pneumococcal 13 Conjugate, PCV13 (Prevnar 13) 2001 00:00:00 Completed [facility] DTAP 2001 00:00:00 Completed [facility] HIB 4 Dose Schedule 2001 00:00:00 Completed [facility] Hep B, Adol or Pedi Dosage 2001 00:00:00 Completed [facility] Pneumococcal 13 Conjugate, PCV13 (Prevnar 13) 2001 00:00:00 Completed [facility] DTAP 2001 00:00:00 Completed [facility] HIB 4 Dose Schedule 2001 00:00:00 Completed [facility] Hep B, Adol or Pedi Dosage 2001 00:00:00 Completed [facility] Pneumococcal 13 Conjugate, PCV13 (Prevnar 13) 2001 00:00:00 Completed [facility] DTAP 2001 00:00:00 Completed [facility] HIB 4 Dose Schedule 2001 00:00:00 Completed [facility] Hep B, Adol or Pedi Dosage 2001 00:00:00 Completed [facility] Pneumococcal 13 Conjugate, PCV13 (Prevnar 13) 2001 00:00:00 Completed [facility] DTaP, Unspecified Formulation 2001 00:00:00 Completed [facility] Pneumococcal 7 Conjugate, PCV7 (Prevnar7) 2001 00:00:00 Completed [facility] DTAP 2001 00:00:00 Completed [facility] HIB 4 Dose Schedule 2001 00:00:00 Completed [facility] Hep B, Adol or Pedi Dosage 2001 00:00:00 Completed [facility] Pneumococcal 13 Conjugate, PCV13 (Prevnar 13) 2001 00:00:00 Completed [facility] DTaP, Unspecified Formulation 2001 00:00:00 Completed [facility] Pneumococcal 7 Conjugate, PCV7 (Prevnar7) 2001 00:00:00 Completed [facility] DTAP 2001 00:00:00 Completed [facility] HIB 4 Dose Schedule 2001 00:00:00 Completed [facility] Hep B, Adol or Pedi Dosage 2001 00:00:00 Completed [facility] Pneumococcal 13 Conjugate, PCV13 (Prevnar 13) 2001 00:00:00 Completed [facility] DTaP, Unspecified Formulation 2001 00:00:00 Completed [facility] Pneumococcal 7 Conjugate, PCV7 (Prevnar7) 2001 00:00:00 Completed [facility] DTAP 2001 00:00:00 Completed [facility] HIB 4 Dose Schedule 2001 00:00:00 Completed [facility] Hep B, Adol or Pedi Dosage 2001 00:00:00 Completed [facility] Pneumococcal 13 Conjugate, PCV13 (Prevnar 13) 2001 00:00:00 Completed [facility] DTaP, Unspecified Formulation 2001 00:00:00 Completed [facility] Pneumococcal 7 Conjugate, PCV7 (Prevnar7) 2001 00:00:00 Completed [facility] DTAP 2001 00:00:00 Completed [facility] HIB 4 Dose Schedule 2001 00:00:00 Completed [facility] Hep B, Adol or Pedi Dosage 2001 00:00:00 Completed [facility] Pneumococcal 13 Conjugate, PCV13 (Prevnar 13) 2001 00:00:00 Completed [facility] DTaP, Unspecified Formulation 2001 00:00:00 Completed [facility] Pneumococcal 7 Conjugate, PCV7 (Prevnar7) 2001 00:00:00 Completed [facility] DTAP 2001 00:00:00 Completed [facility] HIB 4 Dose Schedule 2001 00:00:00 Completed [facility] Hep B, Adol or Pedi Dosage 2001 00:00:00 Completed [facility] Pneumococcal 13 Conjugate, PCV13 (Prevnar 13) 2001 00:00:00 Completed [facility] DTaP, Unspecified Formulation 2001 00:00:00 Completed [facility] Pneumococcal 7 Conjugate, PCV7 (Prevnar7) 2001 00:00:00 Completed [facility] DTAP 2001 00:00:00 Completed [facility] HIB 4 Dose Schedule 2001 00:00:00 Completed [facility] Hep B, Adol or Pedi Dosage 2001 00:00:00 Completed [facility] Pneumococcal 13 Conjugate, PCV13 (Prevnar 13) 2001 00:00:00 Completed [facility] DTaP, Unspecified Formulation 2001 00:00:00 Completed [facility] Pneumococcal 7 Conjugate, PCV7 (Prevnar7) 2001 00:00:00 Completed [facility] DTAP 2001 00:00:00 Completed [facility] HIB 4 Dose Schedule 2001 00:00:00 Completed [facility] Hep B, Adol or Pedi Dosage 2001 00:00:00 Completed [facility] Pneumococcal 13 Conjugate, PCV13 (Prevnar 13) 2001 00:00:00 Completed [facility] DTaP, Unspecified Formulation 2001 00:00:00 Completed [facility] Pneumococcal 7 Conjugate, PCV7 (Prevnar7) 2001 00:00:00 Completed [facility] DTAP 2001 00:00:00 Completed [facility] HIB 4 Dose Schedule 2001 00:00:00 Completed [facility] Hep B, Adol or Pedi Dosage 2001 00:00:00 Completed [facility] Pneumococcal 13 Conjugate, PCV13 (Prevnar 13) 2001 00:00:00 Completed [facility] DTaP, Unspecified Formulation 2001 00:00:00 Completed [facility] Pneumococcal 7 Conjugate, PCV7 (Prevnar7) 2001 00:00:00 Completed [facility] DTAP 2001 00:00:00 Completed [facility] HIB 4 Dose Schedule 2001 00:00:00 Completed [facility] Hep B, Adol or Pedi Dosage 2001 00:00:00 Completed [facility] Pneumococcal 13 Conjugate, PCV13 (Prevnar 13) 2001 00:00:00 Completed [facility] DTaP, Unspecified Formulation 2001 00:00:00 Completed [facility] Pneumococcal 7 Conjugate, PCV7 (Prevnar7) 2001 00:00:00 Completed [facility] DTAP 2001 00:00:00 Completed [facility] HIB 4 Dose Schedule 2001 00:00:00 Completed [facility] Hep B, Adol or Pedi Dosage 2001 00:00:00 Completed [facility] Pneumococcal 13 Conjugate, PCV13 (Prevnar 13) 2001 00:00:00 Completed [facility] DTaP, Unspecified Formulation 2001 00:00:00 Completed [facility] Pneumococcal 7 Conjugate, PCV7 (Prevnar7) 2001 00:00:00 Completed [facility] DTAP 2001 00:00:00 Completed [facility] HIB 4 Dose Schedule 2001 00:00:00 Completed [facility] Hep B, Adol or Pedi Dosage 2001 00:00:00 Completed [facility] Pneumococcal 13 Conjugate, PCV13 (Prevnar 13) 2001 00:00:00 Completed [facility] DTaP, Unspecified Formulation 2001 00:00:00 Completed [facility] Pneumococcal 7 Conjugate, PCV7 (Prevnar7) 2001 00:00:00 Completed [facility] DTAP 2001 00:00:00 Completed HIB 4 Dose Schedule 2001 00:00:00 Completed Hep B, Adol or Pedi Dosage 2001 00:00:00 Completed Pneumococcal 13 Conjugate, PCV13 (Prevnar 13) 2001 00:00:00 Completed DTaP, Unspecified Formulation 2001 00:00:00 Completed Pneumococcal 7 Conjugate, PCV7 (Prevnar7) 2001 00:00:00 Completed DTAP 2001 00:00:00 Completed HIB 4 Dose Schedule 2001 00:00:00 Completed Hep B, Adol or Pedi Dosage 2001 00:00:00 Completed Pneumococcal 13 Conjugate, PCV13 (Prevnar 13) 2001 00:00:00 Completed DTaP, Unspecified Formulation 2001 00:00:00 Completed Pneumococcal 7 Conjugate, PCV7 (Prevnar7) 2001 00:00:00 Completed DTAP 2001 00:00:00 Completed HIB 4 Dose Schedule 2001 00:00:00 Completed Hep B, Adol or Pedi Dosage 2001 00:00:00 Completed Pneumococcal 13 Conjugate, PCV13 (Prevnar 13) 2001 00:00:00 Completed DTaP, Unspecified Formulation 2001 00:00:00 Completed Pneumococcal 7 Conjugate, PCV7 (Prevnar7) 2001 00:00:00 Completed DTAP 2001 00:00:00 Completed HIB 4 Dose Schedule 2001 00:00:00 Completed Hep B, Adol or Pedi Dosage 2001 00:00:00 Completed Pneumococcal 13 Conjugate, PCV13 (Prevnar 13) 2001 00:00:00 Completed DTaP, Unspecified Formulation 2001 00:00:00 Completed Pneumococcal 7 Conjugate, PCV7 (Prevnar7) 2001 00:00:00 Completed DTAP 2001 00:00:00 Completed HIB 4 Dose Schedule 2001 00:00:00 Completed Hep B, Adol or Pedi Dosage 2001 00:00:00 Completed Pneumococcal 13 Conjugate, PCV13 (Prevnar 13) 2001 00:00:00 Completed DTaP, Unspecified Formulation 2001 00:00:00 Completed Pneumococcal 7 Conjugate, PCV7 (Prevnar7) 2001 00:00:00 Completed DTAP 2001 00:00:00 Completed [facility] HIB 4 Dose Schedule 2001 00:00:00 Completed [facility] Polio (IPV/OPV) 2001 00:00:00 Completed [facility] DTAP 2001 00:00:00 Completed [facility] HIB 4 Dose Schedule 2001 00:00:00 Completed [facility] Polio (IPV/OPV) 2001 00:00:00 Completed [facility] DTAP 2001 00:00:00 Completed [facility] HIB 4 Dose Schedule 2001 00:00:00 Completed [facility] Polio (IPV/OPV) 2001 00:00:00 Completed [facility] DTAP 2001 00:00:00 Completed [facility] HIB 4 Dose Schedule 2001 00:00:00 Completed [facility] Polio (IPV/OPV) 2001 00:00:00 Completed [facility] DTAP 2001 00:00:00 Completed [facility] HIB 4 Dose Schedule 2001 00:00:00 Completed [facility] Polio (IPV/OPV) 2001 00:00:00 Completed [facility] DTAP 2001 00:00:00 Completed [facility] HIB 4 Dose Schedule 2001 00:00:00 Completed [facility] Polio (IPV/OPV) 2001 00:00:00 Completed [facility] DTAP 2001 00:00:00 Completed [facility] HIB 4 Dose Schedule 2001 00:00:00 Completed [facility] Polio (IPV/OPV) 2001 00:00:00 Completed [facility] DTAP 2001 00:00:00 Completed [facility] HIB 4 Dose Schedule 2001 00:00:00 Completed [facility] Polio (IPV/OPV) 2001 00:00:00 Completed [facility] DTAP 2001 00:00:00 Completed [facility] HIB 4 Dose Schedule 2001 00:00:00 Completed [facility] Polio (IPV/OPV) 2001 00:00:00 Completed [facility] DTAP 2001 00:00:00 Completed [facility] HIB 4 Dose Schedule 2001 00:00:00 Completed [facility] Polio (IPV/OPV) 2001 00:00:00 Completed [facility] DTaP, Unspecified Formulation 2001 00:00:00 Completed [facility] IPV 2001 00:00:00 Completed [facility] DTAP 2001 00:00:00 Completed [facility] HIB 4 Dose Schedule 2001 00:00:00 Completed [facility] Polio (IPV/OPV) 2001 00:00:00 Completed [facility] DTaP, Unspecified Formulation 2001 00:00:00 Completed [facility] IPV 2001 00:00:00 Completed [facility] DTAP 2001 00:00:00 Completed [facility] HIB 4 Dose Schedule 2001 00:00:00 Completed [facility] Polio (IPV/OPV) 2001 00:00:00 Completed [facility] DTaP, Unspecified Formulation 2001 00:00:00 Completed [facility] IPV 2001 00:00:00 Completed [facility] DTAP 2001 00:00:00 Completed [facility] HIB 4 Dose Schedule 2001 00:00:00 Completed [facility] Polio (IPV/OPV) 2001 00:00:00 Completed [facility] DTaP, Unspecified Formulation 2001 00:00:00 Completed [facility] IPV 2001 00:00:00 Completed [facility] DTAP 2001 00:00:00 Completed [facility] HIB 4 Dose Schedule 2001 00:00:00 Completed [facility] Polio (IPV/OPV) 2001 00:00:00 Completed [facility] DTaP, Unspecified Formulation 2001 00:00:00 Completed [facility] IPV 2001 00:00:00 Completed [facility] DTAP 2001 00:00:00 Completed [facility] HIB 4 Dose Schedule 2001 00:00:00 Completed [facility] Polio (IPV/OPV) 2001 00:00:00 Completed [facility] DTaP, Unspecified Formulation 2001 00:00:00 Completed [facility] IPV 2001 00:00:00 Completed [facility] DTAP 2001 00:00:00 Completed [facility] HIB 4 Dose Schedule 2001 00:00:00 Completed [facility] Polio (IPV/OPV) 2001 00:00:00 Completed [facility] DTaP, Unspecified Formulation 2001 00:00:00 Completed [facility] IPV 2001 00:00:00 Completed [facility] DTAP 2001 00:00:00 Completed [facility] HIB 4 Dose Schedule 2001 00:00:00 Completed [facility] Polio (IPV/OPV) 2001 00:00:00 Completed [facility] DTaP, Unspecified Formulation 2001 00:00:00 Completed [facility] IPV 2001 00:00:00 Completed [facility] DTAP 2001 00:00:00 Completed [facility] HIB 4 Dose Schedule 2001 00:00:00 Completed [facility] Polio (IPV/OPV) 2001 00:00:00 Completed [facility] DTaP, Unspecified Formulation 2001 00:00:00 Completed [facility] IPV 2001 00:00:00 Completed [facility] DTAP 2001 00:00:00 Completed [facility] HIB 4 Dose Schedule 2001 00:00:00 Completed [facility] Polio (IPV/OPV) 2001 00:00:00 Completed [facility] DTaP, Unspecified Formulation 2001 00:00:00 Completed [facility] IPV 2001 00:00:00 Completed [facility] DTAP 2001 00:00:00 Completed [facility] HIB 4 Dose Schedule 2001 00:00:00 Completed [facility] Polio (IPV/OPV) 2001 00:00:00 Completed [facility] DTaP, Unspecified Formulation 2001 00:00:00 Completed [facility] IPV 2001 00:00:00 Completed [facility] DTAP 2001 00:00:00 Completed [facility] HIB 4 Dose Schedule 2001 00:00:00 Completed [facility] Polio (IPV/OPV) 2001 00:00:00 Completed [facility] DTaP, Unspecified Formulation 2001 00:00:00 Completed [facility] IPV 2001 00:00:00 Completed [facility] DTAP 2001 00:00:00 Completed HIB 4 Dose Schedule 2001 00:00:00 Completed Polio (IPV/OPV) 2001 00:00:00 Completed DTaP, Unspecified Formulation 2001 00:00:00 Completed IPV 2001 00:00:00 Completed DTAP 2001 00:00:00 Completed HIB 4 Dose Schedule 2001 00:00:00 Completed Polio (IPV/OPV) 2001 00:00:00 Completed DTaP, Unspecified Formulation 2001 00:00:00 Completed IPV 2001 00:00:00 Completed DTAP 2001 00:00:00 Completed HIB 4 Dose Schedule 2001 00:00:00 Completed Polio (IPV/OPV) 2001 00:00:00 Completed DTaP, Unspecified Formulation 2001 00:00:00 Completed IPV 2001 00:00:00 Completed DTAP 2001 00:00:00 Completed HIB 4 Dose Schedule 2001 00:00:00 Completed Polio (IPV/OPV) 2001 00:00:00 Completed DTaP, Unspecified Formulation 2001 00:00:00 Completed IPV 2001 00:00:00 Completed DTAP 2001 00:00:00 Completed HIB 4 Dose Schedule 2001 00:00:00 Completed Polio (IPV/OPV) 2001 00:00:00 Completed DTaP, Unspecified Formulation 2001 00:00:00 Completed IPV 2001 00:00:00 Completed DTAP 2001 00:00:00 Completed [facility] HIB 4 Dose Schedule 2001 00:00:00 Completed [facility] Hep B, Adol or Pedi Dosage 2001 00:00:00 Completed [facility] Polio (IPV/OPV) 2001 00:00:00 Completed [facility] DTAP 2001 00:00:00 Completed [facility] HIB 4 Dose Schedule 2001 00:00:00 Completed [facility] Hep B, Adol or Pedi Dosage 2001 00:00:00 Completed [facility] Polio (IPV/OPV) 2001 00:00:00 Completed [facility] DTAP 2001 00:00:00 Completed [facility] HIB 4 Dose Schedule 2001 00:00:00 Completed [facility] Hep B, Adol or Pedi Dosage 2001 00:00:00 Completed [facility] Polio (IPV/OPV) 2001 00:00:00 Completed [facility] DTAP 2001 00:00:00 Completed [facility] HIB 4 Dose Schedule 2001 00:00:00 Completed [facility] Hep B, Adol or Pedi Dosage 2001 00:00:00 Completed [facility] Polio (IPV/OPV) 2001 00:00:00 Completed [facility] DTAP 2001 00:00:00 Completed [facility] HIB 4 Dose Schedule 2001 00:00:00 Completed [facility] Hep B, Adol or Pedi Dosage 2001 00:00:00 Completed [facility] Polio (IPV/OPV) 2001 00:00:00 Completed [facility] DTAP 2001 00:00:00 Completed [facility] HIB 4 Dose Schedule 2001 00:00:00 Completed [facility] Hep B, Adol or Pedi Dosage 2001 00:00:00 Completed [facility] Polio (IPV/OPV) 2001 00:00:00 Completed [facility] DTAP 2001 00:00:00 Completed [facility] HIB 4 Dose Schedule 2001 00:00:00 Completed [facility] Hep B, Adol or Pedi Dosage 2001 00:00:00 Completed [facility] Polio (IPV/OPV) 2001 00:00:00 Completed [facility] DTAP 2001 00:00:00 Completed [facility] HIB 4 Dose Schedule 2001 00:00:00 Completed [facility] Hep B, Adol or Pedi Dosage 2001 00:00:00 Completed [facility] Polio (IPV/OPV) 2001 00:00:00 Completed [facility] DTAP 2001 00:00:00 Completed [facility] HIB 4 Dose Schedule 2001 00:00:00 Completed [facility] Hep B, Adol or Pedi Dosage 2001 00:00:00 Completed [facility] Polio (IPV/OPV) 2001 00:00:00 Completed [facility] DTAP 2001 00:00:00 Completed [facility] HIB 4 Dose Schedule 2001 00:00:00 Completed [facility] Hep B, Adol or Pedi Dosage 2001 00:00:00 Completed [facility] Polio (IPV/OPV) 2001 00:00:00 Completed [facility] DTaP, Unspecified Formulation 2001 00:00:00 Completed [facility] IPV 2001 00:00:00 Completed [facility] DTAP 2001 00:00:00 Completed [facility] HIB 4 Dose Schedule 2001 00:00:00 Completed [facility] Hep B, Adol or Pedi Dosage 2001 00:00:00 Completed [facility] Polio (IPV/OPV) 2001 00:00:00 Completed [facility] DTaP, Unspecified Formulation 2001 00:00:00 Completed [facility] IPV 2001 00:00:00 Completed [facility] DTAP 2001 00:00:00 Completed [facility] HIB 4 Dose Schedule 2001 00:00:00 Completed [facility] Hep B, Adol or Pedi Dosage 2001 00:00:00 Completed [facility] Polio (IPV/OPV) 2001 00:00:00 Completed [facility] DTaP, Unspecified Formulation 2001 00:00:00 Completed [facility] IPV 2001 00:00:00 Completed [facility] DTAP 2001 00:00:00 Completed [facility] HIB 4 Dose Schedule 2001 00:00:00 Completed [facility] Hep B, Adol or Pedi Dosage 2001 00:00:00 Completed [facility] Polio (IPV/OPV) 2001 00:00:00 Completed [facility] DTaP, Unspecified Formulation 2001 00:00:00 Completed [facility] IPV 2001 00:00:00 Completed [facility] DTAP 2001 00:00:00 Completed [facility] HIB 4 Dose Schedule 2001 00:00:00 Completed [facility] Hep B, Adol or Pedi Dosage 2001 00:00:00 Completed [facility] Polio (IPV/OPV) 2001 00:00:00 Completed [facility] DTaP, Unspecified Formulation 2001 00:00:00 Completed [facility] IPV 2001 00:00:00 Completed [facility] DTAP 2001 00:00:00 Completed [facility] HIB 4 Dose Schedule 2001 00:00:00 Completed [facility] Hep B, Adol or Pedi Dosage 2001 00:00:00 Completed [facility] Polio (IPV/OPV) 2001 00:00:00 Completed [facility] DTaP, Unspecified Formulation 2001 00:00:00 Completed [facility] IPV 2001 00:00:00 Completed [facility] DTAP 2001 00:00:00 Completed [facility] HIB 4 Dose Schedule 2001 00:00:00 Completed [facility] Hep B, Adol or Pedi Dosage 2001 00:00:00 Completed [facility] Polio (IPV/OPV) 2001 00:00:00 Completed [facility] DTaP, Unspecified Formulation 2001 00:00:00 Completed [facility] IPV 2001 00:00:00 Completed [facility] DTAP 2001 00:00:00 Completed [facility] HIB 4 Dose Schedule 2001 00:00:00 Completed [facility] Hep B, Adol or Pedi Dosage 2001 00:00:00 Completed [facility] Polio (IPV/OPV) 2001 00:00:00 Completed [facility] DTaP, Unspecified Formulation 2001 00:00:00 Completed [facility] IPV 2001 00:00:00 Completed [facility] DTAP 2001 00:00:00 Completed [facility] HIB 4 Dose Schedule 2001 00:00:00 Completed [facility] Hep B, Adol or Pedi Dosage 2001 00:00:00 Completed [facility] Polio (IPV/OPV) 2001 00:00:00 Completed [facility] DTaP, Unspecified Formulation 2001 00:00:00 Completed [facility] IPV 2001 00:00:00 Completed [facility] DTAP 2001 00:00:00 Completed [facility] HIB 4 Dose Schedule 2001 00:00:00 Completed [facility] Hep B, Adol or Pedi Dosage 2001 00:00:00 Completed [facility] Polio (IPV/OPV) 2001 00:00:00 Completed [facility] DTaP, Unspecified Formulation 2001 00:00:00 Completed [facility] IPV 2001 00:00:00 Completed [facility] DTAP 2001 00:00:00 Completed [facility] HIB 4 Dose Schedule 2001 00:00:00 Completed [facility] Hep B, Adol or Pedi Dosage 2001 00:00:00 Completed [facility] Polio (IPV/OPV) 2001 00:00:00 Completed [facility] DTaP, Unspecified Formulation 2001 00:00:00 Completed [facility] IPV 2001 00:00:00 Completed [facility] DTAP 2001 00:00:00 Completed [facility] HIB 4 Dose Schedule 2001 00:00:00 Completed [facility] Hep B, Adol or Pedi Dosage 2001 00:00:00 Completed [facility] Polio (IPV/OPV) 2001 00:00:00 Completed [facility] DTaP, Unspecified Formulation 2001 00:00:00 Completed [facility] IPV 2001 00:00:00 Completed [facility] DTAP 2001 00:00:00 Completed HIB 4 Dose Schedule 2001 00:00:00 Completed Hep B, Adol or Pedi Dosage 2001 00:00:00 Completed Polio (IPV/OPV) 2001 00:00:00 Completed DTaP, Unspecified Formulation 2001 00:00:00 Completed IPV 2001 00:00:00 Completed DTAP 2001 00:00:00 Completed HIB 4 Dose Schedule 2001 00:00:00 Completed Hep B, Adol or Pedi Dosage 2001 00:00:00 Completed Polio (IPV/OPV) 2001 00:00:00 Completed DTaP, Unspecified Formulation 2001 00:00:00 Completed IPV 2001 00:00:00 Completed DTAP 2001 00:00:00 Completed HIB 4 Dose Schedule 2001 00:00:00 Completed Hep B, Adol or Pedi Dosage 2001 00:00:00 Completed Polio (IPV/OPV) 2001 00:00:00 Completed DTaP, Unspecified Formulation 2001 00:00:00 Completed IPV 2001 00:00:00 Completed DTAP 2001 00:00:00 Completed HIB 4 Dose Schedule 2001 00:00:00 Completed Hep B, Adol or Pedi Dosage 2001 00:00:00 Completed Polio (IPV/OPV) 2001 00:00:00 Completed DTaP, Unspecified Formulation 2001 00:00:00 Completed IPV 2001 00:00:00 Completed DTAP 2001 00:00:00 Completed HIB 4 Dose Schedule 2001 00:00:00 Completed Hep B, Adol or Pedi Dosage 2001 00:00:00 Completed Polio (IPV/OPV) 2001 00:00:00 Completed DTaP, Unspecified Formulation 2001 00:00:00 Completed IPV 2001 00:00:00 Completed Hep B, Adol or Pedi Dosage 2001 00:00:00 Completed [facility] Hep B, Adol or Pedi Dosage 2001 00:00:00 Completed [facility] Hep B, Adol or Pedi Dosage 2001 00:00:00 Completed [facility] Hep B, Adol or Pedi Dosage 2001 00:00:00 Completed [facility] Hep B, Adol or Pedi Dosage 2001 00:00:00 Completed [facility] Hep B, Adol or Pedi Dosage 2001 00:00:00 Completed [facility] Hep B, Adol or Pedi Dosage 2001 00:00:00 Completed [facility] Hep B, Adol or Pedi Dosage 2001 00:00:00 Completed [facility] Hep B, Adol or Pedi Dosage 2001 00:00:00 Completed [facility] Hep B, Adol or Pedi Dosage 2001 00:00:00 Completed [facility] Hep B, Adol or Pedi Dosage 2001 00:00:00 Completed [facility] Hep B, Adol or Pedi Dosage 2001 00:00:00 Completed [facility] Hep B, Adol or Pedi Dosage 2001 00:00:00 Completed [facility] Hep B, Adol or Pedi Dosage 2001 00:00:00 Completed [facility] Hep B, Adol or Pedi Dosage 2001 00:00:00 Completed [facility] Hep B, Adol or Pedi Dosage 2001 00:00:00 Completed [facility] Hep B, Adol or Pedi Dosage 2001 00:00:00 Completed [facility] Hep B, Adol or Pedi Dosage 2001 00:00:00 Completed [facility] Hep B, Adol or Pedi Dosage 2001 00:00:00 Completed [facility] Hep B, Adol or Pedi Dosage 2001 00:00:00 Completed [facility] Hep B, Adol or Pedi Dosage 2001 00:00:00 Completed [facility] Hep B, Adol or Pedi Dosage 2001 00:00:00 Completed Hep B, Adol or Pedi Dosage 2001 00:00:00 Completed Hep B, Adol or Pedi Dosage 2001 00:00:00 Completed Hep B, Adol or Pedi Dosage 2001 00:00:00 Completed Hep B, Adol or Pedi Dosage 2001 00:00:00 Completed HPV9 Unknown Completed [facility] Influenza Virus Vaccine Quad .5 mL IM 6+ MO (FLUZONE/FLULAVAL/FL UARIX) Unknown Completed [facility] DTAP Unknown Completed [facility] HIB 4 Dose Schedule Unknown Completed [facility] HEPATITIS A Unknown Completed [facility] Hep B, Adol or Pedi Dosage Unknown Completed [facility] HPV Unknown Completed [facility] Influenza Virus Vaccine Unknown Completed [facility] Meningococcal Vaccine Unknown Completed [facility] MMR Unknown Completed [facility] Pneumococcal 13 Conjugate, PCV13 (Prevnar 13) Unknown Completed [facility] Polio (IPV/OPV) Unknown Completed [facility] TDAP Unknown Completed [facility] Varicella (varivax)(chicken pox) Unknown Completed [facility] DTaP, Unspecified Formulation Unknown Completed [facility] Meningococcal Polysaccharide (groups A, C, Y and W-135) conjugate vaccine (MCV4P) Unknown Completed [facility] Pneumococcal 7 Conjugate, PCV7 (Prevnar7) Unknown Completed [facility] IPV Unknown Completed [facility] HPV9 Unknown Completed [facility] Influenza Virus Vaccine Quad .5 mL IM 6+ MO (FLUZONE/FLULAVAL/FL UARIX) Unknown Completed [facility] DTAP Unknown Completed [facility] HIB 4 Dose Schedule Unknown Completed [facility] HEPATITIS A Unknown Completed [facility] Hep B, Adol or Pedi Dosage Unknown Completed [facility] HPV Unknown Completed [facility] Influenza Virus Vaccine Unknown Completed [facility] Meningococcal Vaccine Unknown Completed [facility] MMR Unknown Completed [facility] Pneumococcal 13 Conjugate, PCV13 (Prevnar 13) Unknown Completed [facility] Polio (IPV/OPV) Unknown Completed [facility] TDAP Unknown Completed [facility] Varicella (varivax)(chicken pox) Unknown Completed [facility] DTaP, Unspecified Formulation Unknown Completed [facility] Meningococcal Polysaccharide (groups A, C, Y and W-135) conjugate vaccine (MCV4P) Unknown Completed [facility] Pneumococcal 7 Conjugate, PCV7 (Prevnar7) Unknown Completed [facility] IPV Unknown Completed [facility] HPV9 Unknown Completed [facility] Influenza Virus Vaccine Quad .5 mL IM 6+ MO (FLUZONE/FLULAVAL/FL UARIX) Unknown Completed [facility] DTAP Unknown Completed [facility] HIB 4 Dose Schedule Unknown Completed [facility] HEPATITIS A Unknown Completed [facility] Hep B, Adol or Pedi Dosage Unknown Completed [facility] HPV Unknown Completed [facility] Influenza Virus Vaccine Unknown Completed [facility] Meningococcal Vaccine Unknown Completed [facility] MMR Unknown Completed [facility] Pneumococcal 13 Conjugate, PCV13 (Prevnar 13) Unknown Completed [facility] Polio (IPV/OPV) Unknown Completed [facility] TDAP Unknown Completed [facility] Varicella (varivax)(chicken pox) Unknown Completed [facility] DTaP, Unspecified Formulation Unknown Completed [facility] Meningococcal Polysaccharide (groups A, C, Y and W-135) conjugate vaccine (MCV4P) Unknown Completed [facility] Pneumococcal 7 Conjugate, PCV7 (Prevnar7) Unknown Completed [facility] IPV Unknown Completed [facility] HPV9 Unknown Completed [facility] Influenza Virus Vaccine Quad .5 mL IM 6+ MO (FLUZONE/FLULAVAL/FL UARIX) Unknown Completed [facility] DTAP Unknown Completed [facility] HIB 4 Dose Schedule Unknown Completed [facility] HEPATITIS A Unknown Completed [facility] Hep B, Adol or Pedi Dosage Unknown Completed [facility] HPV Unknown Completed [facility] Influenza Virus Vaccine Unknown Completed [facility] Meningococcal Vaccine Unknown Completed [facility] MMR Unknown Completed [facility] Pneumococcal 13 Conjugate, PCV13 (Prevnar 13) Unknown Completed [facility] Polio (IPV/OPV) Unknown Completed [facility] TDAP Unknown Completed [facility] Varicella (varivax)(chicken pox) Unknown Completed [facility] DTaP, Unspecified Formulation Unknown Completed [facility] Meningococcal Polysaccharide (groups A, C, Y and W-135) conjugate vaccine (MCV4P) Unknown Completed [facility] Pneumococcal 7 Conjugate, PCV7 (Prevnar7) Unknown Completed [facility] IPV Unknown Completed [facility] Influenza Virus Vaccine Quad IM, Preserv and ABX Free 6 MO-64 YRS (FLUCELVAX) Unknown Completed [facility] HPV9 Unknown Completed [facility] Influenza Virus Vaccine Quad .5 mL IM 6+ MO (FLUZONE/FLULAVAL/FL UARIX) Unknown Completed [facility] DTAP Unknown Completed [facility] HIB 4 Dose Schedule Unknown Completed [facility] HEPATITIS A Unknown Completed [facility] Hep B, Adol or Pedi Dosage Unknown Completed [facility] HPV Unknown Completed [facility] Influenza Virus Vaccine Unknown Completed [facility] Meningococcal Vaccine Unknown Completed [facility] MMR Unknown Completed [facility] Pneumococcal 13 Conjugate, PCV13 (Prevnar 13) Unknown Completed [facility] Polio (IPV/OPV) Unknown Completed [facility] TDAP Unknown Completed [facility] Varicella (varivax)(chicken pox) Unknown Completed [facility] DTaP, Unspecified Formulation Unknown Completed [facility] Meningococcal Polysaccharide (groups A, C, Y and W-135) conjugate vaccine (MCV4P) Unknown Completed [facility] Pneumococcal 7 Conjugate, PCV7 (Prevnar7) Unknown Completed [facility] IPV Unknown Completed [facility] [facility] Influenza Virus Vaccine Quad IM, Preserv and ABX Free 6 MO-64 YRS (FLUCELVAX) Unknown Completed [facility] HPV9 Unknown Completed [facility] Influenza Virus Vaccine Quad .5 mL IM 6+ MO (FLUZONE/FLULAVAL/FL UARIX) Unknown Completed [facility] DTAP Unknown Completed [facility] HIB 4 Dose Schedule Unknown Completed [facility] HEPATITIS A Unknown Completed [facility] Hep B, Adol or Pedi Dosage Unknown Completed [facility] HPV Unknown Completed [facility] Influenza Virus Vaccine Unknown Completed [facility] Meningococcal Vaccine Unknown Completed [facility] MMR Unknown Completed [facility] Pneumococcal 13 Conjugate, PCV13 (Prevnar 13) Unknown Completed [facility] Polio (IPV/OPV) Unknown Completed [facility] TDAP Unknown Completed [facility] Varicella (varivax)(chicken pox) Unknown Completed [facility] DTaP, Unspecified Formulation Unknown Completed [facility] Meningococcal Polysaccharide (groups A, C, Y and W-135) conjugate vaccine (MCV4P) Unknown Completed [facility] Pneumococcal 7 Conjugate, PCV7 (Prevnar7) Unknown Completed [facility] IPV Unknown Completed [facility] Influenza Virus Vaccine Quad IM, Preserv and ABX Free 6 MO-64 YRS (FLUCELVAX) Unknown Completed [facility] HPV9 Unknown Completed [facility] Influenza Virus Vaccine Quad .5 mL IM 6+ MO (FLUZONE/FLULAVAL/FL UARIX) Unknown Completed [facility] DTAP Unknown Completed [facility] HIB 4 Dose Schedule Unknown Completed [facility] HEPATITIS A Unknown Completed [facility] Hep B, Adol or Pedi Dosage Unknown Completed [facility] HPV Unknown Completed [facility] Influenza Virus Vaccine Unknown Completed [facility] Meningococcal Vaccine Unknown Completed [facility] MMR Unknown Completed [facility] Pneumococcal 13 Conjugate, PCV13 (Prevnar 13) Unknown Completed [facility] Polio (IPV/OPV) Unknown Completed [facility] TDAP Unknown Completed [facility] Varicella (varivax)(chicken pox) Unknown Completed [facility] DTaP, Unspecified Formulation Unknown Completed [facility] Meningococcal Polysaccharide (groups A, C, Y and W-135) conjugate vaccine (MCV4P) Unknown Completed [facility] Pneumococcal 7 Conjugate, PCV7 (Prevnar7) Unknown Completed [facility] IPV Unknown Completed [facility] Influenza Virus Vaccine Quad IM, Preserv and ABX Free 6 MO-64 YRS (FLUCELVAX) Unknown Completed [facility] HPV9 Unknown Completed [facility] Influenza Virus Vaccine Quad .5 mL IM 6+ MO (FLUZONE/FLULAVAL/FL UARIX) Unknown Completed [facility] DTAP Unknown Completed [facility] HIB 4 Dose Schedule Unknown Completed [facility] HEPATITIS A Unknown Completed [facility] Hep B, Adol or Pedi Dosage Unknown Completed [facility] HPV Unknown Completed [facility] Influenza Virus Vaccine Unknown Completed [facility] Meningococcal Vaccine Unknown Completed [facility] MMR Unknown Completed [facility] Pneumococcal 13 Conjugate, PCV13 (Prevnar 13) Unknown Completed [facility] Polio (IPV/OPV) Unknown Completed [facility] TDAP Unknown Completed [facility] Varicella (varivax)(chicken pox) Unknown Completed [facility] DTaP, Unspecified Formulation Unknown Completed [facility] Meningococcal Polysaccharide (groups A, C, Y and W-135) conjugate vaccine (MCV4P) Unknown Completed [facility] Pneumococcal 7 Conjugate, PCV7 (Prevnar7) Unknown Completed [facility] IPV Unknown Completed [facility] Influenza Virus Vaccine Quad IM, Preserv and ABX Free 6 MO-64 YRS (FLUCELVAX) Unknown Completed [facility] HPV9 Unknown Completed [facility] Influenza Virus Vaccine Quad .5 mL IM 6+ MO (FLUZONE/FLULAVAL/FL UARIX) Unknown Completed [facility] DTAP Unknown Completed [facility] HIB 4 Dose Schedule Unknown Completed [facility] HEPATITIS A Unknown Completed [facility] Hep B, Adol or Pedi Dosage Unknown Completed [facility] HPV Unknown Completed [facility] Influenza Virus Vaccine Unknown Completed [facility] Meningococcal Vaccine Unknown Completed [facility] MMR Unknown Completed [facility] Pneumococcal 13 Conjugate, PCV13 (Prevnar 13) Unknown Completed [facility] Polio (IPV/OPV) Unknown Completed [facility] TDAP Unknown Completed [facility] Varicella (varivax)(chicken pox) Unknown Completed [facility] DTaP, Unspecified Formulation Unknown Completed [facility] Meningococcal Polysaccharide (groups A, C, Y and W-135) conjugate vaccine (MCV4P) Unknown Completed [facility] Pneumococcal 7 Conjugate, PCV7 (Prevnar7) Unknown Completed [facility] IPV Unknown Completed [facility] Influenza Virus Vaccine Quad IM, Preserv and ABX Free 6 MO-64 YRS (FLUCELVAX) Unknown Completed [facility] HPV9 Unknown Completed [facility] Influenza Virus Vaccine Quad .5 mL IM 6+ MO (FLUZONE/FLULAVAL/FL UARIX) Unknown Completed [facility] DTAP Unknown Completed [facility] HIB 4 Dose Schedule Unknown Completed [facility] HEPATITIS A [facility] Hep B, Adol or Pedi Dosage Unknown Completed [facility] HPV Unknown Completed [facility] Influenza Virus Vaccine Unknown Completed [facility] Meningococcal Vaccine Unknown Completed [facility] MMR Unknown Completed [facility] Pneumococcal 13 Conjugate, PCV13 (Prevnar 13) Unknown Completed [facility] Polio (IPV/OPV) Unknown Completed [facility] TDAP Unknown Completed [facility] Varicella (varivax)(chicken pox) Unknown Completed [facility] DTaP, Unspecified Formulation Unknown Completed [facility] Meningococcal Polysaccharide (groups A, C, Y and W-135) conjugate vaccine (MCV4P) Unknown Completed [facility] Pneumococcal 7 Conjugate, PCV7 (Prevnar7) Unknown Completed [facility] IPV Unknown Completed [facility] Influenza Virus Vaccine Quad IM, Preserv and ABX Free 6 MO-64 YRS (FLUCELVAX) Unknown Completed [facility] HPV9 Unknown Completed [facility] Influenza Virus Vaccine Quad .5 mL IM 6+ MO (FLUZONE/FLULAVAL/FL UARIX) Unknown Completed [facility] DTAP Unknown Completed [facility] HIB 4 Dose Schedule Unknown Completed [facility] HEPATITIS A Unknown Completed [facility] Hep B, Adol or Pedi Dosage Unknown Completed [facility] HPV Unknown Completed [facility] Influenza Virus Vaccine Unknown Completed [facility] Meningococcal Vaccine Unknown Completed [facility] MMR Unknown Completed [facility] Pneumococcal 13 Conjugate, PCV13 (Prevnar 13) Unknown Completed [facility] Polio (IPV/OPV) Unknown Completed [facility] TDAP Unknown Completed [facility] Varicella (varivax)(chicken pox) Unknown Completed [facility] DTaP, Unspecified Formulation Unknown Completed [facility] Meningococcal Polysaccharide (groups A, C, Y and W-135) conjugate vaccine (MCV4P) Unknown Completed [facility] Pneumococcal 7 Conjugate, PCV7 (Prevnar7) Unknown Completed [facility] IPV Unknown Completed [facility] Influenza Virus Vaccine Quad IM, Preserv and ABX Free 6 MO-64 YRS (FLUCELVAX) Unknown Completed [facility] HPV9 Unknown Completed [facility] Influenza Virus Vaccine Quad .5 mL IM 6+ MO (FLUZONE/FLULAVAL/FL UARIX) Unknown Completed [facility] DTAP Unknown Completed [facility] HIB 4 Dose Schedule Unknown Completed [facility] HEPATITIS A Unknown Completed [facility] Hep B, Adol or Pedi Dosage Unknown Completed [facility] HPV Unknown Completed [facility] Influenza Virus Vaccine Unknown Completed [facility] Meningococcal Vaccine Unknown Completed [facility] MMR Unknown Completed [facility] Pneumococcal 13 Conjugate, PCV13 (Prevnar 13) Unknown Completed [facility] Polio (IPV/OPV) Unknown Completed [facility] TDAP Unknown Completed [facility] Varicella (varivax)(chicken pox) Unknown Completed [facility] DTaP, Unspecified Formulation Unknown Completed [facility] Meningococcal Polysaccharide (groups A, C, Y and W-135) conjugate vaccine (MCV4P) Unknown Completed [facility] Pneumococcal 7 Conjugate, PCV7 (Prevnar7) Unknown Completed [facility] IPV Unknown Completed [facility] Influenza Virus Vaccine Quad IM, Preserv and ABX Free 6 MO-64 YRS (FLUCELVAX) Unknown Completed [facility] HPV9 Unknown Completed [facility] Influenza Virus Vaccine Quad .5 mL IM 6+ MO (FLUZONE/FLULAVAL/FL UARIX) Unknown Completed [facility] DTAP Unknown Completed [facility] HIB 4 Dose Schedule Unknown Completed [facility] HEPATITIS A Unknown Completed [facility] Hep B, Adol or Pedi Dosage Unknown Completed [facility] HPV Unknown Completed [facility] Influenza Virus Vaccine Unknown Completed [facility] Meningococcal Vaccine Unknown Completed [facility] MMR Unknown Completed [facility] Pneumococcal 13 Conjugate, PCV13 (Prevnar 13) Unknown Completed [facility] Polio (IPV/OPV) Unknown Completed [facility] TDAP Unknown Completed [facility] Varicella (varivax)(chicken pox) Unknown Completed [facility] DTaP, Unspecified Formulation Unknown Completed [facility] Meningococcal Polysaccharide (groups A, C, Y and W-135) conjugate vaccine (MCV4P) Unknown Completed [facility] Pneumococcal 7 Conjugate, PCV7 (Prevnar7) Unknown Completed [facility] IPV Unknown Completed [facility] Influenza Virus Vaccine Quad IM, Preserv and ABX Free 6 MO-64 YRS (FLUCELVAX) Unknown Completed [facility] HPV9 Unknown Completed [facility] Influenza Virus Vaccine Quad .5 mL IM 6+ MO (FLUZONE/FLULAVAL/FL UARIX) Unknown Completed [facility] DTAP Unknown Completed [facility] HIB 4 Dose Schedule Unknown Completed [facility] HEPATITIS A Unknown Completed [facility] Hep B, Adol or Pedi Dosage Unknown Completed [facility] HPV Unknown Completed [facility] Influenza Virus Vaccine Unknown Completed [facility] Meningococcal Vaccine Unknown Completed [facility] MMR Unknown Completed [facility] Pneumococcal 13 Conjugate, PCV13 (Prevnar 13) Unknown Completed [facility] Polio (IPV/OPV) Unknown Completed [facility] TDAP Unknown Completed [facility] Varicella (varivax)(chicken pox) Unknown Completed [facility] DTaP, Unspecified Formulation Unknown Completed [facility] Meningococcal Polysaccharide (groups A, C, Y and W-135) conjugate vaccine (MCV4P) Unknown Completed [facility] Pneumococcal 7 Conjugate, PCV7 (Prevnar7) Unknown Completed [facility] IPV Unknown Completed [facility] Influenza Virus Vaccine Quad IM, Preserv and ABX Free 6 MO-64 YRS (FLUCELVAX) Unknown Completed [facility] HPV9 Unknown Completed [facility] Influenza Virus Vaccine Quad .5 mL IM 6+ MO (FLUZONE/FLULAVAL/FL UARIX) Unknown Completed [facility] DTAP Unknown Completed [facility] HIB 4 Dose Schedule Unknown Completed [facility] HEPATITIS A Unknown Completed [facility] Hep B, Adol or Pedi Dosage Unknown Completed [facility] HPV Unknown Completed [facility] Influenza Virus Vaccine Unknown Completed [facility] Meningococcal Vaccine Unknown Completed [facility] MMR Unknown Completed [facility] Pneumococcal 13 Conjugate, PCV13 (Prevnar 13) Unknown Completed [facility] Polio (IPV/OPV) Unknown Completed [facility] TDAP Unknown Completed [facility] Varicella (varivax)(chicken pox) Unknown Completed [facility] DTaP, Unspecified Formulation Unknown Completed [facility] Meningococcal Polysaccharide (groups A, C, Y and W-135) conjugate vaccine (MCV4P) Unknown Completed [facility] Pneumococcal 7 Conjugate, PCV7 (Prevnar7) Unknown Completed [facility] IPV Unknown Completed [facility] Influenza Virus Vaccine Quad IM, Preserv and ABX Free 6 MO-64 YRS (FLUCELVAX) Unknown Completed [facility] HPV9 Unknown Completed [facility] Influenza Virus Vaccine Quad .5 mL IM 6+ MO (FLUZONE/FLULAVAL/FL UARIX) Unknown Completed [facility] DTAP Unknown Completed [facility] HIB 4 Dose Schedule Unknown Completed [facility] HEPATITIS A Unknown Completed [facility] Hep B, Adol or Pedi Dosage Unknown Completed [facility] HPV Unknown Completed [facility] Influenza Virus Vaccine Unknown Completed [facility] Meningococcal Vaccine Unknown Completed [facility] MMR Unknown Completed [facility] Pneumococcal 13 Conjugate, PCV13 (Prevnar 13) Unknown Completed [facility] Polio (IPV/OPV) Unknown Completed [facility] TDAP Unknown Completed [facility] Varicella (varivax)(chicken pox) Unknown Completed [facility] DTaP, Unspecified Formulation Unknown Completed [facility] Meningococcal Polysaccharide (groups A, C, Y and W-135) conjugate vaccine (MCV4P) Unknown Completed [facility] Pneumococcal 7 Conjugate, PCV7 (Prevnar7) Unknown Completed [facility] IPV Unknown Completed [facility] Influenza Virus Vaccine Quad IM, Preserv and ABX Free 6 MO-64 YRS (FLUCELVAX) Unknown Completed [facility] HPV9 Unknown Completed [facility] Influenza Virus Vaccine Quad .5 mL IM 6+ MO (FLUZONE/FLULAVAL/FL UARIX) Unknown Completed [facility] DTAP Unknown Completed [facility] HIB 4 Dose Schedule Unknown Completed [facility] HEPATITIS A Unknown Completed [facility] Hep B, Adol or Pedi Dosage Unknown Completed [facility] HPV Unknown Completed [facility] Influenza Virus Vaccine Unknown Completed [facility] Meningococcal Vaccine Unknown Completed [facility] MMR Unknown Completed [facility] Pneumococcal 13 Conjugate, PCV13 (Prevnar 13) Unknown Completed [facility] Polio (IPV/OPV) Unknown Completed [facility] TDAP Unknown Completed [facility] Varicella (varivax)(chicken pox) Unknown Completed [facility] DTaP, Unspecified Formulation Unknown Completed [facility] Meningococcal Polysaccharide (groups A, C, Y and W-135) conjugate vaccine (MCV4P) Unknown Completed [facility] Pneumococcal 7 Conjugate, PCV7 (Prevnar7) Unknown Completed [facility] IPV Unknown Completed [facility] Influenza Virus Vaccine Quad IM, Preserv and ABX Free 6 MO-64 YRS (FLUCELVAX) Unknown Completed [facility] HPV9 Unknown Completed [facility] Influenza Virus Vaccine Quad .5 mL IM 6+ MO (FLUZONE/FLULAVAL/FL UARIX) Unknown Completed [facility] DTAP Unknown Completed [facility] HIB 4 Dose Schedule Unknown Completed [facility] HEPATITIS A Unknown Completed [facility] Hep B, Adol or Pedi Dosage Unknown Completed [facility] HPV Unknown Completed [facility] Influenza Virus Vaccine Unknown Completed [facility] Meningococcal Vaccine Unknown Completed [facility] MMR Unknown Completed [facility] Pneumococcal 13 Conjugate, PCV13 (Prevnar 13) Unknown Completed [facility] Polio (IPV/OPV) Unknown Completed [facility] TDAP Unknown Completed [facility] Varicella (varivax)(chicken pox) Unknown Completed [facility] DTaP, Unspecified Formulation Unknown Completed [facility] Meningococcal Polysaccharide (groups A, C, Y and W-135) conjugate vaccine (MCV4P) Unknown Completed [facility] Pneumococcal 7 Conjugate, PCV7 (Prevnar7) Unknown Completed [facility] IPV Unknown Completed [facility] Influenza Virus Vaccine Quad IM, Preserv and ABX Free 6 MO-64 YRS (FLUCELVAX) Unknown Completed [facility] HPV9 Unknown Completed [facility] Influenza Virus Vaccine Quad .5 mL IM 6+ MO (FLUZONE/FLULAVAL/FL UARIX) Unknown Completed [facility] DTAP Unknown Completed [facility] HIB 4 Dose Schedule Unknown Completed [facility] HEPATITIS A Unknown Completed [facility] Hep B, Adol or Pedi Dosage Unknown Completed [facility] HPV Unknown Completed [facility] Influenza Virus Vaccine Unknown Completed [facility] Meningococcal Vaccine Unknown Completed [facility] MMR Unknown Completed [facility] Pneumococcal 13 Conjugate, PCV13 (Prevnar 13) Unknown Completed [facility] Polio (IPV/OPV) Unknown Completed [facility] TDAP Unknown Completed [facility] Varicella (varivax)(chicken pox) Unknown Completed [facility] DTaP, Unspecified Formulation Unknown Completed [facility] Meningococcal Polysaccharide (groups A, C, Y and W-135) conjugate vaccine (MCV4P) Unknown Completed [facility] Pneumococcal 7 Conjugate, PCV7 (Prevnar7) Unknown Completed [facility] IPV Unknown Completed [facility] Influenza Virus Vaccine Quad IM, Preserv and ABX Free 6 MO-64 YRS (FLUCELVAX) Unknown Completed [facility] HPV9 Unknown Completed [facility] Influenza Virus Vaccine Quad .5 mL IM 6+ MO (FLUZONE/FLULAVAL/FL UARIX) Unknown Completed [facility] DTAP Unknown Completed [facility] HIB 4 Dose Schedule Unknown Completed [facility] HEPATITIS A Unknown Completed [facility] Hep B, Adol or Pedi Dosage Unknown Completed [facility] HPV Unknown Completed [facility] Influenza Virus Vaccine Unknown Completed [facility] Meningococcal Vaccine Unknown Completed [facility] MMR Unknown Completed [facility] Pneumococcal 13 Conjugate, PCV13 (Prevnar 13) Unknown Completed [facility] Polio (IPV/OPV) Unknown Completed [facility] TDAP Unknown Completed [facility] Varicella (varivax)(chicken pox) Unknown Completed [facility] DTaP, Unspecified Formulation Unknown Completed [facility] Meningococcal Polysaccharide (groups A, C, Y and W-135) conjugate vaccine (MCV4P) Unknown Completed [facility] Pneumococcal 7 Conjugate, PCV7 (Prevnar7) Unknown Completed [facility] IPV Unknown Completed [facility] Influenza Virus Vaccine Quad IM, Preserv and ABX Free 6 MO-64 YRS (FLUCELVAX) Unknown Completed [facility] HPV9 Unknown Completed [facility] Influenza Virus Vaccine Quad .5 mL IM 6+ MO (FLUZONE/FLULAVAL/FL UARIX) Unknown Completed [facility] DTAP Unknown Completed [facility] HIB 4 Dose Schedule Unknown Completed [facility] HEPATITIS A Unknown Completed [facility] Hep B, Adol or Pedi Dosage Unknown Completed [facility] HPV Unknown Completed [facility] Influenza Virus Vaccine Unknown Completed [facility] Meningococcal Vaccine Unknown Completed [facility] MMR Unknown Completed [facility] Pneumococcal 13 Conjugate, PCV13 (Prevnar 13) Unknown Completed [facility] Polio (IPV/OPV) Unknown Completed [facility] TDAP Unknown Completed [facility] Varicella (varivax)(chicken pox) Unknown Completed [facility] DTaP, Unspecified Formulation Unknown Completed [facility] Meningococcal Polysaccharide (groups A, C, Y and W-135) conjugate vaccine (MCV4P) Unknown Completed [facility] Pneumococcal 7 Conjugate, PCV7 (Prevnar7) Unknown Completed [facility] IPV Unknown Completed [facility] Influenza Virus Vaccine Quad IM, Preserv and ABX Free 6 MO-64 YRS (FLUCELVAX) Unknown Completed [facility] HPV9 Unknown Completed [facility] Influenza Virus Vaccine Quad .5 mL IM 6+ MO (FLUZONE/FLULAVAL/FL UARIX) Unknown Completed [facility] DTAP Unknown Completed [facility] HIB 4 Dose Schedule Unknown Completed [facility] HEPATITIS A Unknown Completed [facility] Hep B, Adol or Pedi Dosage Unknown Completed [facility] HPV Unknown Completed [facility] Influenza Virus Vaccine Unknown Completed [facility] Meningococcal Vaccine Unknown Completed [facility] MMR Unknown Completed [facility] Pneumococcal 13 Conjugate, PCV13 (Prevnar 13) Unknown Completed [facility] Polio (IPV/OPV) Unknown Completed [facility] TDAP Unknown Completed [facility] Varicella (varivax)(chicken pox) Unknown Completed [facility] DTaP, Unspecified Formulation Unknown Completed [facility] Meningococcal Polysaccharide (groups A, C, Y and W-135) conjugate vaccine (MCV4P) Unknown Completed [facility] Pneumococcal 7 Conjugate, PCV7 (Prevnar7) Unknown Completed [facility] IPV Unknown Completed [facility] Influenza Virus Vaccine Quad IM, Preserv and ABX Free 6 MO-64 YRS (FLUCELVAX) Unknown Completed [facility] Influenza Virus Vaccine Unknown Completed [facility] [facility] Meningococcal Vaccine Unknown Completed [facility] Meningococcal Polysaccharide (groups A, C, Y and W-135) conjugate vaccine (MCV4P) Unknown Completed [facility] Influenza Virus Vaccine Quad IM, Preserv and ABX Free 6 MO-64 YRS (FLUCELVAX) Unknown Completed [facility] HPV9 Unknown Completed [facility] Influenza Virus Vaccine Quad .5 mL IM 6+ MO (FLUZONE/FLULAVAL/FL UARIX) Unknown Completed [facility] DTAP Unknown Completed [facility] HIB 4 Dose Schedule Unknown Completed [facility] HEPATITIS A Unknown Completed [facility] Hep B, Adol or Pedi Dosage Unknown Completed [facility] HPV Unknown Completed [facility] MMR Unknown Completed [facility] Pneumococcal 13 Conjugate, PCV13 (Prevnar 13) Unknown Completed [facility] Polio (IPV/OPV) Unknown Completed [facility] TDAP Unknown Completed [facility] Varicella (varivax)(chicken pox) Unknown Completed [facility] DTaP, Unspecified Formulation Unknown Completed [facility] Pneumococcal 7 Conjugate, PCV7 (Prevnar7) Unknown Completed [facility] IPV Unknown Completed [facility] HPV9 Unknown Completed [facility] Influenza Virus Vaccine Quad .5 mL IM 6+ MO (FLUZONE/FLULAVAL/FL UARIX) Unknown Completed [facility] DTAP Unknown Completed [facility] HIB 4 Dose Schedule Unknown Completed [facility] HEPATITIS A Unknown Completed [facility] Hep B, Adol or Pedi Dosage Unknown Completed [facility] HPV Unknown Completed [facility] Influenza Virus Vaccine Unknown Completed [facility] Meningococcal Vaccine Unknown Completed [facility] MMR Unknown Completed [facility] Pneumococcal 13 Conjugate, PCV13 (Prevnar 13) Unknown Completed [facility] Polio (IPV/OPV) Unknown Completed [facility] TDAP Unknown Completed [facility] Varicella (varivax)(chicken pox) Unknown Completed [facility] DTaP, Unspecified Formulation Unknown Completed [facility] Meningococcal Polysaccharide (groups A, C, Y and W-135) conjugate vaccine (MCV4P) Unknown Completed [facility] Pneumococcal 7 Conjugate, PCV7 (Prevnar7) Unknown Completed [facility] IPV Unknown Completed [facility] Influenza Virus Vaccine Quad IM, Preserv and ABX Free 6 MO-64 YRS (FLUCELVAX) Unknown Completed [facility] HPV9 Unknown Completed [facility] Influenza Virus Vaccine Quad .5 mL IM 6+ MO (FLUZONE/FLULAVAL/FL UARIX) Unknown Completed [facility] DTAP Unknown Completed [facility] HIB 4 Dose Schedule Unknown Completed [facility] HEPATITIS A Unknown Completed [facility] Hep B, Adol or Pedi Dosage Unknown Completed [facility] HPV Unknown Completed [facility] Influenza Virus Vaccine Unknown Completed [facility] Meningococcal Vaccine Unknown Completed [facility] MMR Unknown Completed [facility] Pneumococcal 13 Conjugate, PCV13 (Prevnar 13) Unknown Completed [facility] Polio (IPV/OPV) Unknown Completed [facility] TDAP Unknown Completed [facility] Varicella (varivax)(chicken pox) Unknown Completed [facility] DTaP, Unspecified Formulation Unknown Completed [facility] Meningococcal Polysaccharide (groups A, C, Y and W-135) conjugate vaccine (MCV4P) Unknown Completed [facility] Pneumococcal 7 Conjugate, PCV7 (Prevnar7) Unknown Completed [facility] IPV Unknown Completed [facility] Influenza Virus Vaccine Quad IM, Preserv and ABX Free 6 MO-64 YRS (FLUCELVAX) Unknown Completed [facility] HPV9 Unknown Completed [facility] Influenza Virus Vaccine Quad .5 mL IM 6+ MO (FLUZONE/FLULAVAL/FL UARIX) Unknown Completed [facility] DTAP Unknown Completed [facility] HIB 4 Dose Schedule Unknown Completed [facility] HEPATITIS A Unknown Completed [facility] Hep B, Adol or Pedi Dosage Unknown Completed [facility] HPV Unknown Completed [facility] Influenza Virus Vaccine Unknown Completed [facility] Meningococcal Vaccine Unknown Completed [facility] MMR Unknown Completed [facility] Pneumococcal 13 Conjugate, PCV13 (Prevnar 13) Unknown Completed [facility] Polio (IPV/OPV) Unknown Completed [facility] TDAP Unknown Completed [facility] Varicella (varivax)(chicken pox) Unknown Completed [facility] DTaP, Unspecified Formulation Unknown Completed [facility] Meningococcal Polysaccharide (groups A, C, Y and W-135) conjugate vaccine (MCV4P) Unknown Completed [facility] Pneumococcal 7 Conjugate, PCV7 (Prevnar7) Unknown Completed [facility] IPV Unknown Completed [facility] Influenza Virus Vaccine Quad IM, Preserv and ABX Free 6 MO-64 YRS (FLUCELVAX) Unknown Completed [facility] HPV9 Unknown Completed [facility] Influenza Virus Vaccine Quad .5 mL IM 6+ MO (FLUZONE/FLULAVAL/FL UARIX) Unknown Completed [facility] DTAP Unknown Completed [facility] HIB 4 Dose Schedule Unknown Completed [facility] HEPATITIS A Unknown Completed [facility] Hep B, Adol or Pedi Dosage Unknown Completed [facility] HPV Unknown Completed [facility] Influenza Virus Vaccine Unknown Completed [facility] Meningococcal Vaccine Unknown Completed [facility] MMR Unknown Completed [facility] Pneumococcal 13 Conjugate, PCV13 (Prevnar 13) Unknown Completed [facility] Polio (IPV/OPV) Unknown Completed [facility] TDAP Unknown Completed [facility] Varicella (varivax)(chicken pox) Unknown Completed [facility] DTaP, Unspecified Formulation Unknown Completed [facility] Meningococcal Polysaccharide (groups A, C, Y and W-135) conjugate vaccine (MCV4P) Unknown Completed [facility] Pneumococcal 7 Conjugate, PCV7 (Prevnar7) Unknown Completed [facility] IPV Unknown Completed [facility] Influenza Virus Vaccine Quad IM, Preserv and ABX Free 6 MO-64 YRS (FLUCELVAX) Unknown Completed [facility] HPV9 Unknown Completed [facility] Influenza Virus Vaccine Quad .5 mL IM 6+ MO (FLUZONE/FLULAVAL/FL UARIX) Unknown Completed [facility] DTAP Unknown Completed [facility] HIB 4 Dose Schedule Unknown Completed [facility] HEPATITIS A Unknown Completed [facility] Hep B, Adol or Pedi Dosage Unknown Completed [facility] HPV Unknown Completed [facility] Influenza Virus Vaccine Unknown Completed [facility] Meningococcal Vaccine Unknown Completed [facility] MMR Unknown Completed [facility] Pneumococcal 13 Conjugate, PCV13 (Prevnar 13) Unknown Completed [facility] Polio (IPV/OPV) Unknown Completed [facility] TDAP Unknown Completed [facility] Varicella (varivax)(chicken pox) Unknown Completed [facility] DTaP, Unspecified Formulation Unknown Completed [facility] Meningococcal Polysaccharide (groups A, C, Y and W-135) conjugate vaccine (MCV4P) Unknown Completed [facility] Pneumococcal 7 Conjugate, PCV7 (Prevnar7) Unknown Completed [facility] IPV Unknown Completed [facility] Influenza Virus Vaccine Quad IM, Preserv and ABX Free 6 MO-64 YRS (FLUCELVAX) Unknown Completed [facility] HPV9 Unknown Completed [facility] Influenza Virus Vaccine Quad .5 mL IM 6+ MO (FLUZONE/FLULAVAL/FL UARIX) Unknown Completed [facility] DTAP Unknown Completed [facility] HIB 4 Dose Schedule Unknown Completed [facility] HEPATITIS A Unknown Completed [facility] Hep B, Adol or Pedi Dosage Unknown Completed [facility] HPV Unknown Completed [facility] Influenza Virus Vaccine Unknown Completed [facility] Meningococcal Vaccine Unknown Completed [facility] MMR Unknown Completed [facility] Pneumococcal 13 Conjugate, PCV13 (Prevnar 13) Unknown Completed [facility] Polio (IPV/OPV) Unknown Completed [facility] TDAP Unknown Completed [facility] Varicella (varivax)(chicken pox) Unknown Completed [facility] DTaP, Unspecified Formulation Unknown Completed [facility] Meningococcal Polysaccharide (groups A, C, Y and W-135) conjugate vaccine (MCV4P) Unknown Completed [facility] Pneumococcal 7 Conjugate, PCV7 (Prevnar7) Unknown Completed [facility] IPV Unknown Completed [facility] Influenza Virus Vaccine Quad IM, Preserv and ABX Free 6 MO-64 YRS (FLUCELVAX) Unknown Completed [facility] HPV9 Unknown Completed [facility] DTAP Unknown Completed [facility] HIB 4 Dose Schedule Unknown Completed [facility] HEPATITIS A Unknown Completed [facility] Hep B, Adol or Pedi Dosage Unknown Completed [facility] HPV Unknown Completed [facility] Influenza Virus Vaccine Unknown Completed [facility] Meningococcal Vaccine Unknown Completed [facility] MMR Unknown Completed [facility] Pneumococcal 13 Conjugate, PCV13 (Prevnar 13) Unknown Completed [facility] Polio (IPV/OPV) Unknown Completed [facility] TDAP Unknown Completed [facility] Varicella (varivax)(chicken pox) Unknown Completed [facility] DTaP, Unspecified Formulation Unknown Completed [facility] Influenza Virus Vaccine Quad .5 mL IM 6+ MO (FLUZONE/FLULAVAL/FL UARIX) Unknown Completed [facility] Meningococcal Polysaccharide (groups A, C, Y and W-135) conjugate vaccine (MCV4P) Unknown Completed [facility] Pneumococcal 7 Conjugate, PCV7 (Prevnar7) Unknown Completed [facility] IPV Unknown Completed [facility] Influenza Virus Vaccine Quad IM, Preserv and ABX Free 6 MO-64 YRS (FLUCELVAX) Unknown Completed [facility] HPV9 Unknown Completed [facility] Influenza Virus Vaccine Quad .5 mL IM 6+ MO (FLUZONE/FLULAVAL/FL UARIX) Unknown Completed [facility] DTAP Unknown Completed [facility] HIB 4 Dose Schedule Unknown Completed [facility] HEPATITIS A Unknown Completed [facility] Hep B, Adol or Pedi Dosage Unknown Completed [facility] HPV Unknown Completed [facility] Influenza Virus Vaccine Unknown Completed [facility] Meningococcal Vaccine Unknown Completed [facility] MMR Unknown Completed [facility] Pneumococcal 13 Conjugate, PCV13 (Prevnar 13) Unknown Completed [facility] Polio (IPV/OPV) Unknown Completed [facility] TDAP Unknown Completed [facility] Varicella (varivax)(chicken pox) Unknown Completed [facility] DTaP, Unspecified Formulation Unknown Completed [facility] Meningococcal Polysaccharide (groups A, C, Y and W-135) conjugate vaccine (MCV4P) Unknown Completed [facility] Pneumococcal 7 Conjugate, PCV7 (Prevnar7) Unknown Completed [facility] IPV Unknown Completed [facility] Influenza Virus Vaccine Quad IM, Preserv and ABX Free 6 MO-64 YRS (FLUCELVAX) Unknown Completed [facility] HPV9 Unknown Completed [facility] Influenza Virus Vaccine Quad .5 mL IM 6+ MO (FLUZONE/FLULAVAL/FL UARIX) Unknown Completed [facility] DTAP Unknown Completed [facility] HIB 4 Dose Schedule Unknown Completed [facility] HEPATITIS A Unknown Completed [facility] Hep B, Adol or Pedi Dosage Unknown Completed [facility] HPV Unknown Completed [facility] Influenza Virus Vaccine Unknown Completed [facility] Meningococcal Vaccine Unknown Completed [facility] MMR Unknown Completed [facility] Pneumococcal 13 Conjugate, PCV13 (Prevnar 13) Unknown Completed [facility] Polio (IPV/OPV) Unknown Completed [facility] TDAP Unknown Completed [facility] Varicella (varivax)(chicken pox) Unknown Completed [facility] DTaP, Unspecified Formulation Unknown Completed [facility] Meningococcal Polysaccharide (groups A, C, Y and W-135) conjugate vaccine (MCV4P) Unknown Completed [facility] Pneumococcal 7 Conjugate, PCV7 (Prevnar7) Unknown Completed [facility] IPV Unknown Completed [facility] Influenza Virus Vaccine Quad IM, Preserv and ABX Free 6 MO-64 YRS (FLUCELVAX) Unknown Completed [facility] HPV9 Unknown Completed [facility] Influenza Virus Vaccine Quad .5 mL IM 6+ MO (FLUZONE/FLULAVAL/FL UARIX) Unknown Completed [facility] DTAP Unknown Completed [facility] HIB 4 Dose Schedule Unknown Completed [facility] HEPATITIS A Unknown Completed [facility] Hep B, Adol or Pedi Dosage Unknown Completed [facility] HPV Unknown Completed [facility] Influenza Virus Vaccine Unknown Completed [facility] Meningococcal Vaccine Unknown Completed [facility] MMR Unknown Completed [facility] Pneumococcal 13 Conjugate, PCV13 (Prevnar 13) Unknown Completed [facility] Polio (IPV/OPV) Unknown Completed [facility] TDAP Unknown Completed [facility] Varicella (varivax)(chicken pox) Unknown Completed [facility] DTaP, Unspecified Formulation Unknown Completed [facility] Meningococcal Polysaccharide (groups A, C, Y and W-135) conjugate vaccine (MCV4P) Unknown Completed [facility] Pneumococcal 7 Conjugate, PCV7 (Prevnar7) Unknown Completed [facility] IPV Unknown Completed [facility] Influenza Virus Vaccine Quad IM, Preserv and ABX Free 6 MO-64 YRS (FLUCELVAX) Unknown Completed [facility] HPV9 Unknown Completed [facility] Influenza Virus Vaccine Quad .5 mL IM 6+ MO (FLUZONE/FLULAVAL/FL UARIX) Unknown Completed [facility] DTAP Unknown Completed [facility] HIB 4 Dose Schedule Unknown Completed [facility] HEPATITIS A Unknown Completed [facility] Hep B, Adol or Pedi Dosage Unknown Completed [facility] HPV Unknown Completed [facility] Influenza Virus Vaccine Unknown Completed [facility] Meningococcal Vaccine Unknown Completed [facility] MMR Unknown Completed [facility] Pneumococcal 13 Conjugate, PCV13 (Prevnar 13) Unknown Completed [facility] Polio (IPV/OPV) Unknown Completed [facility] TDAP Unknown Completed [facility] Varicella (varivax)(chicken pox) Unknown Completed [facility] DTaP, Unspecified Formulation Unknown Completed [facility] Meningococcal Polysaccharide (groups A, C, Y and W-135) conjugate vaccine (MCV4P) Unknown Completed [facility] Pneumococcal 7 Conjugate, PCV7 (Prevnar7) Unknown Completed [facility] IPV Unknown Completed [facility] Influenza Virus Vaccine Quad IM, Preserv and ABX Free 6 MO-64 YRS (FLUCELVAX) Unknown Completed [facility] HPV9 Unknown Completed [facility] Influenza Virus Vaccine Quad .5 mL IM 6+ MO (FLUZONE/FLULAVAL/FL UARIX) Unknown Completed [facility] DTAP Unknown Completed [facility] HIB 4 Dose Schedule Unknown Completed [facility] HEPATITIS A Unknown Completed [facility] Hep B, Adol or Pedi Dosage Unknown Completed [facility] HPV Unknown Completed [facility] Influenza Virus Vaccine Unknown Completed [facility] Meningococcal Vaccine Unknown Completed [facility] MMR Unknown Completed [facility] Pneumococcal 13 Conjugate, PCV13 (Prevnar 13) Unknown Completed [facility] Polio (IPV/OPV) Unknown Completed [facility] TDAP Unknown Completed [facility] Varicella (varivax)(chicken pox) Unknown Completed [facility] DTaP, Unspecified Formulation Unknown Completed [facility] Meningococcal Polysaccharide (groups A, C, Y and W-135) conjugate vaccine (MCV4P) Unknown Completed [facility] Pneumococcal 7 Conjugate, PCV7 (Prevnar7) Unknown Completed [facility] IPV Unknown Completed [facility] Influenza Virus Vaccine Quad IM, Preserv and ABX Free 6 MO-64 YRS (FLUCELVAX) Unknown Completed [facility] HPV9 Unknown Completed [facility] Influenza Virus Vaccine Quad .5 mL IM 6+ MO (FLUZONE/FLULAVAL/FL UARIX) Unknown Completed [facility] DTAP Unknown Completed [facility] HIB 4 Dose Schedule Unknown Completed [facility] HEPATITIS A Unknown Completed [facility] Hep B, Adol or Pedi Dosage Unknown Completed [facility] HPV Unknown Completed [facility] Influenza Virus Vaccine Unknown Completed [facility] Meningococcal Vaccine Unknown Completed [facility] MMR Unknown Completed [facility] Pneumococcal 13 Conjugate, PCV13 (Prevnar 13) Unknown Completed [facility] Polio (IPV/OPV) Unknown Completed [facility] TDAP Unknown Completed [facility] Varicella (varivax)(chicken pox) Unknown Completed [facility] DTaP, Unspecified Formulation Unknown Completed [facility] Meningococcal Polysaccharide (groups A, C, Y and W-135) conjugate vaccine (MCV4P) Unknown Completed [facility] Pneumococcal 7 Conjugate, PCV7 (Prevnar7) Unknown Completed [facility] IPV Unknown Completed [facility] Influenza Virus Vaccine Quad IM, Preserv and ABX Free 6 MO-64 YRS (FLUCELVAX) Unknown Completed [facility] HPV9 Unknown Completed [facility] Influenza Virus Vaccine Quad .5 mL IM 6+ MO (FLUZONE/FLULAVAL/FL UARIX) Unknown Completed [facility] DTAP Unknown Completed [facility] HIB 4 Dose Schedule Unknown Completed [facility] HEPATITIS A Unknown Completed [facility] Hep B, Adol or Pedi Dosage Unknown Completed [facility] HPV Unknown Completed [facility] Influenza Virus Vaccine Unknown Completed [facility] Meningococcal Vaccine Unknown Completed [facility] MMR Unknown Completed [facility] Pneumococcal 13 Conjugate, PCV13 (Prevnar 13) Unknown Completed [facility] Polio (IPV/OPV) Unknown Completed [facility] TDAP Unknown Completed [facility] Varicella (varivax)(chicken pox) Unknown Completed [facility] DTaP, Unspecified Formulation Unknown Completed [facility] Meningococcal Polysaccharide (groups A, C, Y and W-135) conjugate vaccine (MCV4P) Unknown Completed [facility] Pneumococcal 7 Conjugate, PCV7 (Prevnar7) Unknown Completed [facility] IPV Unknown Completed [facility] Influenza Virus Vaccine Quad IM, Preserv and ABX Free 6 MO-64 YRS (FLUCELVAX) Unknown Completed [facility] HPV9 Unknown Completed [facility] Influenza Virus Vaccine Quad .5 mL IM 6+ MO (FLUZONE/FLULAVAL/FL UARIX) Unknown Completed [facility] DTAP Unknown Completed [facility] HIB 4 Dose Schedule Unknown Completed [facility] HEPATITIS A Unknown Completed [facility] Hep B, Adol or Pedi Dosage Unknown Completed [facility] HPV Unknown Completed [facility] Influenza Virus Vaccine Unknown Completed [facility] Meningococcal Vaccine Unknown Completed [facility] MMR Unknown Completed [facility] Pneumococcal 13 Conjugate, PCV13 (Prevnar 13) Unknown Completed [facility] Polio (IPV/OPV) Unknown Completed [facility] TDAP Unknown Completed [facility] Varicella (varivax)(chicken pox) Unknown Completed [facility] DTaP, Unspecified Formulation Unknown Completed [facility] Meningococcal Polysaccharide (groups A, C, Y and W-135) conjugate vaccine (MCV4P) Unknown Completed [facility] Pneumococcal 7 Conjugate, PCV7 (Prevnar7) Unknown Completed [facility] IPV Unknown Completed [facility] Influenza Virus Vaccine Quad IM, Preserv and ABX Free 6 MO-64 YRS (FLUCELVAX) Unknown Completed [facility] HPV9 Unknown Completed [facility] Influenza Virus Vaccine Quad .5 mL IM 6+ MO (FLUZONE/FLULAVAL/FL UARIX) Unknown Completed [facility] DTAP Unknown Completed [facility] HIB 4 Dose Schedule Unknown Completed [facility] HEPATITIS A Unknown Completed [facility] Hep B, Adol or Pedi Dosage Unknown Completed [facility] HPV Unknown Completed [facility] Influenza Virus Vaccine Unknown Completed [facility] Meningococcal Vaccine Unknown Completed [facility] MMR Unknown Completed [facility] Pneumococcal 13 Conjugate, PCV13 (Prevnar 13) Unknown Completed [facility] Polio (IPV/OPV) Unknown Completed [facility] TDAP Unknown Completed [facility] Varicella (varivax)(chicken pox) Unknown Completed [facility] DTaP, Unspecified Formulation Unknown Completed [facility] Meningococcal Polysaccharide (groups A, C, Y and W-135) conjugate vaccine (MCV4P) Unknown Completed [facility] Pneumococcal 7 Conjugate, PCV7 (Prevnar7) Unknown Completed [facility] IPV Unknown Completed [facility] Influenza Virus Vaccine Quad IM, Preserv and ABX Free 6 MO-64 YRS (FLUCELVAX) Unknown Completed [facility] HPV9 Unknown Completed [facility] Influenza Virus Vaccine Quad .5 mL IM 6+ MO (FLUZONE/FLULAVAL/FL UARIX) Unknown Completed [facility] DTAP Unknown Completed [facility] HIB 4 Dose Schedule Unknown Completed [facility] HEPATITIS A Unknown Completed [facility] Hep B, Adol or Pedi Dosage Unknown Completed [facility] HPV Unknown Completed [facility] Influenza Virus Vaccine Unknown Completed [facility] Meningococcal Vaccine Unknown Completed [facility] MMR Unknown Completed [facility] Pneumococcal 13 Conjugate, PCV13 (Prevnar 13) Unknown Completed [facility] Polio (IPV/OPV) Unknown Completed [facility] TDAP Unknown Completed [facility] Varicella (varivax)(chicken pox) Unknown Completed [facility] DTaP, Unspecified Formulation Unknown Completed [facility] Meningococcal Polysaccharide (groups A, C, Y and W-135) conjugate vaccine (MCV4P) Unknown Completed [facility] Pneumococcal 7 Conjugate, PCV7 (Prevnar7) Unknown Completed [facility] IPV Unknown Completed [facility] Influenza Virus Vaccine Quad IM, Preserv and ABX Free 6 MO-64 YRS (FLUCELVAX) Unknown Completed [facility] HPV9 Unknown Completed [facility] Influenza Virus Vaccine Quad .5 mL IM 6+ MO (FLUZONE/FLULAVAL/FL UARIX) Unknown Completed [facility] DTAP Unknown Completed [facility] HIB 4 Dose Schedule Unknown Completed [facility] HEPATITIS A Unknown Completed [facility] Hep B, Adol or Pedi Dosage Unknown Completed [facility] HPV Unknown Completed [facility] Influenza Virus Vaccine Unknown Completed [facility] Meningococcal Vaccine Unknown Completed [facility] MMR Unknown Completed [facility] Pneumococcal 13 Conjugate, PCV13 (Prevnar 13) Unknown Completed [facility] Polio (IPV/OPV) Unknown Completed [facility] TDAP Unknown Completed [facility] Varicella (varivax)(chicken pox) Unknown Completed [facility] DTaP, Unspecified Formulation Unknown Completed [facility] Meningococcal Polysaccharide (groups A, C, Y and W-135) conjugate vaccine (MCV4P) Unknown Completed [facility] Pneumococcal 7 Conjugate, PCV7 (Prevnar7) Unknown Completed [facility] IPV Unknown Completed [facility] Influenza Virus Vaccine Quad IM, Preserv and ABX Free 6 MO-64 YRS (FLUCELVAX) Unknown Completed [facility] HPV9 Unknown Completed [facility] Influenza Virus Vaccine Quad .5 mL IM 6+ MO (FLUZONE/FLULAVAL/FL UARIX) Unknown Completed [facility] DTAP Unknown Completed [facility] HIB 4 Dose Schedule Unknown Completed [facility] HEPATITIS A Unknown Completed [facility] Hep B, Adol or Pedi Dosage Unknown Completed [facility] HPV Unknown Completed [facility] Influenza Virus Vaccine Unknown Completed [facility] Meningococcal Vaccine Unknown Completed [facility] MMR Unknown Completed [facility] Pneumococcal 13 Conjugate, PCV13 (Prevnar 13) Unknown Completed [facility] Polio (IPV/OPV) Unknown Completed [facility] TDAP Unknown Completed [facility] Varicella (varivax)(chicken pox) Unknown Completed [facility] DTaP, Unspecified Formulation Unknown Completed [facility] Meningococcal Polysaccharide (groups A, C, Y and W-135) conjugate vaccine (MCV4P) Unknown Completed [facility] Pneumococcal 7 Conjugate, PCV7 (Prevnar7) Unknown Completed [facility] IPV Unknown Completed [facility] Influenza Virus Vaccine Quad IM, Preserv and ABX Free 6 MO-64 YRS (FLUCELVAX) Unknown Completed [facility] HPV9 Unknown Completed [facility] Influenza Virus Vaccine Quad .5 mL IM 6+ MO (FLUZONE/FLULAVAL/FL UARIX) Unknown Completed [facility] DTAP Unknown Completed [facility] HIB 4 Dose Schedule Unknown Completed [facility] HEPATITIS A Unknown Completed [facility] Hep B, Adol or Pedi Dosage Unknown Completed [facility] HPV Unknown Completed [facility] Influenza Virus Vaccine Unknown Completed [facility] Meningococcal Vaccine Unknown Completed [facility] MMR Unknown Completed [facility] Pneumococcal 13 Conjugate, PCV13 (Prevnar 13) Unknown Completed [facility] Polio (IPV/OPV) Unknown Completed [facility] TDAP Unknown Completed [facility] Varicella (varivax)(chicken pox) Unknown Completed [facility] DTaP, Unspecified Formulation Unknown Completed [facility] Meningococcal Polysaccharide (groups A, C, Y and W-135) conjugate vaccine (MCV4P) Unknown Completed [facility] Pneumococcal 7 Conjugate, PCV7 (Prevnar7) Unknown Completed [facility] IPV Unknown Completed [facility] Influenza Virus Vaccine Quad IM, Preserv and ABX Free 6 MO-64 YRS (FLUCELVAX) Unknown Completed [facility] Vital Signs Vital Name Observation Time Observation Value Comments S ource Systolic blood pressure 2024-10-05 21:15:00 149 mm[Hg] [facility] Diastolic blood pressure 2024-10-05 21:15:00 72 mm[Hg] [facility] Heart rate 2024-10-05 21:15:00 88 /min [facility] Respiratory rate 2024-10-05 21:15:00 19 /min [facility] Oxygen saturation in Arterial blood by Pulse oximetry 2024-10-05 21:15:00 97 /min [facility] Body temperature 2024-10-05 20:39:00 36.11 June [facility] Body height 2024-10-05 17:33:00 162.6 cm [facility] Body weight 2024-10-05 17:33:00 108.4 kg [facility] BMI 2024-10-05 17:33:00 41.02 kg/m2 [facility] Systolic blood pressure 2024-10-05 17:33:00 123 mm[Hg] [facility] Diastolic blood pressure 2024-10-05 17:33:00 73 mm[Hg] [facility] Heart rate 2024-10-05 17:33:00 85 /min [facility] Body temperature 2024-10-05 17:33:00 36.72 June [facility] Respiratory rate 2024-10-05 17:33:00 16 /min [facility] Body height 2024-10-05 17:33:00 162.6 cm [facility] 2024-10-05 17:33:00 108.4 kg [facility] BMI 2024-10-05 17:33:00 41.02 kg/m2 [facility] Oxygen saturation in Arterial blood by Pulse oximetry 2024-10-05 17:33:00 95 /min [facility] Systolic blood pressure 2024-09-19 15:18:00 120 mm[Hg] [facility] Diastolic blood pressure 2024-09-19 15:18:00 74 mm[Hg] [facility] Heart rate 2024-09-19 15:18:00 63 /min [facility] Body temperature 2024-09-19 15:18:00 36.22 June [facility] Body height 2024-09-19 15:18:00 162.6 cm [facility] Body weight 2024-09-19 15:18:00 110.859 kg [facility] BMI 2024-09-19 15:18:00 41.95 kg/m2 [facility] Oxygen saturation in Arterial blood by Pulse oximetry 2024-09-19 15:18:00 100 /min [facility] Systolic blood pressure 2024-09-12 20:48:00 126 mm[Hg] [facility] Diastolic blood pressure 2024-09-12 20:48:00 71 mm[Hg] [facility] Heart rate 2024-09-12 20:48:00 79 /min [facility] Body temperature 2024-09-12 20:48:00 36.22 June [facility] Respiratory rate 2024-09-12 20:48:00 18 /min [facility] Body height 2024-09-12 20:48:00 162.6 cm [facility] Body weight 2024-09-12 20:48:00 107.865 kg [facility] BMI 2024-09-12 20:48:00 40.82 kg/m2 [facility] Systolic blood pressure 2024-08-22 15:23:00 136 mm[Hg] [facility] Diastolic blood pressure 2024-08-22 15:23:00 88 mm[Hg] [facility] Heart rate 2024-08-22 15:23:00 72 /min [facility] Body temperature 2024-08-22 15:23:00 36.5 June [facility] Respiratory rate 2024-08-22 15:23:00 18 /min [facility] Body height 2024-08-22 15:23:00 162.6 cm [facility] Body weight 2024-08-22 15:23:00 108.069 kg [facility] BMI 2024-08-22 15:23:00 40.90 kg/m2 [facility] Systolic blood pressure 2024-08-08 14:59:00 133 mm[Hg] [facility] Diastolic blood pressure 2024-08-08 14:59:00 77 mm[Hg] [facility] Heart rate 2024-08-08 14:59:00 73 /min [facility] Body temperature 2024-08-08 14:59:00 36.72 June [facility] Respiratory rate 2024-08-08 14:59:00 17 /min [facility] Body height 2024-08-08 14:59:00 162.6 cm [facility] Body weight 2024-08-08 14:59:00 109.634 kg [facility] BMI 2024-08-08 14:59:00 41.49 kg/m2 [facility] Systolic blood pressure 2024-08-03 13:59:00 120 mm[Hg] [facility] Diastolic blood pressure 2024-08-03 13:59:00 69 mm[Hg] [facility] Heart rate 2024-08-03 13:59:00 62 /min [facility] Body temperature 2024-08-03 13:59:00 36.67 June [facility] Respiratory rate 2024-08-03 13:59:00 18 /min [facility] Oxygen saturation in Arterial blood by Pulse oximetry 2024-08-03 13:59:00 98 /min [facility] Body height 2024-08-01 13:40:00 162.6 cm [facility] Body weight 2024-08-01 13:40:00 115.123 kg [facility] BMI 2024-08-01 13:40:00 43.54 kg/m2 [facility] Systolic blood pressure 2024-07-28 13:52:00 131 mm[Hg] [facility] Diastolic blood pressure 2024-07-28 13:52:00 86 mm[Hg] [facility] Heart rate 2024-07-28 13:52:00 77 /min [facility] Body temperature 2024-07-28 13:52:00 36.61 June [facility] Respiratory rate 2024-07-28 13:52:00 20 /min [facility] Body height 2024-07-28 13:52:00 162.6 cm [facility] Body weight 2024-07-28 13:52:00 115.866 kg [facility] BMI 2024-07-28 13:52:00 43.85 kg/m2 [facility] Systolic blood pressure 2024-07-25 19:33:00 135 mm[Hg] [facility] Diastolic blood pressure 2024-07-25 19:33:00 78 mm[Hg] [facility] Heart rate 2024-07-25 19:33:00 84 /min [facility] Body temperature 2024-07-25 19:33:00 36.61 June [facility] Respiratory rate 2024-07-25 19:33:00 18 /min [facility] Body height 2024-07-25 19:33:00 162.6 cm [facility] 2024-07-25 19:33:00 114.363 kg [facility] BMI 2024-07-25 19:33:00 43.28 kg/m2 [facility] Systolic blood pressure 2024-07-20 19:52:00 123 mm[Hg] [facility] Diastolic blood pressure 2024-07-20 19:52:00 79 mm[Hg] [facility] Heart rate 2024-07-20 19:52:00 98 /min [facility] Body temperature 2024-07-20 19:52:00 36.56 June [facility] Respiratory rate 2024-07-20 19:52:00 18 /min [facility] Body height 2024-07-20 19:52:00 162.6 cm [facility] Body weight 2024-07-20 19:52:00 115.384 kg [facility] BMI 2024-07-20 19:52:00 43.66 kg/m2 [facility] Systolic blood pressure 2024-07-13 20:09:00 127 mm[Hg] [facility] Diastolic blood pressure 2024-07-13 20:09:00 72 mm[Hg] [facility] Heart rate 2024-07-13 20:09:00 90 /min [facility] Body temperature 2024-07-13 20:09:00 36.33 June [facility] Respiratory rate 2024-07-13 20:09:00 18 /min [facility] Body height 2024-07-13 20:09:00 162.6 cm [facility] Body weight 2024-07-13 20:09:00 114.391 kg [facility] BMI 2024-07-13 20:09:00 43.29 kg/m2 [facility] Systolic blood pressure 2024-07-10 20:12:00 116 mm[Hg] [facility] Diastolic blood pressure 2024-07-10 20:12:00 78 mm[Hg] [facility] Heart rate 2024-07-10 20:12:00 82 /min [facility] Body temperature 2024-07-10 20:12:00 36.17 June [facility] Respiratory rate 2024-07-10 20:12:00 19 /min [facility] Body height 2024-07-10 20:12:00 162.6 cm [facility] Body weight 2024-07-10 20:12:00 113.989 kg [facility] BMI 2024-07-10 20:12:00 43.14 kg/m2 [facility] Systolic blood pressure 2024-06-30 04:00:00 109 mm[Hg] [facility] Diastolic blood pressure 2024-06-30 04:00:00 73 mm[Hg] [facility] Heart rate 2024-06-30 04:00:00 77 /min [facility] Oxygen saturation in Arterial blood by Pulse oximetry 2024-06-30 04:00:00 99 /min [facility] Respiratory rate 2024-06-30 03:00:00 17 /min [facility] Body temperature 2024-06-30 01:00:00 36.94 June [facility] Systolic blood pressure 2024-06-29 20:59:00 145 mm[Hg] [facility] Diastolic blood pressure 2024-06-29 20:59:00 83 mm[Hg] [facility] Heart rate 2024-06-29 20:55:00 102 /min [facility] Body temperature 2024-06-29 20:55:00 36 June [facility] Respiratory rate 2024-06-29 20:55:00 18 /min [facility] Body height 2024-06-29 20:55:00 162.6 cm [facility] Body weight 2024-06-29 20:55:00 113.989 kg [facility] BMI 2024-06-29 20:55:00 43.14 kg/m2 [facility] Systolic blood pressure 2024-06-26 21:45:00 125 mm[Hg] [facility] Diastolic blood pressure 2024-06-26 21:45:00 54 mm[Hg] [facility] Heart rate 2024-06-26 21:45:00 93 /min [facility] Oxygen saturation in Arterial blood by Pulse oximetry 2024-06-26 21:45:00 98 /min [facility] Body temperature 2024-06-26 20:38:00 37.11 June [facility] Respiratory rate 2024-06-26 20:38:00 18 /min [facility] Body height 2024-06-26 20:08:00 162.6 cm [facility] Body weight 2024-06-26 20:08:00 114.397 kg [facility] BMI 2024-06-26 20:08:00 43.29 kg/m2 [facility] Systolic blood pressure 2024-06-15 17:27:00 115 mm[Hg] [facility] Diastolic blood pressure 2024-06-15 17:27:00 63 mm[Hg] [facility] Heart rate 2024-06-15 17:27:00 77 /min [facility] Body temperature 2024-06-15 17:27:00 36.33 June [facility] Respiratory rate 2024-06-15 17:27:00 18 /min [facility] Body height 2024-06-15 17:27:00 162.6 cm [facility] Body weight 2024-06-15 17:27:00 113.944 kg [facility] BMI 2024-06-15 17:27:00 43.12 kg/m2 [facility] Systolic blood pressure 2024-06-01 13:27:00 126 mm[Hg] [facility] Diastolic blood pressure 2024-06-01 13:27:00 76 mm[Hg] [facility] Heart rate 2024-06-01 13:27:00 78 /min [facility] Body temperature 2024-06-01 13:27:00 37 June [facility] Body height 2024-06-01 13:27:00 162.6 cm [facility] Body weight 2024-06-01 13:27:00 113.944 kg [facility] BMI 2024-06-01 13:27:00 43.12 kg/m2 [facility] Oxygen saturation in Arterial blood by Pulse oximetry 2024-06-01 13:27:00 98 /min [facility] Systolic blood pressure 2024-05-11 14:54:00 120 mm[Hg] [facility] Diastolic blood pressure 2024-05-11 14:54:00 75 mm[Hg] [facility] Heart rate 2024-05-11 14:54:00 72 /min [facility] Body temperature 2024-05-11 14:54:00 36.11 June [facility] Respiratory rate 2024-05-11 14:54:00 18 /min [facility] Body height 2024-05-11 14:54:00 162.6 cm [facility] Body weight 2024-05-11 14:54:00 112.294 kg [facility] BMI 2024-05-11 14:54:00 42.49 kg/m2 [facility] Systolic blood pressure 2024-04-05 19:30:00 96 mm[Hg] [facility] Diastolic blood pressure 2024-04-05 19:30:00 59 mm[Hg] [facility] Heart rate 2024-04-05 19:30:00 84 /min [facility] Oxygen saturation in Arterial blood by Pulse oximetry 2024-04-05 19:30:00 100 /min [facility] Body temperature 2024-04-05 17:23:00 36.67 June [facility] Systolic blood pressure 2024-04-05 14:06:00 135 mm[Hg] [facility] Diastolic blood pressure 2024-04-05 14:06:00 80 mm[Hg] [facility] Heart rate 2024-04-05 13:53:00 81 /min [facility] Body temperature 2024-04-05 13:51:00 36.78 June [facility] Respiratory rate 2024-04-05 13:51:00 18 /min [facility] Body height 2024-04-05 13:51:00 162.6 cm [facility] Body weight 2024-04-05 13:51:00 111.766 kg [facility] BMI 2024-04-05 13:51:00 42.29 kg/m2 [facility] Systolic blood pressure 2024-03-08 14:12:00 111 mm[Hg] [facility] Diastolic blood pressure 2024-03-08 14:12:00 68 mm[Hg] [facility] Heart rate 2024-03-08 14:12:00 77 /min [facility] Body temperature 2024-03-08 14:12:00 36.72 June [facility] Respiratory rate 2024-03-08 14:12:00 18 /min [facility] Body height 2024-03-08 14:12:00 162.6 cm [facility] Body weight 2024-03-08 14:12:00 110.95 kg [facility] BMI 2024-03-08 14:12:00 41.99 kg/m2 [facility] Systolic blood pressure 2024-02-17 14:48:00 136 mm[Hg] [facility] Diastolic blood pressure 2024-02-17 14:48:00 82 mm[Hg] [facility] Heart rate 2024-02-17 14:48:00 81 /min [facility] Body temperature 2024-02-17 14:48:00 36.61 June [facility] Respiratory rate 2024-02-17 14:48:00 18 /min [facility] Body height 2024-02-17 14:48:00 162.6 cm [facility] Body weight 2024-02-17 14:48:00 112.294 kg [facility] BMI 2024-02-17 14:48:00 42.49 kg/m2 [facility] Systolic blood pressure 2024-01-20 15:36:00 135 mm[Hg] [facility] Diastolic blood pressure 2024-01-20 15:36:00 83 mm[Hg] [facility] Heart rate 2024-01-20 15:36:00 89 /min [facility] Body temperature 2024-01-20 15:36:00 36.83 June [facility] Respiratory rate 2024-01-20 15:36:00 18 /min [facility] Body height 2024-01-20 15:36:00 162.6 cm [facility] Body weight 2024-01-20 15:36:00 112.634 kg [facility] BMI 2024-01-20 15:36:00 42.62 kg/m2 [facility] Systolic blood pressure 2024-01-18 14:55:00 138 mm[Hg] [facility] Diastolic blood pressure 2024-01-18 14:55:00 78 mm[Hg] [facility] Heart rate 2024-01-18 14:51:00 80 /min [facility] Body temperature 2024-01-18 14:51:00 36.17 June [facility] Respiratory rate 2024-01-18 14:51:00 16 /min [facility] Body height 2024-01-18 14:51:00 162.6 cm [facility] Body weight 2024-01-18 14:51:00 112.038 kg [facility] BMI 2024-01-18 14:51:00 42.40 kg/m2 [facility] Systolic blood pressure 2023-12-23 20:46:00 120 mm[Hg] [facility] Diastolic blood pressure 2023-12-23 20:46:00 68 mm[Hg] [facility] Heart rate 2023-12-23 20:46:00 76 /min [facility] Body temperature 2023-12-23 20:46:00 36.61 June [facility] Respiratory rate 2023-12-23 20:46:00 18 /min [facility] Body height 2023-12-23 20:46:00 162.6 cm [facility] Body weight 2023-12-23 20:46:00 109.459 kg [facility] BMI 2023-12-23 20:46:00 41.42 kg/m2 [facility] Systolic blood pressure 2023-12-22 13:00:00 121 mm[Hg] [facility] Diastolic blood pressure 2023-12-22 13:00:00 63 mm[Hg] [facility] Heart rate 2023-12-22 13:00:00 82 /min [facility] Body temperature 2023-12-22 13:00:00 36.83 June [facility] Respiratory rate 2023-12-22 13:00:00 16 /min [facility] Oxygen saturation in Arterial blood by Pulse oximetry 2023-12-22 13:00:00 99 /min [facility] Body height 2023-12-19 00:31:00 162.6 cm [facility] Body weight 2023-12-19 00:31:00 112.038 kg [facility] BMI 2023-12-19 00:31:00 42.40 kg/m2 [facility] Systolic blood pressure 2023-12-21 15:22:00 129 mm[Hg] [facility] Diastolic blood pressure 2023-12-21 15:22:00 79 mm[Hg] [facility] Heart rate 2023-12-21 15:22:00 76 /min [facility] Body temperature 2023-12-21 15:22:00 37.17 June [facility] Respiratory rate 2023-12-21 15:22:00 18 /min [facility] Oxygen saturation in Arterial blood by Pulse oximetry 2023-12-21 15:22:00 98 /min [facility] Body height 2023-12-19 00:31:00 162.6 cm [facility] Body weight 2023-12-19 00:31:00 112.038 kg [facility] BMI 2023-12-19 00:31:00 42.40 kg/m2 [facility] Systolic blood pressure 2023-12-09 03:20:00 137 mm[Hg] [facility] Diastolic blood pressure 2023-12-09 03:20:00 82 mm[Hg] [facility] Heart rate 2023-12-09 03:20:00 85 /min [facility] Body temperature 2023-12-09 03:20:00 36.72 June [facility] Respiratory rate 2023-12-09 03:20:00 18 /min [facility] Oxygen saturation in Arterial blood by Pulse oximetry 2023-12-09 03:20:00 98 /min [facility] Body height 2023-12-08 23:50:00 162.6 cm [facility] Body weight 2023-12-08 23:50:00 108.863 kg [facility] BMI 2023-12-08 23:50:00 41.20 kg/m2 [facility] Systolic blood pressure 2023-11-03 22:46:00 135 mm[Hg] [facility] Diastolic blood pressure 2023-11-03 22:46:00 81 mm[Hg] [facility] Heart rate 2023-11-03 22:46:00 95 /min [facility] Body temperature 2023-11-03 22:46:00 37.22 June [facility] Respiratory rate 2023-11-03 22:46:00 16 /min [facility] Body height 2023-11-03 22:46:00 162.6 cm [facility] Body weight 2023-11-03 22:46:00 108.954 kg [facility] BMI 2023-11-03 22:46:00 41.23 kg/m2 [facility] Oxygen saturation in Arterial blood by Pulse oximetry 2023-11-03 22:46:00 99 /min [facility] Systolic blood pressure 2023-05-14 20:29:00 135 mm[Hg] [facility] Diastolic blood pressure 2023-05-14 20:29:00 80 mm[Hg] [facility] Heart rate 2023-05-14 20:23:00 111 /min [facility] Body temperature 2023-05-14 20:23:00 36.17 June [facility] Respiratory rate 2023-05-14 20:23:00 18 /min [facility] Body height 2023-05-14 20:23:00 162.6 cm Univ [facility] Body weight 2023-05-14 20:23:00 116.257 kg [facility] BMI 2023-05-14 20:23:00 43.99 kg/m2 [facility] Systolic blood pressure 2023-04-26 20:18:00 116 mm[Hg] [facility] Diastolic blood pressure 2023-04-26 20:18:00 71 mm[Hg] [facility] Heart rate 2023-04-26 20:18:00 78 /min [facility] Body temperature 2023-04-26 20:18:00 36.5 June [facility] Respiratory rate 2023-04-26 20:18:00 18 /min [facility] Body height 2023-04-26 20:18:00 162.6 cm [facility] Body weight 2023-04-26 20:18:00 114.488 kg [facility] BMI 2023-04-26 20:18:00 43.32 kg/m2 [facility] Oxygen saturation in Arterial blood by Pulse oximetry 2023-04-26 20:18:00 95 /min [facility] Systolic blood pressure 2023-01-19 18:53:00 128 mm[Hg] [facility] Diastolic blood pressure 2023-01-19 18:53:00 86 mm[Hg] [facility] Heart rate 2023-01-19 18:53:00 93 /[facility] Body temperature 2023-01-19 18:53:00 35.83 June [facility] Respiratory rate 2023-01-19 18:53:00 18 /min [facility] Body height 2023-01-19 18:53:00 162.6 cm [facility] Body weight 2023-01-19 18:53:00 112.175 kg [facility] BMI 2023-01-19 18:53:00 42.45 kg/m2 [facility] Systolic blood pressure 2022-11-26 15:42:00 120 mm[Hg] [facility] Diastolic blood pressure 2022-11-26 15:42:00 73 mm[Hg] [place] [facility] Heart rate 2022-11-26 15:42:00 71 /min [facility] Body temperature 2022-11-26 15:42:00 36.94 June [facility] Respiratory rate 2022-11-26 15:42:00 17 /min [facility] Body height 2022-11-26 15:42:00 162.6 cm [facility] Body weight 2022-11-26 15:42:00 112.674 kg [facility] BMI 2022-11-26 15:42:00 42.64 kg/m2 [facility] Systolic blood pressure 2022-10-16 20:01:00 132 mm[Hg] [facility] Diastolic blood pressure 2022-10-16 20:01:00 81 mm[Hg] [facility] Heart rate 2022-10-16 20:01:00 73 /min [facility] Body temperature 2022-10-16 20:01:00 36.94 June [facility] Respiratory rate 2022-10-16 20:01:00 17 /min [facility] Body height 2022-10-16 20:01:00 162.6 cm [facility] Body weight 2022-10-16 20:01:00 109.861 kg [facility] BMI 2022-10-16 20:01:00 41.57 kg/m2 [facility] Systolic blood pressure 2022-05-13 23:22:00 106 mm[Hg] [place] [facility] Diastolic blood pressure 2022-05-13 23:22:00 74 mm[Hg] [facility] Heart rate 2022-05-13 23:22:00 80 /min [facility] Body temperature 2022-05-13 23:22:00 37.06 June [facility] Respiratory rate 2022-05-13 23:22:00 18 /min [facility] Body height 2022-05-13 23:22:00 162.6 cm [facility] Body weight 2022-05-13 23:22:00 107.502 kg [facility] BMI 2022-05-13 23:22:00 40.68 kg/m2 [facility] Oxygen saturation in Arterial blood by Pulse oximetry 2022-05-13 23:22:00 99 /min [facility] Systolic blood pressure 2022-04-28 14:07:00 116 mm[Hg] [facility] Diastolic blood pressure 2022-04-28 14:07:00 80 mm[Hg] [facility] Heart rate 2022-04-28 14:07:00 86 /min [facility] Body temperature 2022-04-28 14:07:00 36.56 June [facility] Respiratory rate 2022-04-28 14:07:00 16 /min [facility] Body height 2022-04-28 14:07:00 162.6 cm [facility] Body weight 2022-04-28 14:07:00 108.183 kg [facility] BMI 2022-04-28 14:07:00 40.94 kg/m2 [facility] Oxygen saturation in Arterial blood by Pulse oximetry 2022-04-28 14:07:00 98 /min [facility] Systolic blood pressure 2022-04-20 22:59:00 129 mm[Hg] [facility] Diastolic blood pressure 2022-04-20 22:59:00 82 mm[Hg] [facility] Heart rate 2022-04-20 22:59:00 94 /min [facility] Body temperature 2022-04-20 22:59:00 36.61 June [facility] Respiratory rate 2022-04-20 22:59:00 16 /min [facility] Body height 2022-04-20 22:59:00 162.6 cm [facility] Body weight 2022-04-20 22:59:00 108.818 kg [facility] BMI 2022-04-20 22:59:00 41.18 kg/m2 [facility] Oxygen saturation in Arterial blood by Pulse oximetry 2022-04-20 22:59:00 97 /min [facility] Systolic blood pressure 2022-04-05 16:37:00 119 mm[Hg] [facility] Diastolic blood pressure 2022-04-05 16:37:00 79 mm[Hg] [facility] Heart rate 2022-04-05 16:37:00 83 /min [facility] Body temperature 2022-04-05 16:37:00 37.17 June [facility] Respiratory rate 2022-04-05 16:37:00 16 /min [facility] Body height 2022-04-05 16:37:00 162.6 cm [facility] Body weight 2022-04-05 16:37:00 106.414 kg [facility] BMI 2022-04-05 16:37:00 40.27 kg/m2 [facility] Oxygen saturation in Arterial blood by Pulse oximetry 2022-04-05 16:37:00 98 /min [facility] Systolic blood pressure 2022-02-19 18:38:00 126 mm[Hg] [facility] Diastolic blood pressure 2022-02-19 18:38:00 81 mm[Hg] [facility] Heart rate 2022-02-19 18:38:00 104 /min [facility] Body temperature 2022-02-19 18:38:00 36.94 June [facility] Respiratory rate 2022-02-19 18:38:00 20 /min [facility] Body height 2022-02-19 18:38:00 162.6 cm [facility] Body weight 2022-02-19 18:38:00 105.779 kg [facility] BMI 2022-02-19 18:38:00 40.03 kg/m2 [facility] Procedures Procedure Date / Time Performed Performing Clinician Source URINE CULTURE 2024-10-05 19:21:00 Morgan Snow [facility] [id number] - [place] CONIZATION CERVIX W/WO D&C RPR KNIFE/LASER 2024-10-05 18:31:00 Morgan Snow [facility] HB ABO GROUPING 2024-10-05 17:55:00 Marialuisa Lilly [facility] HB ABO GROUPING 2024-10-05 17:55:00 Marialuisa Lilly [facility] CBC WITH DIFF 2024-10-05 17:54:00 Marialuisa Lilly [facility] CBC WITH DIFF 2024-10-05 17:54:00 Marialuisa Lilly [facility] POCT TEST 2024-10-05 17:47:00 Bebeto Lillyssie [facility] POCT TEST 2024-10-05 17:47:[facility] 2024-09-19 15:20:00 Rahul Thompson [facility] CBC WITH DIFF 2024-09-12 21:55:00 Martha Finney [facility] FLU VACC (), 6 MO-64 YRS, .5ML, IM, TIV (FLUCELVAX) 2024-09-12 21:15:53 [facility] 2024-09-12 20:53:00 Martha Finney [facility] CBC WITH DIFF 2024-08-02 11:28:00 Janice Morocho Mai [facility] VENOUS CORD GAS 2024-08-02 00:02:00 Claire Montes [facility] CENTRAL NEURAXIAL BLOCK 2024-08-01 17:20:00 Clara Whelan [facility] HEPATITIS B SURFACE ANTIGEN 2024-08-01 14:33:00 Claire Montes [facility] HB ABO GROUPING 2024-08-01 14:33:00 Claire Montes [facility] RHO (D) IMMUNE GLOBULIN 2024-08-01 14:33:00 Mnóica Ramirez Mai [facility] SYPHILIS IGG/IGM 2024-08-01 14:33:00 Claire Rosenbaum [facility] NON-STRESS TEST 2024-07-28 14:31:37 Camila Levin [facility] POCT URINALYSIS 2024-07-28 14:06:00 Rebeca Levin [facility] NON-STRESS TEST 2024-07-25 20:48:26 Camila Levin [facility] POCT URINALYSIS 2024-07-25 19:33:00 Rebeca Levin [facility] NON-STRESS TEST 2024-07-20 20:44:13 Camila Levin [facility] POCT URINALYSIS 2024-07-20 19:54:00 Rebeca Levin [facility] NON-STRESS TEST 2024-07-13 21:11:09 Camila Levin [facility] POCT URINALYSIS 2024-07-13 20:09:00 Rebeca Levin [facility] SGOT (ASPARTATE AMINO TRANSFER) 2024-06-30 02:16:00 Elizabeth Booth [facility] CREATININE 2024-06-30 02:16:00 [facility] ALANINE AMINO TRANSFERASE(SGPT 2024-06-30 02:16:00 Elizabeth Booth [facility] LACTATE DEHYDROGENASE 2024-06-30 02:16:00 Elizabeth Booth [facility] URIC ACID 2024-06-30 02:16:00 [facility] WITH DIFF 2024-06-30 02:16:00 [facility] 2024-06-30 02:16:00 Elizabeth Booth [facility] PROTEIN CREAT RATIO URINE RANDOM 2024-06-30 02:16:00 Elizabeth Booth [facility] POCT URINALYSIS 2024-06-29 21:02:00 Rebeca Levin [facility] POCT URINALYSIS 2024-06-01 13:28:00 Rebeca Levin [facility] TDAP VACCINE, >11 YRS, IM 2024-06-01 13:14:13 Rebeca Haynes [facility] SECOND AND THIRD TRIMESTER ULTRASOUND 2024-05-17 15:47:00 Rebeca Levin [facility] POCT URINALYSIS 2024-05-11 14:54:00 Rebeca Levin [facility] SECOND AND THIRD TRIMESTER ULTRASOUND 2024-04-13 16:18:00 Rebeca Levin [facility] SGOT (ASPARTATE AMINO TRANSFER) 2024-04-05 18:10:00 Jewels Elliott [facility] CREATININE 2024-04-05 18:10:00 Onkerri, [facility] rene [facility] ALANINE AMINO TRANSFERASE(SGPT 2024-04-05 18:10:00 Jewels Elliott [facility] LACTATE DEHYDROGENASE 2024-04-05 18:10:00 Jewels Murillo [facility] URIC ACID 2024-04-05 18:10:00 Onabaluiz, [facility] rene [facility] CBC WITH DIFF 2024-04-05 18:10:00 Onabaluiz, [facility] rene [facility] URINALYSIS 2024-04-05 18:10:00 Onkerri, [facility] rene [facility] PROTEIN CREAT RATIO URINE RANDOM 2024-04-05 18:10:00 Jewels Elliott [facility] POCT URINALYSIS 2024-04-05 14:46:00 Rebeca Levin [facility] CREATININE U 24 HR 2024-03-24 15:41:00 Sherita Levin [facility] PROTEIN QUANT U/24H 2024-03-24 15:41:00 Katina Levin [facility] POCT URINALYSIS 2024-03-08 14:17:00 Rebeca Levin [facility] POCT URINALYSIS 2024-02-17 14:47:00 Rebeca Levin [facility] SECOND AND THIRD TRIMESTER ULTRASOUND 2024-01-26 20:51:53 Rebeca Levin [facility] POCT URINALYSIS 2024-01-20 15:37:00 Rebeca Levin [facility] URINE CULTURE 2024-01-18 15:29:00 Teresa Will [facility] SURGICAL PATHOLOGY EXAM 2024-01-18 15:29:00 Anna Will [facility] POCT TEST 2023-12-23 20:45:00 Katina Levin [facility] POCT URINALYSIS W/O SPECIFIC GRAVITY 2023-12-23 20:45:00 Rebeca Levin [facility] REPORT OF 2023-12-23 06:01:00 Doctor Lisandro pagan, [place] [facility] HEPATIC FUNCTION PANEL ([id number]) (ALB,T.PRO,BILI T,BU/BC,ALT,AST,ALK PHOS) 2023-12-22 10:06:00 Devon Greene [facility] BASIC METABOLIC PANEL (NA, K, CL, CO2, GLUCOSE, BUN, CREATININE, CA) 2023-12-22 10:06:00 [facility] 2023-12-22 10:06:00 Devon Greene [facility] HEPATIC FUNCTION PANEL ([id number]) (ALB,T.PRO,BILI T,BU/BC,ALT,AST,ALK PHOS) 2023-12-22 10:06:00 [facility] PANEL (NA, K, CL, CO2, GLUCOSE, BUN, CREATININE, CA) 2023-12-22 10:06:00 [facility]FF 2023-12-22 10:06:00 Devon Greene [facility] HB ECG ROUTINE & RHYTHM STRIP 2023-12-21 21:26:54 [facility] & RHYTHM STRIP 2023-12-21 21:26:54 [facility] 2023-12-21 20:23:00 Devon Greene [facility] CBC WITHOUT DIFF 2023-12-21 20:23:00 Devon [facility] TROPONIN I 2023-12-21 20:23:00 Devon Greene [facility] CBC WITHOUT DIFF 2023-12-21 20:23:00 Devon Greene Un [facility] LAPAROSCOPIC CHOLECYSTECTOMY 2023-12-21 16:18:00 Whelan [facility] LAPAROSCOPIC CHOLECYSTECTOMY 2023-12-21 16:18:00 Whelan [facility] HEPATIC FUNCTION PANEL ([id number]) (ALB,T.PRO,BILI T,BU/BC,ALT,AST,ALK PHOS) 2023-12-21 10:16:00 Ramona [facility] BASIC METABOLIC PANEL (NA, K, CL, CO2, GLUCOSE, BUN, CREATININE, CA) 2023-12-21 10:16:00 Ramona [facility] CBC WITH DIFF 2023-12-21 10:16:00 [facility] ([id number]) (ALB,T.PRO,BILI T,BU/BC,ALT,AST,ALK PHOS) 2023-12-21 10:16:00 [facility]IC [facility]OLIC PANEL (NA, K, CL, CO2, GLUCOSE, BUN, CREATININE, CA) 2023-12-21 10:16:00 [facility] WITH DIFF 2023-12-21 10:16:00 Devon Greene [facility] LIPASE 2023-12-20 10:10:00 Bhakti Grissom [facility] HEPATIC FUNCTION PANEL ([id number]) (ALB,T.PRO,BILI T,BU/BC,ALT,AST,ALK PHOS) 2023-12-20 10:10:00 Bhakti Grissom [facility] BASIC METABOLIC PANEL (NA, K, CL, CO2, GLUCOSE, BUN, CREATININE, CA) 2023-12-20 10:10:00 Bhakti Grissom [facility] CBC WITH DIFF 2023-12-20 10:10:00 Bhakti Grissom [facility] LIPASE 2023-12-20 10:10:00 Bhakti Grissom [facility] HEPATIC FUNCTION PANEL ([id number]) (ALB,T.PRO,BILI T,BU/BC,ALT,AST,ALK PHOS) 2023-12-20 10:10:00 Bhakti Grissom [facility] BASIC METABOLIC PANEL (NA, K, CL, CO2, GLUCOSE, BUN, CREATININE, CA) 2023-12-20 10:10:00 Bhakti Grissom [facility] CBC WITH DIFF 2023-12-20 10:10:00 Bhakti Grissom [facility] LIPASE 2023-12-19 18:15:00 Jorge Luis Ruth [facility] HEPATIC FUNCTION PANEL ([id number]) (ALB,T.PRO,BILI T,BU/BC,ALT,AST,ALK PHOS) 2023-12-19 18:15:00 Jorge Luis Ruth [facility] CBC WITH DIFF 2023-12-19 18:15:00 Jorge Luis Ruth [facility] LIPASE 2023-12-19 18:15:00 Jorge Luis Ruth [facility] HEPATIC FUNCTION PANEL ([id number]) (ALB,T.PRO,BILI T,BU/BC,ALT,AST,ALK PHOS) 2023-12-19 18:15:00 Jorge Luis Ruth [facility] CBC WITH DIFF 2023-12-19 18:15:00 Jorge Luis Ruth [facility] US GALL BLADDER 2023-12-18 20:28:00 Quique Staton [facility] US GALL BLADDER 2023-12-18 20:28:00 Quique Staton [facility] ASSIGNMENT OF BENEFITS 2023-12-18 18:28:41 Docto r Unassigned, [place] [facility] ASSIGNMENT OF BENEFITS 2023-12-18 18:28:41 Docto r Unassigned, [place] [facility] POCT TEST 2023-12-18 18:16:00 Quique Staton [facility] POCT TEST 2023-12-18 18:16:00 Quique Staton [facility] LIPASE 2023-12-18 18:15:00 Quique Staton [facility] COMP. METABOLIC PANEL ([id number]) 2023-12-18 18:15:00 Quique Staton [facility] CBC WITH DIFF 2023-12-18 18:15:00 Quique Staton [facility] LIPASE 2023-12-18 18:15:00 Quique Staton [facility] COMP. METABOLIC PANEL ([id number]) 2023-12-18 18:15:00 Quique Staton [facility] CBC WITH DIFF 2023-12-18 18:15:00 Quique Staton [facility] URINALYSIS 2023-12-18 18:12:00 Quique Staton [facility] URINALYSIS 2023-12-18 18:12:00 Quique Staton [facility] CONSENT/REFUSAL FOR DIAGNOSIS AND TREATMENT 2023-12-18 17:48:43 Doctor Unassigned, [place] [facility] CONSENT/REFUSAL FOR DIAGNOSIS AND TREATMENT 2023-12-18 17:48:43 Doctor Unassigned, [place] [facility] CT ABDOMEN PELVIS W CONTRAST 2023-12-09 00:46:00 Sarah Cuadra [facility] LIPASE 2023-12-09 00:18:00 Sarah Cuadra Un [facility] COMP. METABOLIC PANEL ([id number]) 2023-12-09 00:18:00 Sarah Cuadra [facility] CBC WITH DIFF 2023-12-09 00:18:00 [facility] 2023-12-09 00:18:00 Sarah [facility] TEST 2023-12-09 00:17:00 Sarah Cuadra [facility] CONSENT/REFUSAL FOR DIAGNOSIS AND TREATMENT 2023-12-08 23:31:05 Doctor Unassigned, [place] [facility] ASSIGNMENT OF BENEFITS 2023-11-04 00:06:40 Docto r Unassigned, [place] [facility] URINALYSIS 2023-11-03 23:12:00 Vick Valadez [facility] ADC CLC OR LCC ONLY - WET PREP 2023-11-03 23:12:00 Vick Valadez [facility] CONSENT/REFUSAL FOR DIAGNOSIS AND TREATMENT 2023-11-03 22:36:24 Doctor Unassigned, [place] [facility] POCT TEST 2023-04-26 20:23:00 Katina Levin [facility] ASSIGNMENT OF BENEFITS 2023-04-26 19:40:09 Marie ybarra Unassigned, [place] [facility] HIV 1/2 AG-AB WITH REFLEX 2023-01-19 19:40:00 Krzysztof Avitia [facility] PAP SMEAR-LIQUID BASED-CP 2023-01-19 19:40:00 Krzysztof Avitia [facility] FLU VACC ([id number]), 6 MO-64 YRS, .5ML, IM, QUAD (FLUCELVAX) 2023-01-19 19:13:14 Krzysztof Avitia [facility] CONSENT/REFUSAL FOR DIAGNOSIS AND TREATMENT 2023-01-19 18:30:47 Doctor Unassigned, [place] [facility] POCT TEST 2022-11-26 00:00:00 Katina Levin [facility] XR CHEST 2 VW 2022-05-13 23:52:03 Rahul Downs [facility] DISCLOSURE AND CONSENT, MEDICAL AND SURGICAL PROCEDURES 2022-02-19 05:01:00 Doctor Unassigned, [place] [facility] Encounters Start Date/Time End Date/Time Encounter Type Admission Type Attending Clinicians Care Facility Care Department Encounter ID Source 2024-09-19 11:42:54 Outpatient R MORGAN SNOW [facility] 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 [id number] [facility] 2024-04-05 15:28:46 Outpatient P [facility] ENRRIQUE [id number] [facility] 2023-12-22 12:03:19 Outpatient X [facility] ABDIEL [id number] [facility] 2021-08-23 03:49:21 Outpatient [facility] [id number] [facility] 2021-08-22 19:39:05 Outpatient P [facility] ENRRIQUE [id number] [facility] 2021-08-22 19:38:37 Outpatient [facility] [id number] [facility] 2024-10-05 11:20:00 2024-10-05 15:36:00 Outpatient R MORGAN SNOW [facility] AUTOMOBILE RADIATOR MECHANIC [id number] [facility] 2024-10-05 11:20:00 2024-10-05 15:36:00 Hospital Encounter Morgan Snow [facility] ([facility]) 1.2.840.114 350.1.13.10 4.2.7.2.686 [id number] [facility] 2024-10-05 12:23:00 2024-10-05 14:12:00 Surgery Morgan Snow W [facility] ([facility]) 1.2.840.114 350.1.13.10 4.2.7.2.686 [id number] [facility] 2024-09-26 00:00:00 2024-09-26 11:44:09 Telephone Pam Hedrick [facility] ([facility]) 1.2.840.114 350.1.13.10 4.2.7.2.686 [id number] [facility] 2024-09-26 00:00:00 2024-09-26 09:49:04 Telephone Elizabeth Booth [facility] ([facility]) 1.2.840.114 350.1.13.10 4.2.7.2.686 [id number] [facility] 2024-09-26 00:00:00 2024-09-26 09:42:14 Letter (Out) Leland Rosario Elizabeth [facility] ([facility]) 1.20.114 350.1.13.10 4.2.7.2.686 [id number] [facility] 2024-09-19 00:00:00 2024-09-19 11:00:37 Prep For Surgery Leland Rosario Elizabeth [facility] ([facility]) 1.20.114 350.1.13.10 4.2.7.2.686 [id number] [facility] 2024-09-19 08:30:00 2024-09-19 09:43:58 Outpatient R RAHUL THOMPSON [facility] [id number] [facility] 2024-09-19 08:30:00 2024-09-19 09:43:58 Office Visit Res-Colpo/L eep, [facility] Rahul Thompson Res-Colpo/L eep, [facility] ([facility]) 1..114 350.1.13.10 4.2.7.2.686 [id number] [facility] 2024-09-12 14:30:00 2024-09-12 15:56:42 Outpatient R MARTHA FINNEY [facility] [id number] [facility] 2024-09-12 14:30:00 2024-09-12 15:56:42 Office Visit Martha Finney [facility] TRAY DELIVERY AIDE [facility] 1..114 350.1.13.10 4.2.7.2.686 [id number] [facility] 2024-08-22 00:00:00 2024-08-23 15:06:07 Telephone Rebeca Levin [facility] TRAY DELIVERY AIDE [facility] 1.0.114 350.1.13.10 4.2.7.2.686 [id number] [facility] 2024-08-22 10:00:00 2024-08-22 11:24:52 Outpatient R REBECA LEVIN [facility] [id number] [facility] 2024-08-22 10:00:00 2024-08-22 11:24:52 Routine Visit Rebeca Levin [facility] TRAY DELIVERY AIDE [facility] & CHILD [facility] 1..840.114 350.1.13.10 4.2.7.2.686 [id number] [facility] 2024-08-08 10:00:00 2024-08-08 10:08:07 Outpatient R KRZYSZTOF AVITIA [facility] [id number] [facility] 2024-08-08 10:00:00 2024-08-08 10:08:07 [facility] Krzysztof Avitia C Visit, [facility] Nurse [facility] TRAY DELIVERY AIDE [facility] & CHILD [facility] 1..840.114 350.1.13.10 4.2.7.2.686 [id number] [facility] 2024-06-30 00:00:00 2024-08-05 18:23:03 Patient Secure Msg Doctor Unassigned, [place] Doctor Unassigned, [place] [facility] TRAY DELIVERY AIDE [facility] & CHILD [facility] 1..840.114 350.1.13.10 4.2.7.2.686 [id number] [facility] 2024-08-01 08:17:00 2024-08-03 18:00:00 Inpatient P DAVID HILL CHASEY [facility] ENRRIQUE [id number] [facility] 2024-08-01 08:17:00 2024-08-03 18:00:00 Hospital Encounter David Hilluvgómez [facility] ([facility]) 1.0.114 350.1.13.10 4.2.7.2.686 [id number] [facility] 2024-08-01 12:15:00 2024-08-01 19:30:00 Anesthesia Event Clara Whelan, Shannon Queen [facility] ([facility]) 1..114 350.1.13.10 [id number] [id number] [facility] 2024-07-31 00:00:00 2024-08-01 06:31:18 Refill Rebeca Levin [facility] TRAY DELIVERY AIDE [facility] 1..114 350.1.13.10 [id number] [id number] [facility] 2024-07-28 08:45:00 2024-07-28 09:42:16 Outpatient R REBECA LEVIN [facility] [id number] [facility] 2024-07-28 08:45:00 2024-07-28 09:42:16 Routine Visit Rebeca Levin [facility] TRAY DELIVERY AIDE [facility] [facility] 1..114 350.1.13.10 4.2.7.2.686 [id number] 107 [id number] [facility] 2024-07-25 14:45:00 2024-07-25 15:10:56 Outpatient R REBECA LEVIN [facility] [id number] [facility] 2024-07-25 14:45:00 2024-07-25 15:10:56 Routine Visit Rebeca Levin [facility] TRAY DELIVERY AIDE [facility] CHILD [facility] 1.2.114 350.1.13.10 4.2.7.2.686 [id number] 107 [id number] [facility] 2024-07-21 00:00:00 2024-07-21 14:21:35 Telephone PickRebeca faust [facility] TRAY DELIVERY AIDE [facility]ILD [facility] 1.2.840.114 350.1.13.10 4.2.7.2.686 [id number] 107 [id number] [facility] 2024-07-20 14:45:00 2024-07-20 15:41:36 Outpatient R BONNIEKATINA WileyNDA [facility] [id number] [facility] 2024-07-20 14:45:00 2024-07-20 15:41:36 Routine Visit LiseRebeca faust [facility] TRAY DELIVERY AIDE [facility] 1.2.840.114 350.1.13.10 4.2.7.2.686 [id number] 107 [id number] [facility] 2024-07-18 00:00:00 2024-07-18 09:32:42 Case Management BonnieDeepika wileya [facility] TRAY DELIVERY AIDE [facility] 1..840.114 350.1.13.10 4.2.7.2.686 [id number] 107 [id number] [facility] 2024-07-13 15:00:00 2024-07-13 16:08:39 Outpatient R BONNIEKATINA WileyNDA [facility] [id number] [facility] 2024-07-13 15:00:00 2024-07-13 16:08:39 Routine Visit Poonam Rebeca Theodora [facility] TRAY DELIVERY AIDE [facility] 1..840.114 350.1.13.10 4.2.7.2.686 [id number] 107 [id number] [facility] 2024-07-10 15:00:00 2024-07-10 15:45:18 Outpatient R KRZYSZTOF [facility] [id number] [facility] 2024-07-10 15:00:00 2024-07-10 15:45:18 Routine Visit Krzysztof Avitia [facility] TRAY DELIVERY AIDE [facility] 1.840.114 350.1.13.10 4.2.7.2.686 [id number] 107 [id number] [facility] 2024-07-07 08:45:00 2024-07-07 08:45:00 Outpatient R LISEKATINA FAUSTNDA [facility] [id number] [facility] 2024-06-29 19:33:00 2024-06-30 00:00:00 Outpatient P DAVID HILL CHASEY [facility] [id number] [facility] 2024-06-29 19:33:00 2024-06-30 00:00:00 Hospital Encounter David Hill Zeeshan [facility] 1.840.114 350.1.13.10 4.2.7.2.686 [id number] [facility] 2024-06-29 15:30:00 2024-06-29 16:18:05 Outpatient R KRZYSZTOF [facility] [id number] [facility] 2024-06-29 15:30:00 2024-06-29 16:18:05 Routine Visit Krzysztof Avitia [facility] TRAY DELIVERY AIDE [facility] 1.840.114 350.1.13.10 4.2.7.2.686 [id number] [facility] 2024-06-26 15:10:00 2024-06-26 17:25:00 Outpatient X JALYN BILLS VIEN [facility] [id number] [facility] 2024-06-26 15:10:00 2024-06-26 17:25:00 Emergency Marlee Crawford Vien Cam [facility] 1.840.114 350.1.13.10 4.2.7.2.686 [id number] [facility] 2024-06-15 12:30:00 2024-06-15 12:45:00 Routine Visit Rebeca Levin [facility] TRAY DELIVERY AIDE [facility] .840.114 350.1.13.10 4.2.7.2.686 [id number] 107 [id number] [facility] 2024-06-15 12:30:00 2024-06-15 12:30:00 Outpatient R REBECA LEVIN [facility] [id number] [facility] 2024-06-01 00:00:00 2024-06-01 08:51:22 Letter (Out) Rebeca Levin [facility] TRAY DELIVERY AIDE [facility] .840.114 350.1.13.10 4.2.7.2.686 [id number] 107 [id number] [facility] 2024-06-01 08:30:00 2024-06-01 08:49:41 Outpatient R KRZYSZTOF [facility] [id number] [facility] 2024-06-01 08:30:00 2024-06-01 08:49:41 Routine Visit Rebeca Levin [facility] TRAY DELIVERY AIDE [facility] .840.114 350.1.13.10 4.2.7.2.686 [id number] 107 [id number] [facility] 2024-05-18 00:00:00 2024-05-18 07:18:17 Case Management Rebeca Levin [facility] TRAY DELIVERY AIDE [facility] .840.114 350.1.13.10 4.2.7.2.686 [id number] 107 [id number] [facility] 2024-05-17 00:00:00 2024-05-17 10:45:56 Letter (Out) Krzysztof Avitia [facility] TRAY DELIVERY AIDE [facility] 1.2.840.114 350.1.13.10 4.2.7.2.686 [id number] 107 [id number] [facility] 2024-05-17 10:15:00 2024-05-17 10:44:42 Outpatient P UNKNOWN, ATTENDING [facility] [id number] [facility] 2024-05-17 10:15:00 2024-05-17 10:44:42 Clinical Researcher Visit Ultrasound, Ang-Mfm Unknown, Attending [facility] TRAY DELIVERY AIDE [facility] 1..840.114 350.1.13.10 4.2.7.2.686 [id number] [facility] 2024-05-15 00:00:00 2024-05-15 12:10:50 Case Management Rebeca Levin [facility] 1..840.114 350.1.13.10 4.2.7.2.686 [id number] 107 [id number] [facility] 2024-05-11 00:00:00 2024-05-11 10:33:40 Letter (Out) Rebeca Levin [facility] 1..840.114 350.1.13.10 4.2.7.2.686 [id number] 107 [id number] [facility] 2024-05-11 09:45:00 2024-05-11 10:29:14 Outpatient R REBECA LEVIN [facility] [id number] [facility] 2024-05-11 09:45:00 2024-05-11 10:29:14 Routine Visit Rebeca Leivn [facility] TRAY DELIVERY [facility] 1.840.114 350.1.13.10 4.2.7.2.686 [id number] 107 [id number] [facility] 2024-05-03 07:15:00 2024-05-03 07:15:00 Outpatient R POONAM REBECA [facility] [id number] [facility] 2024-04-14 00:00:00 2024-04-14 11:04:28 Case Management Poonam Rebeca Yip [facility] TRAY DELIVERY AIDE [facility] CH[facility] 1..840.114 350.1.13.10 4.2.7.2.686 [id number] 107 [id number] [facility] 2024-04-13 10:15:00 2024-04-13 11:35:01 Outpatient R POONAM REBECA [facility] [id number] [facility] 2024-04-13 10:15:00 2024-04-13 11:35:01 Clinical Researcher Visit Ultrasound, [facility] Poonam Rebeca Yip [facility] TRAY DELIVERY AIDE [facility] CH[facility] 1.840.114 350.1.13.10 4.2.7.2.686 [id number] [facility] 2024-04-05 12:06:00 2024-04-05 15:28:00 Outpatient TANISHA GOTTLIEB KARIN FOX, KARIN [facility] [id number] [facility] 2024-04-05 12:06:00 2024-04-05 15:28:00 Hospital Encounter Tanisha Soares [facility] 1.840.114 350.1.13.10 4.2.7.2.686 [id number] [facility] 2024-04-05 08:45:00 2024-04-05 09:21:58 Routine Visit Krzysztof Avitia [facility] TRAY DELIVERY AIDE [facility] 1..114 350.1.13.10 4.2.7.2.686 [id number] [facility] 2024-04-05 08:45:00 2024-04-05 09:21:58 Outpatient R KRZYSZTOF [facility]IT[facility] [id number] [facility] 2024-03-24 08:45:00 2024-03-24 10:02:38 Outpatient R LISEKATINA FAUSTNDA [facility] [id number] [facility] 2024-03-24 08:45:00 2024-03-24 10:02:38 Clinical Researcher Visit Lab, Ang[facility]chp [facility] 1.840.114 350.1.13.10 4.2.7.2.686 [id number] 107 [id number] [facility] 2024-03-08 09:45:00 2024-03-08 09:46:04 Outpatient R BONNIEPeter REBECA [facility] [id number] [facility] 2024-03-08 09:45:00 2024-03-08 09:46:04 Routine Visit Rebeca Levin [facility] TRAY DELIVERY AIDE [facility] 1.840.114 350.1.13.10 4.2.7.2.686 [id number] 107 [id number] [facility] 2024-02-17 10:15:00 2024-02-17 10:15:00 Routine Visit [facility] 1.840.114 350.1.13.10 4.2.7.2.686 [id number] 107 [id number] [facility] 2024-02-17 10:15:00 2024-02-17 10:13:55 Outpatient R BONNIEPeter REBECA [facility] [id number] [facility] 2024-02-03 00:00:00 2024-02-03 00:00:[address] [facility] .0.114 350.1.13.10 4.2.7.2.686 [id number] [facility] 2024-01-27 00:00:00 2024-01-27 00:00:00 Case Management Poonam Rebeca [facility] TRAY DELIVERY AIDE [facility] 1..114 350.1.13.10 4.2.7.2.686 [id number] 107 [id number] [facility] 2024-01-26 15:00:00 2024-01-26 16:09:44 Outpatient P DAVID HILL [facility] [id number] [facility] 2024-01-26 15:00:00 2024-01-26 16:09:44 Clinical Researcher Visit Ultrasound, Bret-David Kimble [facility] TRAY DELIVERY AIDE [facility] 1..114 350.1.13.10 4.2.7.2.686 [id number] [facility] 2024-01-20 10:30:00 2024-01-20 11:06:19 Outpatient R REBECA LEVIN [facility] [id number] [facility] 2024-01-20 10:30:00 2024-01-20 11:06:19 Routine Visit Rebeca Levin [facility] DEL[facility]ERY [facility] 1..114 350.1.13.10 4.2.7.2.686 [id number] 107 [id number] [facility] 2024-01-18 09:00:00 2024-01-18 10:18:26 Outpatient R LUIS A BONILLA [facility] [id number] [facility] 2024-01-18 09:00:00 2024-01-18 10:18:26 Office Visit Res-Colpo/L eep, c-Rmchp Luis A Bonilla [facility] ..114 350.1.13.10 4.2.7.2.686 [id number] [facility] 2024-01-03 00:00:00 2024-01-03 00:00:00 Telephone Krzysztof Avitia [facility] TRAY DELIVERY AIDE [facility] CHILD [facility] 1.2.840.114 350.1.13.10 4.2.7.2.686 [id number] [facility] 2023-12-31 00:00:00 2023-12-31 00:00:00 Telephone Rebeca Levin [facility] TRAY DELIVERY AIDE [facility] 1.2.840.114 350.1.13.10 4.2.7.2.686 [id number] 107 [id number] [facility] 2023-12-27 00:00:00 2023-12-27 00:00:00 Telephone Rebeca Levin [facility] TRAY DELIVERY AIDE [facility] CH[facility] 1.2.840.114 350.1.13.10 4.2.7.2.686 [id number] 107 [id number] [facility] 2023-12-26 00:00:00 2023-12-26 00:00:00 Patient Secure Msg Rebeca Levin [facility] 1.2.840.114 350.1.13.10 4.2.7.2.686 [id number] 107 [id number] [facility] 2023-12-25 00:00:00 2023-12-25 00:00:00 Patient Secure Msg Kiah Whelan [facility] 1.2.840.114 350.1.13.10 4.2.7.2.686 [id number] [facility] 2023-12-23 13:45:00 2023-12-23 15:47:06 Initial Visit Rebeca Levin [facility] TRAY DELIVERY AIDE [facility] 1.2.840.114 350.1.13.10 4.2.7.2.686 [id number] 107 [id number] [facility] 2023-12-23 13:15:00 2023-12-23 14:09:33 Outpatient REBECA WHITING [facility] [id number] [facility] 2023-12-23 10:30:00 2023-12-23 10:30:00 Outpatient ZOEY SOTO [facility] [id number] [facility] 2023-12-23 00:00:00 2023-12-23 00:00:00 Transition of Care Scott Gilma SHEARCristhian JAYLIN CHIN 1.84.114 350.1.13.10 4.2.7.2.686 [id number] [facility] 2023-12-23 00:00:00 2023-12-23 00:00:00 Orders Only Doctor Unassigned, [place] [facility] 1.84.114 350.1.13.10 4.2.7.2.686 [id number] [facility] 2023-12-18 11:54:00 2023-12-22 11:55:00 Outpatient BHAKTI MARTE [facility] [id number] [facility] 2023-12-18 11:54:00 2023-12-22 11:55:00 Emergency Quique Staton David [facility] 1.84.114 350.1.13.10 4.2.7.2.686 [id number] [facility] 2023-12-21 10:10:00 2023-12-21 12:39:00 Surgery Kiah Whelan [facility] 1.114 350.1.13.10 4.2.7.2.686 [id number] [facility] 2023-12-16 11:00:00 2023-12-16 11:00:00 Outpatient ZOEY SOTO [facility] [id number] [facility] 2023-12-08 17:53:00 2023-12-08 21:35:00 Emergency X SARAH CUADRA [facility] [id number] [facility] 2023-12-08 17:53:00 2023-12-08 21:35:00 Emergency Sarah Cuadra [facility] 1.2.840.114 350.1.13.10 4.2.7.2.686 [id number] [facility] 2023-11-03 16:48:00 2023-11-03 18:37:00 Emergency X VICK VALADEZ VALADEZVICK [facility] [id number] [facility] 2023-11-03 16:48:00 2023-11-03 18:37:00 Emergency Vick Valadez [facility] 1.2.840.114 350.1.13.10 4.2.7.2.686 [id number] [facility] 2023-08-17 14:15:00 2023-08-17 14:15:00 Outpatient R KRZYSZTOF [facility]IT[facility] [id number] [facility] 2023-08-13 00:00:00 2023-08-13 00:00:00 Patient Secure Msg Doctor Unassigned, [place] [facility] 1.2.840.114 350.1.13.10 4.2.7.2.686 [id number] [facility] 2023-07-19 13:00:00 2023-07-19 13:00:00 Outpatient R KRZYSZTOF [facility] [id number] [facility] 2023-05-14 15:00:00 2023-05-14 15:58:25 Outpatient R KRZYSZTOF [facility] [id number] [facility] 2023-05-14 15:00:00 2023-05-14 15:58:25 Office Visit Krzysztof Avitia [facility] TRAY DELIVERY AIDE [facility] 1.840.114 350.1.13.10 4.2.7.2.686 [id number] 107 [id number] [facility] 2023-05-14 00:00:00 2023-05-14 00:00:00 Telephone Krzysztof Avitia [facility] TRAY DELIVERY AIDE [facility] 1.840.114 350.1.13.10 4.2.7.2.686 [id number] 107 [id number] [facility] 2023-04-30 00:00:00 2023-04-30 00:00:00 Telephone Rebeca Levin [facility] TRAY DELIVERY AIDE [facility] CH[facility] 1.0.114 350.1.13.10 4.2.7.2.686 [id number] 107 [id number] [facility] 2023-04-28 00:00:00 2023-04-28 00:00:00 Telephone Rebeca Levin [facility] TRAY DELIVERY AIDE [facility] CH[facility] 1.0.114 350.1.13.10 4.2.7.2.686 [id number] 107 [id number] [facility] 2023-04-26 14:30:00 2023-04-26 15:58:14 Outpatient R REBECA LEVIN [facility] [id number] [facility] 2023-04-26 14:30:00 2023-04-26 15:58:14 Office Visit Rebeca Levin [facility] TRAY DELIVERY AIDE [facility] 1.0.114 350.1.13.10 4.2.7.2.686 [id number] [facility] 2023-04-26 00:00:00 2023-04-26 00:00:00 Orders Only Doctor Unassigned, [place]onne [facility] 1.0.114 350.1.13.10 4.2.7.2.686 [id number] [facility] 2023-04-26 00:00:00 2023-04-26 00:00:00 Letter (Out) Rebeca Levin [facility] TRAY DELIVERY AIDE [facility] 1..840.114 350.1.13.10 4.2.7.2.686 [id number] [facility] 2023-02-18 13:00:00 2023-02-18 13:00:00 Outpatient R KRZYSZTOF [facility]IT[facility] [id number] [facility] 2023-01-26 00:00:00 2023-01-26 00:00:00 Telephone Krzysztof Avitia [facility] TRAY DELIVERY AIDE [facility] 1..840.114 350.1.13.10 4.2.7.2.686 [id number] 107 [id number] [facility] 2023-01-21 00:00:00 2023-01-21 00:00:00 Telephone Krzysztof Avitia [facility] TRAY DELIVERY AIDE [facility] CH[facility] .840.114 350.1.13.10 4.2.7.2.686 [id number] [facility] 2023-01-19 13:45:00 2023-01-19 14:43:04 Outpatient R KRZYSZTOF [facility]IT[facility] [id number] [facility] 2023-01-19 13:45:00 2023-01-19 14:43:04 Office Visit Krzysztof Avitia [facility] TRAY DELIVERY AIDE [facility] CHILD [facility] 1.840.114 350.1.13.10 4.2.7.2.686 [id number] [facility] 2023-01-19 00:00:00 2023-01-19 00:00:00 Orders Only Doctor Unassigned, [place]onne [facility] 1.2.114 350.1.13.10 4.2.7.2.686 [id number] [facility] 2022-11-26 09:30:00 2022-11-26 10:21:24 Outpatient R REBECA LEVIN [facility] [id number] [facility] 2022-11-26 09:30:00 2022-11-26 10:21:24 Office Visit Provider, Bret-Rmchp Rebeca Wynn [facility] TRAY DELIVERY AIDE [facility] 1.840.114 350.1.13.10 4.2.7.2.686 [id number] [facility] 2022-10-16 13:45:00 2022-10-16 14:29:12 Outpatient R KRZYSZTOF [facility]IT[facility] [id number] [facility] 2022-10-16 13:45:00 2022-10-16 14:29:12 Office Visit Krzysztof Avitia [facility] TRAY DELIVERY AIDE [facility] 1.840.114 350.1.13.10 4.2.7.2.686 [id number] [facility] 2022-06-22 12:45:00 2022-06-22 12:45:00 Outpatient ROBERT DELGADO EMILY [facility] [id number] [facility] 2022-05-13 18:45:52 2022-05-13 23:59:00 Outpatient R TYRA MARY [facility] [id number] [facility] 2022-05-13 18:45:52 2022-05-13 23:59:00 Hospital Encounter Rahul Downs [facility] 1.840.114 350.1.13.10 4.2.7.2.686 [id number] [facility] 2022-05-13 18:20:00 2022-05-13 19:04:18 Urgent Care Rahul Downs Brittany [facility] 1.84.114 350.1.13.10 4.2.7.2.686 [id number] [facility] 2022-04-28 09:20:00 2022-04-28 10:00:25 Outpatient R CARLO PRIMITIVO [facility] [id number] [facility] 2022-04-28 09:20:00 2022-04-28 10:00:25 Urgent Care Carlo Primitivo [facility] 1.84.114 350.1.13.10 4.2.7.2.686 [id number] [facility] 2022-04-28 00:00:00 2022-04-28 00:00:00 Letter (Out) Provider, Bret Thakur [facility] 1.84.114 350.1.13.10 4.2.7.2.686 [id number] [facility] 2022-04-20 18:20:00 2022-04-20 18:32:22 Outpatient R EUNICE MOORETANY [facility] [id number] [facility] 2022-04-20 18:20:00 2022-04-20 18:32:22 Urgent Care Eunice Mooretany [facility] 1.84.114 350.1.13.10 4.2.7.2.686 [id number] 370 [id number] [facility] 2022-04-05 11:20:00 2022-04-05 11:40:00 Urgent Care Primitivo Matos Lenin Isaacs [facility] MED[facility] OFF[facility] BU[facility] 1.84.114 350.1.13.10 4.2.7.2.686 [id number] [facility] 2022-04-05 11:20:00 2022-04-05 11:20:00 Outpatient R LENIN ISAACS [facility] [id number] [facility] 2022-02-24 00:00:00 2022-02-24 00:00:00 Patient Secure Msg Krzysztof [employer] TRAY DELIVERY AIDE [facility]ILD [facility] 1..114 350.1.13.10 4.2.7.2.686 [id number] [facility] 2022-02-19 13:30:00 2022-02-19 14:27:45 Office Visit Krzysztof [employer] TRAY DELIVERY AIDE [facility] CHILD [facility] 1..114 350.1.13.10 4.2.7.2.686 [id number] [facility] 2022-02-19 13:30:00 2022-02-19 14:27:45 Outpatient R KRZYSZTOF [facility] [id number] [facility] 2022-02-19 13:30:00 2022-02-19 13:30:00 Outpatient R KRZYSZTOF [facility] [id number] [facility] 2022-02-19 13:30:00 2022-02-19 13:30:00 Outpatient R KRZYSZTOF [facility] [id number] [facility] 2022-02-19 00:00:00 2022-02-19 00:00:00 Orders Only Doctor Unassigned, [place] [facility] 1..114 350.1.13.10 4.2.7.2.686 [id number] [facility] 2022-02-04 10:30:00 2022-02-04 10:30:00 Outpatient R KRZYSZTOF [facility] [id number] [facility] 2022-02-04 10:30:00 2022-02-04 10:30:00 Clinical Researcher Visit Lab, Bret-Rmchp Krzysztof [employer] TRAY DELIVERY AIDE [facility] & CHILD [facility] 1..840.114 350.1.13.10 4.2.7.2.686 [id number] [facility] 2022-01-29 15:00:00 2022-01-29 15:00:00 Outpatient R [facility] [id number] [facility] 2022-01-29 15:00:00 2022-01-29 15:00:00 Outpatient R KRZYSZTOF [facility] [id number] [facility] 2022-01-23 00:00:00 2022-01-23 00:00:00 Telephone Krzysztof [employer] TRAY DELIVERY AIDE [facility] & CHILD [facility] 1..840.114 350.1.13.10 4.2.7.2.686 [id number] [facility] 2022-01-22 16:00:00 2022-01-22 16:38:37 Office Visit Krzysztof [employer] TRAY DELIVERY AIDE [facility] CHILD [facility] 1..840.114 350.1.13.10 4.2.7.2.686 [id number] [facility] 2022-01-22 16:00:00 2022-01-22 16:38:37 Outpatient R KR[facility]YSZTOF [facility] [id number] [facility] 2022-01-22 16:00:00 2022-01-22 16:00:00 Outpatient R [facility]ZYSZTOF [facility] [id number] [facility] 2022-01-22 00:00:00 2022-01-22 00:00:00 Orders Only Doctor Unassigned, [place] [facility] 1.0.114 350.1.13.10 4.2.7.2.686 [id number] [facility] 2021-12-23 08:30:00 2021-12-23 08:30:00 Outpatient R [facility]ZTOF [facility] [id number] [facility] 2021-12-15 09:45:00 2021-12-15 09:45:00 Outpatient R [facility]YSZTOF [facility] [id number] [facility] 2021-12-12 00:00:00 2021-12-12 00:00:00 Telephone Krzysztof [employer] TRAY DELIVERY AIDE [facility] & CHILD [facility] 1..114 350.1.13.10 4.2.7.2.686 [id number] [facility] 2021-11-03 17:20:00 2021-11-03 18:39:56 Outpatient R SIRI MURILLO [facility] [id number] [facility] 2021-11-03 17:20:00 2021-11-03 17:40:00 Urgent Care Siri Murillo [facility] 1.114 350.1.13.10 4.2.7.2.686 [id number] [facility] 2021-01-14 00:00:00 2021-01-14 00:00:00 Patient Outreach Erik Staton [facility] 1..114 350.1.13.10 4.2.7.2.686 [id number] [facility] 2020-11-27 15:03:41 2020-11-27 15:34:57 Office Visit Krzysztof [employer] TRAY DELIVERY AIDE [facility] & CHILD [facility] 1..114 350.1.13.10 4.2.7.2.686 [id number] 107 [id number] [facility] 2020-11-27 15:15:00 2020-11-27 15:15:00 Outpatient R KRZYSZTOF AVITIA [facility] [id number] [facility] 2020-11-13 15:42:21 2020-11-13 16:12:21 Office Visit Krzysztof Avitia [facility] TRAY DELIVERY AIDE [facility] & CHILD [facility] ..840.114 350.1.13.10 4.2.7.2.686 [id number] [facility] 2020-11-13 15:45:00 2020-11-13 15:45:00 Outpatient R KRZYSZTOF AVITIA [facility] [id number] [facility] 2020-11-13 08:00:00 2020-11-13 08:00:00 Outpatient ANGUS COONEY [facility] [id number] [facility] 2020-11-13 00:00:00 2020-11-13 00:00:00 Orders Only Doctor Unassigned, Bayonne [facility] .840.114 350.1.13.10 4.2.7.2.686 [id number] [facility] 2020-10-31 10:05:00 2020-10-31 11:01:48 Office Visit Angus Sampson [facility] TRAY DELIVERY AIDE [facility] CHILD [facility] 1..840.114 350.1.13.10 4.2.7.2.686 [id number] [facility] 2020-10-31 10:15:00 2020-10-31 10:15:00 Outpatient ANGUS COONEY [facility] [id number] [facility] 2020-10-03 13:53:24 2020-10-03 14:38:28 Office Visit Angus Sampson [facility] TRAY DELIVERY AIDE [facility] CHILD [facility] 1..840.114 350.1.13.10 4.2.7.2.686 [id number] [facility] 2020-10-03 13:45:00 2020-10-03 13:45:00 Outpatient ANGUS COONEY [facility] [id number] [facility] 2020-09-12 09:20:18 2020-09-12 09:35:18 Routine Visit Adrián Angus Ybarra [facility] TRAY DELIVERY AIDE [facility]ILD [facility] 1.2.840.114 350.1.13.10 4.2.7.2.686 [id number] [facility] 2020-09-12 09:00:00 2020-09-12 09:00:00 Outpatient R ANGELA SAMPSONDEBTheodora [facility] [id number] [facility] 2020-08-30 16:35:00 2020-08-30 18:30:00 Hospital Encounter Jorge Michael [facility] 1..840.114 350.1.13.10 4.2.7.2.686 [id number] [facility] 2020-08-30 10:43:43 2020-08-30 11:04:06 Nurse Visit Visit, Ang-Rmchp Nurse Clif Sampsontheodora [facility] 1..840.114 350.1.13.10 4.2.7.2.686 [id number] [facility] 2020-08-30 10:00:00 2020-08-30 10:00:00 Outpatient ALESHA COONEYCARINA [facility] [id number] [facility] 2020-08-27 12:45:00 2020-08-27 12:45:00 Outpatient R ADRIÁN ANGUS [facility] [id number] [facility] 2020-08-19 17:12:00 2020-08-24 14:07:00 [facility] 1.2.840.114 350.1.13.10 4.2.7.2.686 [id number] [facility] 2020-08-20 10:32:37 2020-08-20 11:34:10 Clinical Researcher Visit 3, [facility] Room [facility] 1.2.840.114 350.1.13.10 4.2.7.2.686 [id number] [facility] 2020-08-20 00:00:00 2020-08-20 00:00:00 Abstract SampsonAngus [facility] TRAY DELIVERY AIDE [facility] & CHILD [facility] 1.2.840.114 350.1.13.10 4.2.7.2.686 [id number] [facility] 2020-08-19 13:30:42 2020-08-19 14:23:11 Routine Visit SampsonAngus [facility] TRAY DELIVERY AIDE [facility] CHILD [facility] 1.2.840.114 350.1.13.10 4.2.7.2.686 [id number] [facility] 2020-08-19 13:45:00 2020-08-19 13:45:00 Outpatient R ADRIÁN ANGUS [facility] [id number] [facility] 2020-08-19 00:00:00 2020-08-19 00:00:00 Orders Only Doctor Unassigned, Bayonne [facility] 1.2.840.114 350.1.13.10 4.2.7.2.686 [id number] [facility] 2020-08-05 13:39:43 2020-08-05 14:19:47 Routine Visit SampsonAngus [facility] TRAY DELIVERY AIDE [facility] CHILD [facility] 1.2.840.114 350.1.13.10 4.2.7.2.686 [id number] [facility] 2020-08-05 13:45:00 2020-08-05 13:45:00 Outpatient ANGUS COONEY [facility] [id number] [facility] 2020-07-25 12:45:00 2020-07-25 12:45:00 [facility] [id number] 2020-07-21 17:36:00 2020-07-21 23:10:00 Hospital Encounter David Hill [facility] 1.2.840.114 350.1.13.10 4.2.7.2.686 [id number] [facility] 2020-07-21 00:00:00 2020-07-21 00:00:00 Nurse Triage AbnerTiny [facility] 1.2.840.114 350.1.13.10 4.2.7.2.686 [id number] [facility] 2020-07-11 11:16:27 2020-07-11 11:45:48 Routine Visit SampsonAngela pinzonnash Ybarra [facility] TRAY DELIVERY AIDE [facility] CHILD [facility] 1.2.840.114 350.1.13.10 4.2.7.2.686 [id number] [facility] 2020-07-11 11:00:00 2020-07-11 11:00:00 Outpatient ANGELA COONEYNASH [facility] [id number] [facility] 2020-06-26 12:45:42 2020-06-26 13:24:12 Routine Visit Sampson, Roscarina Ybarra [facility] TRAY DELIVERY AIDE [facility] CHILD [facility] 1.2.840.114 350.1.13.10 4.2.7.2.686 [id number] [facility] 2020-06-26 12:45:00 2020-06-26 12:45:00 Outpatient Amada SAMPSON ANGUS [facility] [id number] [facility] 2020-06-12 08:12:03 2020-06-12 08:50:14 Routine Visit Angus Sampson [facility] TRAY DELIVERY AIDE [facility] CHILD [facility] 1..840.114 350.1.13.10 4.2.7.2.686 [id number] [facility] 2020-06-12 08:15:00 2020-06-12 08:15:00 Outpatient R ANGUS SAMPSON [facility] [id number] [facility] 2020-06-07 08:45:00 2020-06-07 08:45:00 Outpatient R ANGUS SAMPSON [facility] [id number] [facility] 2020-05-29 10:02:23 2020-05-29 10:48:53 Routine Visit SampsonAngus [facility] TRAY DELIVERY AIDE [facility] CHILD [facility] 1.840.114 350.1.13.10 4.2.7.2.686 [id number] [facility] 2020-05-29 10:15:00 2020-05-29 10:15:00 Outpatient R ANGUS SAMPSON [facility] [id number] [facility] 2020-05-24 14:39:23 2020-05-24 14:54:23 Routine Visit Krzysztof Avitia [facility] TRAY DELIVERY AIDE [facility] CHILD [facility] 1..840.114 350.1.13.10 4.2.7.2.686 [id number] [facility] 2020-05-24 14:45:00 2020-05-24 14:45:00 Outpatient KRZYSZTOF MCCRAY [facility] [id number] [facility] 2020-05-23 00:00:00 2020-05-23 00:00:00 Telephone Angus Sampson [facility] TRAY DELIVERY AIDE [facility]ILD [facility] 1..840.114 350.1.13.10 4.2.7.2.686 [id number] [facility] 2020-05-23 00:00:00 2020-05-23 00:00:00 Patient Secure Msg Doctor Unassigned, Bayonne [facility] TRAY DELIVERY AIDE [facility] CHILD [facility] 1.2.840.114 350.1.13.10 4.2.7.2.686 [id number] [facility] 2020-05-01 10:51:51 2020-05-01 11:06:51 Routine Visit Angus Sampson [facility] TRAY DELIVERY AIDE [facility] CHILD [facility] 1.2.840.114 350.1.13.10 4.2.7.2.686 [id number] 107 [id number] [facility] 2020-05-01 10:45:00 2020-05-01 10:45:00 Outpatient R ANGUS SAMPSON [facility] [id number] [facility] 2020-04-25 09:02:37 2020-04-25 10:17:37 Clinical Researcher Visit Ultrasound, Barbara Mcghee [facility] TRAY DELIVERY AIDE [facility] CHILD [facility] 1.2.840.114 350.1.13.10 4.2.7.2.686 [id number] [facility] 2020-04-25 09:00:00 2020-04-25 09:00:00 Outpatient P [facility] [id number] [facility] 2020-04-25 00:00:00 2020-04-25 00:00:00 Abstract Angus Sampson [facility] TRAY DELIVERY AIDE [facility] CHILD [facility] 1.2.840.114 350.1.13.10 4.2.7.2.686 [id number] [facility] 2020-04-19 00:00:00 2020-04-19 00:00:00 Patient Secure Msg Doctor Unassigned, Bayonne [facility] 1.2.840.114 350.1.13.10 4.2.7.2.686 [id number] [facility] 2020-04-04 00:00:00 2020-04-04 00:00:00 Patient Secure Msg Chela Vences [facility] TRAY DELIVERY AIDE [facility] CHILD [facility] 1.2.840.114 350.1.13.10 4.2.7.2.686 [id number] [facility] 2020-04-04 00:00:00 2020-04-04 00:00:00 Patient Secure Msg Doctor Unassigned, Bayonne [facility] TRAY DELIVERY AIDE [facility] CHILD [facility] 1.2.840.114 350.1.13.10 4.2.7.2.686 [id number] [facility] 2020-04-03 09:08:20 2020-04-03 10:18:57 Routine Visit Angus Sampson [facility] TRAY DELIVERY AIDE [facility] CHILD [facility] 1.2840.114 350.1.13.10 4.2.7.2.686 [id number] [facility] 2020-04-03 09:15:00 2020-04-03 09:15:00 Outpatient R ANGUS SAMPSON [facility] [id number] [facility] 2020-04-03 00:00:00 2020-04-03 00:00:00 Refill Doctor Unassigned, Bayonne [facility] TRAY DELIVERY AIDE [facility] CHILD [facility] 1.2.840.114 350.1.13.10 4.2.7.2.686 [id number] [facility] 2020-03-31 00:00:00 2020-03-31 00:00:00 Refill Doctor Unassigned, Bayonne [facility] TRAY DELIVERY AIDE [facility] CHILD [facility] 1.2.840.114 350.1.13.10 4.2.7.2.686 [id number] [facility] 2020-03-07 15:30:00 2020-03-07 15:30:00 Outpatient R ANGUS SAMPSON [facility] [id number] [facility] 2020-03-07 08:16:01 2020-03-07 14:50:28 Telemedici ne Visit Angus Sampson [facility] TRAY DELIVERY AIDE [facility] CHILD [facility] 1..840.114 350.1.13.10 4.2.7.2.686 [id number] [facility] 2020-02-08 15:30:00 2020-02-08 15:30:00 Outpatient R ANGUS SAMPSON [facility] [id number] [facility] 2020-02-08 13:13:20 2020-02-08 15:27:07 Telemedici ne Visit Angus Sampson [facility] TRAY DELIVERY AIDE [facility] CHILD [facility] 1.840.114 350.1.13.10 4.2.7.2.686 [id number] [facility] 2020-02-07 09:45:00 2020-02-07 09:45:00 Outpatient ANGUS COONEY [facility] [id number] [facility] 2020-01-25 00:00:00 2020-01-25 00:00:00 Telephone Angus Sampson [facility] TRAY DELIVERY AIDE [facility] CHILD [facility] 1..840.114 350.1.13.10 4.2.7.2.686 [id number] [facility] 2020-01-16 07:45:26 2020-01-16 08:00:08 Clinical Researcher Visit Lab, Bret-Rmchp Clif Sampsontheodora [facility] TRAY DELIVERY AIDE [facility] CHILD [facility] 1..840.114 350.1.13.10 4.2.7.2.686 [id number] 107 [id number] [facility] 2020-01-16 07:45:00 2020-01-16 07:45:00 Outpatient R [facility] [id number] [facility] 2020-01-12 00:00:00 2020-01-12 00:00:00 Patient Secure Michelle Velazco [facility] TRAY DELIVERY AIDE [facility] CHILD [facility] 1.2.840.114 350.1.13.10 4.2.7.2.686 [id number] [facility] 2020-01-11 00:00:00 2020-01-11 00:00:00 Telephone Angus Sampson [facility] TRAY DELIVERY AIDE [facility] CHILD [facility] 1.2.840.114 350.1.13.10 4.2.7.2.686 [id number] [facility] 2020-01-10 09:49:54 2020-01-10 10:29:21 Initial Visit Angus Sampson [facility] TRAY DELIVERY AIDE [facility] CHILD [facility] 1.2.840.114 350.1.13.10 4.2.7.2.686 [id number] 107 [id number] [facility] 2020-01-10 09:45:00 2020-01-10 09:45:00 Outpatient R ANGUS SAMPSON [facility] [id number] [facility] 2020-01-10 09:00:00 2020-01-10 09:00:00 Outpatient R [facility] [id number] [facility] 2020-01-10 00:00:00 2020-01-10 00:00:00 Orders Only Doctor Unassigned, [place]onne [facility] 1.2.840.114 350.1.13.10 4.2.7.2.686 [id number] [facility] 2019-09-15 11:26:42 2019-09-15 18:19:00 Emergency X BASHIR URIBE [facility] ERT [id number] [facility] Results Test Description Test Time Test Comments Results Result Co mments Source [facility] [id number] 17:47:00* Test Item Value Reference Range Interpretation Comme nts POCT PREG (test code = 1605) Negative On board controls acceptable with C Line (test code = 3574) Yes POCT PREG LOT # (test code = 3575) POCT PREG TEST DATE ( test code = 3576) [facility] [id number] 17:47:00* Test Item Value Reference Range Interpretation Comme nts POCT PREG (test code = 1605) Negative On board controls acceptable with C Line (test code = 3574) Yes POCT PREG LOT # (test code = 3575) POCT PREG TEST DATE ( test code = 3576) [facility] [id number] 15:20:00* Test Item Value Reference Range Interpretation Comme nts POCT PREG (test code = 1605) Negative On board controls acceptable with C Line (test code = 3574) Yes POCT PREG LOT # (test code = 3575) POCT PREG TEST DATE ( test code = 3576) Lab Interpretation (test cod e = 71508-9) Normal [facility] [id number] 20:54:00* Test Item Value Reference Range Interpretation Comme nts POCT PREG (test code = 1605) Negative On board controls acceptable with C Line (test code = 3574) Yes POCT PREG LOT # (test code = 3575) POCT PREG TEST DATE ( test code = 3576) [facility]IL[facility] IGG/[id number] 16:23:46* Test Item Value Reference Range Interpretation Comme nts Syphilis IgG/IgM (test code = 93949-3) Non-reactive Non-reactive AKIL (test code = AKIL) Non-reactive - No serologic evidence of T. pallidum infection. Cannot exclude incubating or early syphilis. Submit a second specimen in 2-4 weeks if syphilis is clinically suspected. Equivocal - Further testing to follow. Reactive - Further testing to follow. Lab Interpretation (test code = 47502-7) Normal [facility] IMMUNE [id number] 10:54:09* Test Item Value Reference Range Interpretation Comme nts RHIG CANDIDATE? (test code = 5188) No- see comment Patient is not a candidate for RhIg- Patient is Rh Positive.Performed at [facility] Laboratory Services - [facility] Blood [address] [place] [address] [id number] Free: [phone] No. [id number] [facility] Cord [id number] 00:26:35* Test Item Value Reference Range Interpretation Comme nts VENOUS BASE EXCESS, CORD (te st code = 9995710988) -0.8 mEq/L VENOUS PH, CORD (test code = 2862085970) 7.39 7.25-7.45 VENOUS PC02, CORD (test code = 1336281529) 41 27-49 VENOUS PO2, CORD (test code = 2904283455) 30 17-41 VENOUS BICARBONATE, CORD (te st code = 8293356818) 24 12-29 [facility] BranchArterial Cord [id number] 00:25:09* Test Item Value Reference Range Interpretation Comme nts BASE EXCESS, CORD (test code = 2472582194) -5.1 mEq/L AC PH, CORD (BEAKER) (test c ode = 9077712011) 7.43 7.18-7.38 H PC02, CORD (test code = 7067622872) 27 32-66 L PO2, CORD (test code = 7626083372) 87 10-30 H BICARBONATE, CORD (test code = 7947219823) 18 17-27 Lab Interpretation (test cod e = 72514-1) Abnormal [facility] [id number] 17:20:00 Clara Whelan MD ? ? 08/01/2024 ?1:13 PM Central Neuraxial Block Date/Time: 08/01/2024 12:20 PM Performed by: Clara Whelan MDAuthorized by: David Hill MD ?Patient Location: OBEnd Time: 08/01/2024 12:20 PMReason for Block: Labor analgesia and Patient requestStaff: ? ?Resident/ENGINEERING FACULTY MEMBER: Johnathan Headley MD ?Performed by: resident/CRNAPreanesthetic Checklist: patient identified, IV checked, risks and benefits explained, monitors and equipment checked, timeout performed, pre-op evaluation, surgical consent, site marked, ob/surgical consent approval, ob/surgical consent verified and anesthesia consentProcedure: ?Type of Neuraxial: Epidural ?Epidural Description: 1st attempt ? Sterility Prep cap, drape, gloves, hand hygiene and mask ? ?Sedation Level no sedation ?Patient Position: sitting ?Prep: Betadine ? ?Monitoring: continuous pulse ox, heart rate / toco, heart rate and NIBP ?Location: lumbar (1-5) ?Lumbar: L3-L4 ?Approach: midline ? ?Technique: SHEYLA saline ?Guidance with: landmark technique}Epidural/Spinal Humble and/or Catheter: ?Epidural/Spinal Kit: BBraun ?Needle Type: Tuohy ?Needle Gauge: 17 G ?Needle Length: 3.5 in (8.89 cm) ?Needle Insertion Depth: 8 ?Catheter Type: multiport ? ?Catheter Size: 19 G ? ?Catheter at Skin Depth: 12 ?Number of Attempts: 2 ?Test Dose: lidocaine 1.5% with epinephrine 1-to-200,000 and negative ? ?Dose: 3 cc ? ?Catheter Securement Method: clear occlusive dressing, liquid medical adhesive and surgical tapeAssessment: ?Sensory Level: below T10 ?Block Outcome: a full evaluation is pending and patient tolerated procedure well ? ?Procedure Assessment: patient tolerated procedure well with no complicationsNotes: ? Patient identified; pre-procedure verification.Patient prepped and draped in standard sterile fashion using betadine x 3Subcutaneous infiltration with 1% Lidocaine SHEYLA at 8 cm; catheter secured at 12 cm with mastisol, tegaderm x2 and 3-inch clear tape.Aspiration test negative x 3Test dose negativePatient tolerated procedure well with no immediate complications Epidural expectations; PCEA explained and fall precautions given.[facility] Hepatitis B Surface [id number] 16:06:02* Test Item Value Reference Range Interpretation Comme nts HBsAg Semi-Quantitative (mala t code = 5195-3) 0.14 Negative [facility] and Screen - ONCE [id number] 14:51:00 * Test Item Value Reference Range Interpretation Comme nts ABO & RH (test code = 20) O POSITIVE IAT (test code = 1185) Negative [facility] URINALYSIS W SPECIFIC [id number] 14:07:00* Test Item Value Reference Range Interpretation Comme nts POCT U SP GRAV (test code = 3255) . 1.005-1.025 POCT PH U (test code = 3254) 8 mg/dl 5-8 POCT U LEUK EST (test code = 3263) 1+ Negative - Negative POCT U NIT (test code = 3262) Neg Negative - Negati ve POCT U PROT (test code = 3259) Trace Negative - Negat rigoberto POCT U GLU (test code = 3256) Nml Negative - Negati ve POCT U KETONE (test code = 3258) None Negative - Neg ative POCT U UROBILI (test code = 3260) . 0.2-1 POCT U BILI (test code = 3261) . Negative - Negat rigoberto POCT U BLD (test code = 3257) Trace Negative - Negati ve POCT U COLOR (test code = 3266) . POCT U APPEAR (test code = 3267) .. [facility] URINALYSIS W SPECIFIC [id number] 19:33:00* Test Item Value Reference Range Interpretation Comme nts POCT U SP GRAV (test code = 3255) . 1.005-1.025 POCT PH U (test code = 3254) 7 mg/dl 5-8 POCT U LEUK EST (test code = 3263) 1+ Negative - Negative POCT U NIT (test code = 3262) Neg Negative - Negati ve POCT U PROT (test code = 3259) Trace Negative - Negat rigoberto POCT U GLU (test code = 3256) Nml Negative - Negati ve POCT U KETONE (test code = 3258) None Negative - Neg ative POCT U UROBILI (test code = 3260) . 0.2-1 POCT U BILI (test code = 3261) . Negative - Negat rigoberto POCT U BLD (test code = 3257) Trace Negative - Negati ve POCT U COLOR (test code = 3266) POCT U APPEAR (test code = 3267) [facility] URINALYSIS W SPECIFIC [id number] 19:54:00* Test Item Value Reference Range Interpretation Comme nts POCT U SP GRAV (test code = 3255) . 1.005-1.025 POCT PH U (test code = 3254) 5 mg/dl 5-8 POCT U LEUK EST (test code = 3263) 2+ Negative - Negative POCT U NIT (test code = 3262) Neg Negative - Negati ve POCT U PROT (test code = 3259) 1+ Negative - Negat rigoberto POCT U GLU (test code = 3256) Nml Negative - Negati ve POCT U KETONE (test code = 3258) 2+ Negative - Neg ative POCT U UROBILI (test code = 3260) . 0.2-1 POCT U BILI (test code = 3261) . Negative - Negat rigoberto POCT U BLD (test code = 3257) ~50 Negative - Negati ve POCT U COLOR (test code = 3266) . POCT U APPEAR (test code = 3267) ... [facility] W SPECIFIC [id number] 20:09:00* Test Item Value Reference Range Interpretation Comme nts POCT U SP GRAV (test code = 3255) . 1.005-1.025 POCT PH U (test code = 3254) 6 mg/dl 5-8 POCT U LEUK EST (test code = 3263) 2+ Negative - Negative POCT U NIT (test code = 3262) Neg Negative - Negati ve POCT U PROT (test code = 3259) Trace Negative - Negat rigoberto POCT U GLU (test code = 3256) Nml Negative - Negati ve POCT U KETONE (test code = 3258) Neg Negative - Neg ative POCT U UROBILI (test code = 3260) . 0.2-1 POCT U BILI (test code = 3261) . Negative - Negat rigoberto POCT U BLD (test code = 3257) . Negative - Negati ve POCT U COLOR (test code = 3266) Trace POCT U APPEAR (test code = 3267) .. [facility] Acid Ghztc0024-20-01 03:03:30* Test Item Value Reference Range Interpretation Comme nts URIC ACID (test code = 0899426048) 4.3 mg/dL 2.9-6.0 Lab Interpretation (test cod e = 48612-2) Normal [facility]um [id number] 03:03:30* Test Item Value Reference Range Interpretation Comme nts CREATININE (test code = 2160-0) 0.34 mg/dL 0.50-1.04 L eGFR (test code = 26955-2) 148.5 mL/min/1.73m2 CKD-EPI eGFR (2020). Assuming creatinine has been stable day-to-day for at least three months, the eGFR indicates Category G1 (>= 90 mL/min/1.73 m2) Lab Interpretation (test code = 75485-4) Ab[facility]24-[facility]-30 03:03:30* Test Item Value Reference Range Interpretation Comme [facility] AST(SGOT) (test code = 0371279199) 59 U/L 13-40 H Lab Interpretation (test cod e = 66748-9) [facility]2024-06-30 03:03:30* Test Item Value Reference Range Interpretation Comme nts ALTv (test code = 1742-6) 142 U/L 5-35 H Lab Interpretation (test cod e = 78454-6) [facility] [id number] 03:02:49* Test Item Value Reference Range Interpretation Comme nts LDH (test code = 4644858155) 146 U/L 120-246 Lab Interpretation (test cod e = 80613-1) Normal [facility] with [id number] 02:26:46* Test Item Value Reference Range Interpretation Comme nts WBC (test code = 6690-2) 7.58 4.30-11.10 RBC (test code = 789-8) 3.70 3.93-5.25 L HGB (test code = 718-7) 10.8 g/dL 11.6-15.0 L HCT (test code = 4544-3) 31.3 % 35.7-45.2 L MCV (test code = 787-2) 84.6 fL 80.6-95.5 MCH (test code = 785-6) 29.2 pg 25.9-32.8 MCHC (test code = 786-4) 34.5 g/dL 31.6-35.1 RDW-SD (test code = 55487-7) 38.8 fL 39.0-49.9 L RDW-CV (test code = 788-0) 12.7 % 12.0-15.5 PLT (test code = 777-3) 353 166-358 MPV (test code = 04724-1) 10.0 fL 9.5-12.9 NRBC/100 WBC (test code = 6816943351) 0.0 0.0-10.0 NRBC x10^3 (test code = 2558327704) See_Comment [Automated messa ge] The system which generated this result transmitted reference range: 10*3/?L. The reference range was not used to interpret this result as normal/abnormal. GRAN MAT (NEUT) % (test code = 770-8) 62.2 % IMM GRAN % (test code = 9441717237) 0.30 % LYMPH % (test code = 736-9) 28.2 % MONO % (test code = 5905-5) 7.9 % EOS % (test code = 713-8) 1.1 % BASO % (test code = 706-2) 0.3 % GRAN MAT x10^3(ANC) (test code = 7138118993) 4.72 10*3/uL 1.88-7.09 IMM GRAN x10^3 (test code = 5731691186) 0.00-0.06 LYMPH x10^3 (test code = 731-0) 2.14 10*3/uL 1.32-3.29 MONO x10^3 (test code = 742-7) 0.60 10*3/uL 0.33-0.92 EOS x10^3 (test code = 711-2) 0.08 10*3/uL 0.03-0.39 BASO x10^3 (test code = 704-7) 0.01-0.07 Lab Interpretation (test code = 25845-4) Abnormal [facility] URINALYSIS W SPECIFIC [id number] 21:02:00* Test Item Value Reference Range Interpretation Comme nts POCT U SP GRAV (test code = 3255) . 1.005-1.025 POCT PH U (test code = 3254) . 5-8 POCT U LEUK EST (test code = 3263) . Negative - N egative POCT U NIT (test code = 3262) . Negative - Negati ve POCT U PROT (test code = 3259) trace Negative - Negat rigoberto POCT U GLU (test code = 3256) neg Negative - Negati ve POCT U KETONE (test code = 3258) . Negative - Neg ative POCT U UROBILI (test code = 3260) . 0.2-1 POCT U BILI (test code = 3261) . Negative - Negat rigoberto POCT U BLD (test code = 3257) . Negative - Negati ve POCT U COLOR (test code = 3266) . POCT U APPEAR (test code = 3267) [facility] URINALYSIS W SPECIFIC [id number] 13:29:00* Test Item Value Reference Range Interpretation Comme nts POCT U SP GRAV (test code = 3255) 1.005 mg/dl 1.005-1.025 POCT PH U (test code = 3254) 5 mg/dl 5-8 POCT U LEUK EST (test code = 3263) trace Negative - Negative POCT U NIT (test code = 3262) negative Negative - Negati ve POCT U PROT (test code = 3259) trace Negative - Negative POCT U GLU (test code = 3256) negative Negative - Negati ve POCT U KETONE (test code = 3258) negative Negative - Negative POCT U UROBILI (test code = 3260) negative 0.2-1 POCT U BILI (test code = 3261) negative Negative - Negative POCT U BLD (test code = 3257) negative Negative - Negati ve POCT U COLOR (test code = 3266) POCT U APPEAR (test code = 3267) [facility] URINALYSIS W SPECIFIC [id number] 14:54:00* Test Item Value Reference Range Interpretation Comme nts POCT U SP GRAV (test code = 3255) . 1.005-1.025 POCT PH U (test code = 3254) 7 mg/dl 5-8 POCT U LEUK EST (test code = 3263) 1+ Negative - Negative POCT U NIT (test code = 3262) Neg Negative - Negati ve POCT U PROT (test code = 3259) Trace Negative - Negat rigoberto POCT U GLU (test code = 3256) Nml Negative - Negati ve POCT U KETONE (test code = 3258) None Negative - Neg ative POCT U UROBILI (test code = 3260) . 0.2-1 POCT U BILI (test code = 3261) . Negative - Negat rigoberto POCT U BLD (test code = 3257) Trace Negative - Negati ve POCT U COLOR (test code = 3266) . POCT U APPEAR (test code = 3267) . [facility] 19:07:14* Test Item Value Reference Range Interpretation Comme [facility] ALTv (test code = 1742-6) 86 U/L 5-35 H Lab Interpretation (test cod e = 32383-7) [facility]normal [facility] Qooneyapbtszc6025-26-22 19:07:14* Test Item Value Reference Range Interpretation Comme [facility] LDH (test code = 8016407018) 140 U/L 120-246 Lab Interpretation (test cod e = 55339-6) Normal [facility] [id number] 19:07:14* Test Item Value Reference Range Interpretation Comme [facility] URIC ACID (test code = 7780779620) 3.5 mg/dL 2.9-6.0 Lab Interpretation (test cod e = 55595-3) [facility] Os[facility]ubep9[facility] 19:07:14* Test Item Value Reference Range Interpretation Comme [facility] CREATININE (test code = 2160-0) 0.33 mg/dL 0.50-1.04 L eGFR (test code = 23720-8) 150.5 mL/min/1.73m2 CKD-EPI eGFR (2020). Assuming creatinine has been stable day-to-day for at least three months, the eGFR indicates Category G1 (>= 90 mL/min/1.73 m2) Lab Interpretation (test code = 71200-8) [facility]Asparate Amino Transfer)2024-04-05 19:07:14* Test Item Value Reference Range Interpretation Comme nts AST(SGOT) (test code = 8125016314) 51 U/L 13-40 H Lab Interpretation (test cod e = 24524-5) Abnormal [facility] with Xbmwsuvapshf4638-14-73 18:36:29* Test Item Value Reference Range Interpretation Comme nts WBC (test code = 6690-2) 7.70 4.30-11.10 RBC (test code = 789-8) 3.82 3.93-5.25 L HGB (test code = 718-7) 11.3 g/dL 11.6-15.0 L HCT (test code = 4544-3) 33.1 % 35.7-45.2 L MCV (test code = 787-2) 86.6 fL 80.6-95.5 MCH (test code = 785-6) 29.6 pg 25.9-32.8 MCHC (test code = 786-4) 34.1 g/dL 31.6-35.1 RDW-SD (test code = 91849-6) 41.6 fL 39.0-49.9 RDW-CV (test code = 788-0) 13.4 % 12.0-15.5 PLT (test code = 777-3) 327 166-358 MPV (test code = 06391-9) 10.4 fL 9.5-12.9 NRBC/100 WBC (test code = 7282479244) 0.0 0.0-10.0 NRBC x10^3 (test code = 6848370117) See_Comment [Automated messa ge] The system which generated this result transmitted reference range: 10*3/?L. The reference range was not used to interpret this result as normal/abnormal. GRAN MAT (NEUT) % (test code = 770-8) 74.0 % IMM GRAN % (test code = 0397223855) 0.40 % LYMPH % (test code = 736-9) 19.9 % MONO % (test code = 5905-5) 4.4 % EOS % (test code = 713-8) 1.0 % BASO % (test code = 706-2) 0.3 % GRAN MAT x10^3(ANC) (test code = 4770669709) 5.70 10*3/uL 1.88-7.09 IMM GRAN x10^3 (test code = 9776624071) 0.03 10*3/uL 0.00-0.06 LYMPH x10^3 (test code = 731-0) 1.53 10*3/uL 1.32-3.29 MONO x10^3 (test code = 742-7) 0.34 10*3/uL 0.33-0.92 EOS x10^3 (test code = 711-2) 0.08 10*3/uL 0.03-0.39 BASO x10^3 (test code = 704-7) 0.01-0.07 Lab Interpretation (test code = 88353-9) Abnormal [facility] URINALYSIS W SPECIFIC [id number] 14:46:00* Test Item Value Reference Range Interpretation Comme nts POCT U SP GRAV (test code = 3255) . 1.005-1.025 POCT PH U (test code = 3254) . 5-8 POCT U LEUK EST (test code = 3263) . Negative - N egative POCT U NIT (test code = 3262) . Negative - Negati ve POCT U PROT (test code = 3259) trace Negative - Negat rigoberto POCT U GLU (test code = 3256) neg Negative - Negati ve POCT U KETONE (test code = 3258) . Negative - Neg ative POCT U UROBILI (test code = 3260) . 0.2-1 POCT U BILI (test code = 3261) . Negative - Negat rigoberto POCT U BLD (test code = 3257) . Negative - Negati ve POCT U COLOR (test code = 3266) POCT U APPEAR (test code = 3267) [facility] URINALYSIS W SPECIFIC [id number] 14:18:00* Test Item Value Reference Range Interpretation Comme nts POCT U SP GRAV (test code = 3255) . 1.005-1.025 POCT PH U (test code = 3254) 9 mg/dl 5-8 A POCT U LEUK EST (test code = 3263) ++ Negative - Negative POCT U NIT (test code = 3262) neg Negative - Negati ve POCT U PROT (test code = 3259) trace Negative - Negat rigoberto POCT U GLU (test code = 3256) neg Negative - Negati ve POCT U KETONE (test code = 3258) neg Negative - Neg ative POCT U UROBILI (test code = 3260) . 0.2-1 POCT U BILI (test code = 3261) . Negative - Negat rigoberto POCT U BLD (test code = 3257) neg Negative - Negati ve POCT U COLOR (test code = 3266) POCT U APPEAR (test code = 3267) Lab Interpretation (test cod e = 48574-8) Abnormal [facility] URINALYSIS W SPECIFIC [id number] 14:18:00* Test Item Value Reference Range Interpretation Comme nts POCT U SP GRAV (test code = 3255) . 1.005-1.025 POCT PH U (test code = 3254) 9 mg/dl 5-8 A POCT U LEUK EST (test code = 3263) ++ Negative - Negative POCT U NIT (test code = 3262) neg Negative - Negati ve POCT U PROT (test code = 3259) trace Negative - Negat rigoberto POCT U GLU (test code = 3256) neg Negative - Negati ve POCT U KETONE (test code = 3258) neg Negative - Neg ative POCT U UROBILI (test code = 3260) . 0.2-1 POCT U BILI (test code = 3261) . Negative - Negat rigoberto POCT U BLD (test code = 3257) neg Negative - Negati ve POCT U COLOR (test code = 3266) POCT U APPEAR (test code = 3267) Lab Interpretation (test cod e = 70573-8) [facility] [id number] 14:48:00* Test Item Value Reference Range Interpretation Comme nts POCT U SP GRAV (test code = 3255) . 1.005-1.025 POCT PH U (test code = 3254) 6 mg/dl 5-8 POCT U LEUK EST (test code = 3263) 2+ Negative - Negative POCT U NIT (test code = 3262) Neg Negative - Negati ve POCT U PROT (test code = 3259) Trace Negative - Negat rigoberto POCT U GLU (test code = 3256) Nml Negative - Negati ve POCT U KETONE (test code = 3258) 1+ Negative - Neg ative POCT U UROBILI (test code = 3260) . 0.2-1 POCT U BILI (test code = 3261) . Negative - Negat rigoberto POCT U BLD (test code = 3257) Trace Negative - Negati ve POCT U COLOR (test code = 3266) . POCT U APPEAR (test code = 3267) . [facility] URINALYSIS W SPECIFIC [id number] 15:37:00* Test Item Value Reference Range Interpretation Comme nts POCT U SP GRAV (test code = 3255) . 1.005-1.025 POCT PH U (test code = 3254) 8 mg/dl 5-8 POCT U LEUK EST (test code = 3263) 2+ Negative - Negative POCT U NIT (test code = 3262) Neg Negative - Negati ve POCT U PROT (test code = 3259) 1+ Negative - Negat rigoberto POCT U GLU (test code = 3256) Nml Negative - Negati ve POCT U KETONE (test code = 3258) None Negative - Neg ative POCT U UROBILI (test code = 3260) . 0.2-1 POCT U BILI (test code = 3261) . Negative - Negat rigoberto POCT U BLD (test code = 3257) Trace Negative - Negati ve POCT U COLOR (test code = 3266) POCT U APPEAR (test code = 3267) [facility] [id number] 20:45:00* Test Item Value Reference Range Interpretation Comme nts POCT PREG (test code = 1605) Positive On board controls acceptable with C Line (test code = 3574) Yes POCT PREG LOT # (test code = 3575) POCT PREG TEST DATE ( test code = 3576) [facility] Urinalysis w/o Specific [id number] 20:45:00* Test Item Value Reference Range Interpretation Comme nts POCT PH U (test code = 3254) 5 mg/dl 5-8 POCT U LEUK EST (test code = 3263) Trace Negative - Negative POCT U NIT (test code = 3262) Neg Negative - Negati ve POCT U PROT (test code = 3259) Trace Negative - Negat rigoberto POCT U GLU (test code = 3256) Nml Negative - Negati ve POCT U KETONE (test code = 3258) 1+ Negative - Neg ative POCT U BLD (test code = 3257) Trace Negative - Negati ve [facility] [id number] 21:03:54* Test Item Value Reference Range Interpretation Comme nts TROPONIN I (test code = 7370203777) 0.004 ng/mL <=0.034 AKIL (test code = AKIL) Reference (Normal) Range (defined by the 99th percentile reference limit): <= 0.034 ng/mL Note: Cardiac troponin begins to rise 3-4 hours after the onset of ischemia. Repeat in 4-6 hours if the sample was drawn within 3-4 hours of the onset of the symptom and found normal. Diagnosis of myocardial injury is made with acute changes in cTn concentrations with at least one serial sample above the 99th percentile upper reference limit (URL), taken together with the patient's clinical presentation. Biotin has been reported to cause a negative bias, interpret results relative to patient's use of biotin. Lab Interpretation (test code = 55134-7) Normal [facility] [id number] 21:03:54* Test Item Value Reference Range Interpretation Comme nts TROPONIN I (test code = 5094840286) 0.004 ng/mL <=0.034 AKIL (test code = AKIL) Reference (Normal) Range (defined by the 99th percentile reference limit): <= 0.034 ng/mL Note: Cardiac troponin begins to rise 3-4 hours after the onset of ischemia. Repeat in 4-6 hours if the sample was drawn within 3-4 hours of the onset of the symptom and found normal. Diagnosis of myocardial injury is made with acute changes in cTn concentrations with at least one serial sample above the 99th percentile upper reference limit (URL), taken together with the patient's clinical presentation. Biotin has been reported to cause a negative bias, interpret results relative to patient's use of biotin. Lab Interpretation (test code = 48158-5) Normal [facility] without [id number] 20:32:43* Test Item Value Reference Range Interpretation Comme nts WBC (test code = 6690-2) 12.84 4.30-11.10 H RBC (test code = 789-8) 3.78 3.93-5.25 L HGB (test code = 718-7) 11.0 g/dL 11.6-15.0 L HCT (test code = 4544-3) 33.8 % 35.7-45.2 L MCH (test code = 785-6) 29.1 pg 25.9-32.8 MCV (test code = 787-2) 89.4 fL 80.6-95.5 MCHC (test code = 786-4) 32.5 g/dL 31.6-35.1 PLT (test code = 777-3) 367 166-358 H MPV (test code = 65121-5) 9.3 fL 9.5-12.9 L RDW-CV (test code = 788-0) 13.9 % 12.0-15.5 RDW-SD (test code = 60937-6) 44.6 fL 39.0-49.9 NRBC x10^3 (test code = 6350400030) See_Comment [Automated messa ge] The system which generated this result transmitted reference range: 10*3/?L. The reference range was not used to interpret this result as normal/abnormal. NRBC/100 WBC (test code = 1093633355) 0.0 0.0-10.0 IPF % (test code = 0999561581) Lab Interpretation (test code = 18235-4) Abnormal [facility] without [id number] 20:32:43* Test Item Value Reference Range Interpretation Comme nts WBC (test code = 6690-2) 12.84 4.30-11.10 H RBC (test code = 789-8) 3.78 3.93-5.25 L HGB (test code = 718-7) 11.0 g/dL 11.6-15.0 L HCT (test code = 4544-3) 33.8 % 35.7-45.2 L MCH (test code = 785-6) 29.1 pg 25.9-32.8 MCV (test code = 787-2) 89.4 fL 80.6-95.5 MCHC (test code = 786-4) 32.5 g/dL 31.6-35.1 PLT (test code = 777-3) 367 166-358 H MPV (test code = 94245-9) 9.3 fL 9.5-12.9 L RDW-CV (test code = 788-0) 13.9 % 12.0-15.5 RDW-SD (test code = 77999-5) 44.6 fL 39.0-49.9 NRBC x10^3 (test code = 1932328675) See_Comment [Automated messa ge] The system which generated this result transmitted reference range: 10*3/?L. The reference range was not used to interpret this result as normal/abnormal. NRBC/100 WBC (test code = 7838180273) 0.0 0.0-10.0 IPF % (test code = 1500222804) Lab Interpretation (test code = 30098-5) Abnormal [facility] Metabolic Panel (NA, K, CL, CO2, GLUCOSE, BUN, CREATININE, CA)2023-12-21 12:14:59* Test Item Value Reference Range Interpretation Comme nts NA (test code = 5162631279) 136 mmol/L 135-145 K (test code = 2861545731) 3.7 mmol/L 3.5-5.0 CL (test code = 2456134176) 107 mmol/L 98-108 CO2 TOTAL (test code = 6436675266) 22 mmol/L 23-31 L AGAP (test code = 7128634308) 7 2-16 BUN (test code = 1835616034) 6 mg/dL 7-23 L GLUCOSE (test code = 3596585478) 93 mg/dL 70-110 CREATININE (test code = 2160-0) 0.38 mg/dL 0.50-1.04 L CALCIUM (test code = 3847984909) 8.8 mg/dL 8.6-10.6 eGFR (test code = 91997-6) 145.5 mL/min/1.73m2 CKD-EPI eGFR (2020). Assuming creatinine has been stable day-to-day for at least three months, the eGFR indicates Category G1 (>= 90 mL/min/1.73 m2) Lab Interpretation (test code = 65073-1) [facility] (NA, K, CL, CO2, GLUCOSE, BUN, CREATININE, CA)2023-12-21 12:14:59* Test Item Value Reference Range Interpretation Comme nts NA (test code = 6025754763) 136 mmol/L 135-145 K (test code = 4445693640) 3.7 mmol/L 3.5-5.0 CL (test code = 9457142669) 107 mmol/L 98-108 CO2 TOTAL (test code = 8694471788) 22 mmol/L 23-31 L AGAP (test code = 9964586360) 7 2-16 BUN (test code = 1049885951) 6 mg/dL 7-23 L GLUCOSE (test code = 0983061648) 93 mg/dL 70-110 CREATININE (test code = 2160-0) 0.38 mg/dL 0.50-1.04 L CALCIUM (test code = 6106144174) 8.8 mg/dL 8.6-10.6 eGFR (test code = 41362-1) 145.5 mL/min/1.73m2 CKD-EPI eGFR (2020). Assuming creatinine has been stable day-to-day for at least three months, the eGFR indicates Category G1 (>= 90 mL/min/1.73 m2) Lab Interpretation (test code = 64072-9) [facility] ([facility] (ALB,T.PRO,BILI T,BU/BC,ALT,AST,ALK PHOS)2023-12-21 12:14:19* Test Item Value Reference Range Interpretation Comme nts TOTAL BILI (test code = 4508359032) 0.7 mg/dL 0.1-1.1 BILI UNCON (test code = 3729759627) 0.3 mg/dL 0.1-1.1 BILI CONJ (test code = 9887832584) 0.0 mg/dL 0.0-0.3 T PROTEIN (test code = 9087575817) 6.9 g/dL 6.3-8.2 ALBUMIN (test code = 7756468041) 3.7 g/dL 3.5-5.0 ALK PHOS (test code = 5697006593) 84 U/L 34-122 ALTv (test code = 1742-6) 161 U/L 5-35 H AST(SGOT) (test code = 5840593610) 47 U/L 13-40 H Lab Interpretation (test cod e = 93843-3) [facility] (65022[facility] (ALB,T.PRO,BILI T,BU/BC,ALT,AST,ALK PHOS)2023-12-21 12:14:19* Test Item Value Reference Range Interpretation Comme nts TOTAL BILI (test code = 3169812858) 0.7 mg/dL 0.1-1.1 BILI UNCON (test code = 4053489172) 0.3 mg/dL 0.1-1.1 BILI CONJ (test code = 5544729368) 0.0 mg/dL 0.0-0.3 T PROTEIN (test code = 2803468257) 6.9 g/dL 6.3-8.2 ALBUMIN (test code = 2183896439) 3.7 g/dL 3.5-5.0 ALK PHOS (test code = 8077659552) 84 U/L 34-122 ALTv (test code = 1742-6) 161 U/L 5-35 H AST(SGOT) (test code = 9481215166) 47 U/L 13-40 H Lab Interpretation (test cod e = 84222-9) [facility] [id number] 12:08:53* Test Item Value Reference Range Interpretation Comme nts WBC (test code = 6690-2) 7.33 4.30-11.10 RBC (test code = 789-8) 3.88 3.93-5.25 L HGB (test code = 718-7) 11.1 g/dL 11.6-15.0 L HCT (test code = 4544-3) 34.2 % 35.7-45.2 L MCV (test code = 787-2) 88.1 fL 80.6-95.5 MCH (test code = 785-6) 28.6 pg 25.9-32.8 MCHC (test code = 786-4) 32.5 g/dL 31.6-35.1 RDW-SD (test code = 54365-6) 43.8 fL 39.0-49.9 RDW-CV (test code = 788-0) 13.9 % 12.0-15.5 PLT (test code = 777-3) 345 166-358 MPV (test code = 38937-0) 9.8 fL 9.5-12.9 NRBC/100 WBC (test code = 8474504587) 0.0 0.0-10.0 NRBC x10^3 (test code = 2462490854) See_Comment [Automated messa ge] The system which generated this result transmitted reference range: 10*3/?L. The reference range was not used to interpret this result as normal/abnormal. GRAN MAT (NEUT) % (test code = 770-8) 58.8 % IMM GRAN % (test code = 8934388916) 0.50 % LYMPH % (test code = 736-9) 30.3 % MONO % (test code = 5905-5) 7.5 % EOS % (test code = 713-8) 2.5 % BASO % (test code = 706-2) 0.4 % GRAN MAT x10^3(ANC) (test code = 1675512588) 4.31 10*3/uL 1.88-7.09 IMM GRAN x10^3 (test code = 5758192216) 0.04 10*3/uL 0.00-0.06 LYMPH x10^3 (test code = 731-0) 2.22 10*3/uL 1.32-3.29 MONO x10^3 (test code = 742-7) 0.55 10*3/uL 0.33-0.92 EOS x10^3 (test code = 711-2) 0.18 10*3/uL 0.03-0.39 BASO x10^3 (test code = 704-7) 0.03 10*3/uL 0.01-0.07 Lab Interpretation (test code = 99897-3) Abnormal [facility] with [id number] 12:08:53* Test Item Value Reference Range Interpretation Comme nts WBC (test code = 6690-2) 7.33 4.30-11.10 RBC (test code = 789-8) 3.88 3.93-5.25 L HGB (test code = 718-7) 11.1 g/dL 11.6-15.0 L HCT (test code = 4544-3) 34.2 % 35.7-45.2 L MCV (test code = 787-2) 88.1 fL 80.6-95.5 MCH (test code = 785-6) 28.6 pg 25.9-32.8 MCHC (test code = 786-4) 32.5 g/dL 31.6-35.1 RDW-SD (test code = 83593-2) 43.8 fL 39.0-49.9 RDW-CV (test code = 788-0) 13.9 % 12.0-15.5 PLT (test code = 777-3) 345 166-358 MPV (test code = 37456-9) 9.8 fL 9.5-12.9 NRBC/100 WBC (test code = 3836450709) 0.0 0.0-10.0 NRBC x10^3 (test code = 3179307253) See_Comment [Automated messa ge] The system which generated this result transmitted reference range: 10*3/?L. The reference range was not used to interpret this result as normal/abnormal. GRAN MAT (NEUT) % (test code = 770-8) 58.8 % IMM GRAN % (test code = 9256425027) 0.50 % LYMPH % (test code = 736-9) 30.3 % MONO % (test code = 5905-5) 7.5 % EOS % (test code = 713-8) 2.5 % BASO % (test code = 706-2) 0.4 % GRAN MAT x10^3(ANC) (test code = 8596234205) 4.31 10*3/uL 1.88-7.09 IMM GRAN x10^3 (test code = 0042120801) 0.04 10*3/uL 0.00-0.06 LYMPH x10^3 (test code = 731-0) 2.22 10*3/uL 1.32-3.29 MONO x10^3 (test code = 742-7) 0.55 10*3/uL 0.33-0.92 EOS x10^3 (test code = 711-2) 0.18 10*3/uL 0.03-0.39 BASO x10^3 (test code = 704-7) 0.03 10*3/uL 0.01-0.07 Lab Interpretation (test code = 24501-6) [facility]88[facility] (ALB,T.PRO,BILI T,BU/BC,ALT,AST,ALK PHOS)2023-12-20 12:31:31* Test Item Value Reference Range Interpretation Comme nts TOTAL BILI (test code = 1729629374) 1.5 mg/dL 0.1-1.1 H BILI UNCON (test code = 4253559591) 0.9 mg/dL 0.1-1.1 BILI CONJ (test code = 1359288464) 0.0 mg/dL 0.0-0.3 T PROTEIN (test code = 4400604567) 6.9 g/dL 6.3-8.2 ALBUMIN (test code = 8274604937) 3.6 g/dL 3.5-5.0 ALK PHOS (test code = 8634689690) 89 U/L 34-122 ALTv (test code = 1742-6) 227 U/L 5-35 H AST(SGOT) (test code = 9654362969) 168 U/L 13-40 H Lab Interpretation (test cod e = 37692-5) [facility] ([facility]62[facility] (ALB,T.PRO,BILI T,BU/BC,ALT,AST,ALK PHOS)2023-12-20 12:31:31* Test Item Value Reference Range Interpretation Comme nts TOTAL BILI (test code = 7787096120) 1.5 mg/dL 0.1-1.1 H BILI UNCON (test code = 3229525045) 0.9 mg/dL 0.1-1.1 BILI CONJ (test code = 4571541998) 0.0 mg/dL 0.0-0.3 T PROTEIN (test code = 6863389328) 6.9 g/dL 6.3-8.2 ALBUMIN (test code = 8134675955) 3.6 g/dL 3.5-5.0 ALK PHOS (test code = 8857426863) 89 U/L 34-122 ALTv (test code = 1742-6) 227 U/L 5-35 H AST(SGOT) (test code = 2111038823) 168 U/L 13-40 H Lab Interpretation (test cod e = 73051-7) [facility] 12:31:11* Test Item Value Reference Range Interpretation Comme nts LIPASE (test code = 4896309020) 105 U/L 0-220 Lab Interpretation (test cod e = 81653-8) [facility] 12:31:11* Test Item Value Reference Range Interpretation Comme nts LIPASE (test code = 0817401833) 105 U/L 0-220 Lab Interpretation (test cod e = 52639-6) [facility] (NA, K, CL, CO2, GLUCOSE, BUN, CREATININE, CA)2023-12-20 12:31:10* Test Item Value Reference Range Interpretation Comme nts NA (test code = 6830529500) 137 mmol/L 135-145 K (test code = 9269510907) 3.8 mmol/L 3.5-5.0 CL (test code = 8681724277) 107 mmol/L 98-108 CO2 TOTAL (test code = 8269041784) 24 mmol/L 23-31 AGAP (test code = 1693612375) 6 2-16 BUN (test code = 0771237017) 5 mg/dL 7-23 L GLUCOSE (test code = 5919495044) 98 mg/dL 70-110 CREATININE (test code = 2160-0) 0.35 mg/dL 0.50-1.04 L CALCIUM (test code = 0997965268) 8.6 mg/dL 8.6-10.6 eGFR (test code = 78001-8) 148.4 mL/min/1.73m2 CKD-EPI eGFR (2020). Assuming creatinine has been stable day-to-day for at least three months, the eGFR indicates Category G1 (>= 90 mL/min/1.73 m2) Lab Interpretation (test code = 35278-4) Abnormal [facility] Metabolic Panel (NA, K, CL, CO2, GLUCOSE, BUN, CREATININE, CA)2023-12-20 12:31:10* Test Item Value Reference Range Interpretation Comme nts NA (test code = 0807716229) 137 mmol/L 135-145 K (test code = 4111499856) 3.8 mmol/L 3.5-5.0 CL (test code = 5573498382) 107 mmol/L 98-108 CO2 TOTAL (test code = 3144377973) 24 mmol/L 23-31 AGAP (test code = 3725799754) 6 2-16 BUN (test code = 5310141301) 5 mg/dL 7-23 L GLUCOSE (test code = 1732232523) 98 mg/dL 70-110 CREATININE (test code = 2160-0) 0.35 mg/dL 0.50-1.04 L CALCIUM (test code = 2856453751) 8.6 mg/dL 8.6-10.6 eGFR (test code = 39837-9) 148.4 mL/min/1.73m2 CKD-EPI eGFR (2020). Assuming creatinine has been stable day-to-day for at least three months, the eGFR indicates Category G1 (>= 90 mL/min/1.73 m2) Lab Interpretation (test code = 09755-6) Abnormal [facility] with [id number] 12:01:10* Test Item Value Reference Range Interpretation Comme nts WBC (test code = 6690-2) 6.62 4.30-11.10 RBC (test code = 789-8) 3.73 3.93-5.25 L HGB (test code = 718-7) 10.8 g/dL 11.6-15.0 L HCT (test code = 4544-3) 32.8 % 35.7-45.2 L MCV (test code = 787-2) 87.9 fL 80.6-95.5 MCH (test code = 785-6) 29.0 pg 25.9-32.8 MCHC (test code = 786-4) 32.9 g/dL 31.6-35.1 RDW-SD (test code = 49886-0) 43.7 fL 39.0-49.9 RDW-CV (test code = 788-0) 13.6 % 12.0-15.5 PLT (test code = 777-3) 344 166-358 MPV (test code = 73344-9) 9.9 fL 9.5-12.9 NRBC/100 WBC (test code = 9367090325) 0.0 0.0-10.0 NRBC x10^3 (test code = 2684405512) See_Comment [Automated messa ge] The system which generated this result transmitted reference range: 10*3/?L. The reference range was not used to interpret this result as normal/abnormal. GRAN MAT (NEUT) % (test code = 770-8) 59.1 % IMM GRAN % (test code = 6985167680) 0.50 % LYMPH % (test code = 736-9) 30.4 % MONO % (test code = 5905-5) 7.1 % EOS % (test code = 713-8) 2.4 % BASO % (test code = 706-2) 0.5 % GRAN MAT x10^3(ANC) (test code = 4021252350) 3.92 10*3/uL 1.88-7.09 IMM GRAN x10^3 (test code = 9181412172) 0.03 10*3/uL 0.00-0.06 LYMPH x10^3 (test code = 731-0) 2.01 10*3/uL 1.32-3.29 MONO x10^3 (test code = 742-7) 0.47 10*3/uL 0.33-0.92 EOS x10^3 (test code = 711-2) 0.16 10*3/uL 0.03-0.39 BASO x10^3 (test code = 704-7) 0.03 10*3/uL 0.01-0.07 Lab Interpretation (test code = 31730-2) Abnormal [facility] with [id number] 12:01:10* Test Item Value Reference Range Interpretation Comme nts WBC (test code = 6690-2) 6.62 4.30-11.10 RBC (test code = 789-8) 3.73 3.93-5.25 L HGB (test code = 718-7) 10.8 g/dL 11.6-15.0 L HCT (test code = 4544-3) 32.8 % 35.7-45.2 L MCV (test code = 787-2) 87.9 fL 80.6-95.5 MCH (test code = 785-6) 29.0 pg 25.9-32.8 MCHC (test code = 786-4) 32.9 g/dL 31.6-35.1 RDW-SD (test code = 12866-8) 43.7 fL 39.0-49.9 RDW-CV (test code = 788-0) 13.6 % 12.0-15.5 PLT (test code = 777-3) 344 166-358 MPV (test code = 16661-1) 9.9 fL 9.5-12.9 NRBC/100 WBC (test code = 0432222995) 0.0 0.0-10.0 NRBC x10^3 (test code = 6122407140) See_Comment [Automated messa ge] The system which generated this result transmitted reference range: 10*3/?L. The reference range was not used to interpret this result as normal/abnormal. GRAN MAT (NEUT) % (test code = 770-8) 59.1 % IMM GRAN % (test code = 1227677792) 0.50 % LYMPH % (test code = 736-9) 30.4 % MONO % (test code = 5905-5) 7.1 % EOS % (test code = 713-8) 2.4 % BASO % (test code = 706-2) 0.5 % GRAN MAT x10^3(ANC) (test code = 5577763180) 3.92 10*3/uL 1.88-7.09 IMM GRAN x10^3 (test code = 6617256334) 0.03 10*3/uL 0.00-0.06 LYMPH x10^3 (test code = 731-0) 2.01 10*3/uL 1.32-3.29 MONO x10^3 (test code = 742-7) 0.47 10*3/uL 0.33-0.92 EOS x10^3 (test code = 711-2) 0.16 10*3/uL 0.03-0.39 BASO x10^3 (test code = 704-7) 0.03 10*3/uL 0.01-0.07 Lab Interpretation (test code = 83068-5) [id number] (ALB,T.PRO,BILI T,BU/BC,ALT,AST,ALK PHOS)2023-12-19 20:01:04* Test Item Value Reference Range Interpretation Comme nts TOTAL BILI (test code = 3697740992) 2.8 mg/dL 0.1-1.1 H BILI UNCON (test code = 8932163953) 1.1 mg/dL 0.1-1.1 BILI CONJ (test code = 8806574946) 0.7 mg/dL 0.0-0.3 H T PROTEIN (test code = 2823770942) 7.4 g/dL 6.3-8.2 ALBUMIN (test code = 6578701185) 4.1 g/dL 3.5-5.0 ALK PHOS (test code = 1991486999) 95 U/L 34-122 ALTv (test code = 1742-6) 309 U/L 5-35 H AST(SGOT) (test code = 3467365357) 276 U/L 13-40 H Lab Interpretation (test cod e = 30646-3) [facility] (74715[facility] (ALB,T.PRO,BILI T,BU/BC,ALT,AST,ALK PHOS)2023-12-19 20:01:04* Test Item Value Reference Range Interpretation Comme nts TOTAL BILI (test code = 0628222283) 2.8 mg/dL 0.1-1.1 H BILI UNCON (test code = 0156111554) 1.1 mg/dL 0.1-1.1 BILI CONJ (test code = 0022197190) 0.7 mg/dL 0.0-0.3 H T PROTEIN (test code = 7333713514) 7.4 g/dL 6.3-8.2 ALBUMIN (test code = 5265516250) 4.1 g/dL 3.5-5.0 ALK PHOS (test code = 0641822191) 95 U/L 34-122 ALTv (test code = 1742-6) 309 U/L 5-35 H AST(SGOT) (test code = 1378142884) 276 U/L 13-40 H Lab Interpretation (test cod e = 07695-7) [facility] 20:00:43* Test Item Value Reference Range Interpretation Comme nts LIPASE (test code = 9420246351) 210 U/L 0-220 Lab Interpretation (test cod e = 47396-4) Normal [facility] 20:00:43* Test Item Value Reference Range Interpretation Comme nts LIPASE (test code = 8459099986) 210 U/L 0-220 Lab Interpretation (test cod e = 55526-0) Normal [facility] with [id number] 19:45:28* Test Item Value Reference Range Interpretation Comme nts WBC (test code = 6690-2) 5.92 4.30-11.10 RBC (test code = 789-8) 3.99 3.93-5.25 HGB (test code = 718-7) 11.4 g/dL 11.6-15.0 L HCT (test code = 4544-3) 34.8 % 35.7-45.2 L MCV (test code = 787-2) 87.2 fL 80.6-95.5 MCH (test code = 785-6) 28.6 pg 25.9-32.8 MCHC (test code = 786-4) 32.8 g/dL 31.6-35.1 RDW-SD (test code = 23439-0) 43.1 fL 39.0-49.9 RDW-CV (test code = 788-0) 13.7 % 12.0-15.5 PLT (test code = 777-3) 395 166-358 H MPV (test code = 54750-0) 9.9 fL 9.5-12.9 NRBC/100 WBC (test code = 4526129425) 0.0 0.0-10.0 NRBC x10^3 (test code = 3414775161) See_Comment [Automated messa ge] The system which generated this result transmitted reference range: 10*3/?L. The reference range was not used to interpret this result as normal/abnormal. GRAN MAT (NEUT) % (test code = 770-8) 60.6 % IMM GRAN % (test code = 0145098710) 0.30 % LYMPH % (test code = 736-9) 29.6 % MONO % (test code = 5905-5) 7.1 % EOS % (test code = 713-8) 1.9 % BASO % (test code = 706-2) 0.5 % GRAN MAT x10^3(ANC) (test code = 5493754410) 3.59 10*3/uL 1.88-7.09 IMM GRAN x10^3 (test code = 5690701507) 0.00-0.06 LYMPH x10^3 (test code = 731-0) 1.75 10*3/uL 1.32-3.29 MONO x10^3 (test code = 742-7) 0.42 10*3/uL 0.33-0.92 EOS x10^3 (test code = 711-2) 0.11 10*3/uL 0.03-0.39 BASO x10^3 (test code = 704-7) 0.03 10*3/uL 0.01-0.07 Lab Interpretation (test code = 66396-0) Abnormal [facility] with [id number] 19:45:28* Test Item Value Reference Range Interpretation Comme nts WBC (test code = 6690-2) 5.92 4.30-11.10 RBC (test code = 789-8) 3.99 3.93-5.25 HGB (test code = 718-7) 11.4 g/dL 11.6-15.0 L HCT (test code = 4544-3) 34.8 % 35.7-45.2 L MCV (test code = 787-2) 87.2 fL 80.6-95.5 MCH (test code = 785-6) 28.6 pg 25.9-32.8 MCHC (test code = 786-4) 32.8 g/dL 31.6-35.1 RDW-SD (test code = 33567-4) 43.1 fL 39.0-49.9 RDW-CV (test code = 788-0) 13.7 % 12.0-15.5 PLT (test code = 777-3) 395 166-358 H MPV (test code = 40165-5) 9.9 fL 9.5-12.9 NRBC/100 WBC (test code = 5767714030) 0.0 0.0-10.0 NRBC x10^3 (test code = 3265732595) See_Comment [Automated messa ge] The system which generated this result transmitted reference range: 10*3/?L. The reference range was not used to interpret this result as normal/abnormal. GRAN MAT (NEUT) % (test code = 770-8) 60.6 % IMM GRAN % (test code = 0005582545) 0.30 % LYMPH % (test code = 736-9) 29.6 % MONO % (test code = 5905-5) 7.1 % EOS % (test code = 713-8) 1.9 % BASO % (test code = 706-2) 0.5 % GRAN MAT x10^3(ANC) (test code = 9908892758) 3.59 10*3/uL 1.88-7.09 IMM GRAN x10^3 (test code = 0442375638) 0.00-0.06 LYMPH x10^3 (test code = 731-0) 1.75 10*3/uL 1.32-3.29 MONO x10^3 (test code = 742-7) 0.42 10*3/uL 0.33-0.92 EOS x10^3 (test code = 711-2) 0.11 10*3/uL 0.03-0.39 BASO x10^3 (test code = 704-7) 0.03 10*3/uL 0.01-0.07 Lab Interpretation (test code = 84470-5) Abnormal [facility] GALL [id number] 20:49:29Indication: RUQ pain, r/o cholecystitis ? Comparison: CT abdomen and pelvis 12/08/2023 RL: 6200 ORDERING PHYSICIAN: ?QUIQUE JUNE TECHNIQUE: ?Real-time sonographic images of the abdomen were obtained.Spectral and color Doppler was obtained. FINDINGS: ?The liver demonstrates increased echogenicity of the liverwithout focal lesion. No intrahepatic ductal dilatation is found. ? The common bile duct is not dilated, measuring 4.8 mm. There are no stonesin the gallbladder. Gallbladder is distended. The gallbladder wall measures1.8 mm. No pericholecystic fluid seen. Positive sonographic Ramirez's signidentified. No ascites identified. Aorta and IVC are within normal limits.[facility] 2023-12-18 20:49:29Indication: RUQ pain, r/o cholecystitis ? Comparison: CT abdomen and pelvis 12/08/2023 RL: 6200 ORDERING PHYSICIAN: ?QUIQUE JUNE TECHNIQUE: ?Real-time sonographic images of the abdomen were obtained.Spectral and color Doppler was obtained. FINDINGS: ?The liver demonstrates increased echogenicity of the liverwithout focal lesion. No intrahepatic ductal dilatation is found. ? The common bile duct is not dilated, measuring 4.8 mm. There are no stonesin the gallbladder. Gallbladder is distended. The gallbladder wall measures1.8 mm. No pericholecystic fluid seen. Positive sonographic Ramirez's signidentified. No ascites identified. Aorta and IVC are within normal limits. [facility]. METABOLIC PANEL ([id number])2023-12-18 18:58:21* Test Item Value Reference Range Interpretation Comme nts NA (test code = 8826485616) 137 mmol/L 135-145 K (test code = 3583574605) 3.7 mmol/L 3.5-5.0 CL (test code = 7283384169) 106 mmol/L 98-108 CO2 TOTAL (test code = 5968676312) 24 mmol/L 23-31 AGAP (test code = 5029047922) 7 2-16 BUN (test code = 1997277063) 7 mg/dL 7-23 GLUCOSE (test code = 3507985749) 124 mg/dL 70-110 H CREATININE (test code = 2160-0) 0.36 mg/dL 0.50-1.04 L TOTAL BILI (test code = 5616301962) 0.8 mg/dL 0.1-1.1 CALCIUM (test code = 0063771898) 9.5 mg/dL 8.6-10.6 T PROTEIN (test code = 4564189052) 7.7 g/dL 6.3-8.2 ALBUMIN (test code = 8286658305) 4.2 g/dL 3.5-5.0 ALK PHOS (test code = 8203931968) 74 U/L 34-122 ALTv (test code = 1742-6) 67 U/L 5-35 H AST(SGOT) (test code = 1143640611) 83 U/L 13-40 H eGFR (test code = 45799-9) 147.4 mL/min/1.73m2 CKD-EPI eGFR (2020). Assuming creatinine has been stable day-to-day for at least three months, the eGFR indicates Category G1 (>= 90 mL/min/1.73 m2) Lab Interpretation (test code = 23001-5) [facility] 18:58:21* Test Item Value Reference Range Interpretation Comme nts LIPASE (test code = 7143079451) 87 U/L 0-220 Lab Interpretation (test cod e = 47527-5) [facility]OLIC PAN[facility] ([id number])2023-12-18 18:58:21* Test Item Value Reference Range Interpretation Comme nts NA (test code = 7308999663) 137 mmol/L 135-145 K (test code = 4797792345) 3.7 mmol/L 3.5-5.0 CL (test code = 6364880747) 106 mmol/L 98-108 CO2 TOTAL (test code = 5258165299) 24 mmol/L 23-31 AGAP (test code = 3050763600) 7 2-16 BUN (test code = 8643269752) 7 mg/dL 7-23 GLUCOSE (test code = 8546000531) 124 mg/dL 70-110 H CREATININE (test code = 2160-0) 0.36 mg/dL 0.50-1.04 L TOTAL BILI (test code = 3612738467) 0.8 mg/dL 0.1-1.1 CALCIUM (test code = 9743253644) 9.5 mg/dL 8.6-10.6 T PROTEIN (test code = 6796244817) 7.7 g/dL 6.3-8.2 ALBUMIN (test code = 5505626827) 4.2 g/dL 3.5-5.0 ALK PHOS (test code = 2428874603) 74 U/L 34-122 ALTv (test code = 1742-6) 67 U/L 5-35 H AST(SGOT) (test code = 2319207548) 83 U/L 13-40 H eGFR (test code = 03090-8) 147.4 mL/min/1.73m2 CKD-EPI eGFR (2020). Assuming creatinine has been stable day-to-day for at least three months, the eGFR indicates Category G1 (>= 90 mL/min/1.73 m2) Lab Interpretation (test code = 58934-9) [facility]normal [facility] 18:58:21* Test Item Value Reference Range Interpretation Comme nts LIPASE (test code = 1692529270) 87 U/L 0-220 Lab Interpretation (test cod e = 39661-8) [facility] [id number] 18:41:39* Test Item Value Reference Range Interpretation Comme nts WBC (test code = 6690-2) 10.69 4.30-11.10 RBC (test code = 789-8) 4.06 3.93-5.25 HGB (test code = 718-7) 11.7 g/dL 11.6-15.0 HCT (test code = 4544-3) 34.8 % 35.7-45.2 L MCV (test code = 787-2) 85.7 fL 80.6-95.5 MCH (test code = 785-6) 28.8 pg 25.9-32.8 MCHC (test code = 786-4) 33.6 g/dL 31.6-35.1 RDW-SD (test code = 06025-8) 41.6 fL 39.0-49.9 RDW-CV (test code = 788-0) 13.3 % 12.0-15.5 PLT (test code = 777-3) 375 166-358 H MPV (test code = 61470-1) 9.4 fL 9.5-12.9 L NRBC/100 WBC (test code = 6731308576) 0.0 0.0-10.0 NRBC x10^3 (test code = 4168581348) See_Comment [Automated messa ge] The system which generated this result transmitted reference range: 10*3/?L. The reference range was not used to interpret this result as normal/abnormal. GRAN MAT (NEUT) % (test code = 770-8) 76.0 % IMM GRAN % (test code = 5775063342) 0.50 % LYMPH % (test code = 736-9) 17.2 % MONO % (test code = 5905-5) 5.1 % EOS % (test code = 713-8) 0.9 % BASO % (test code = 706-2) 0.3 % GRAN MAT x10^3(ANC) (test code = 6600484798) 8.12 10*3/uL 1.88-7.09 H IMM GRAN x10^3 (test code = 0353165000) 0.05 10*3/uL 0.00-0.06 LYMPH x10^3 (test code = 731-0) 1.84 10*3/uL 1.32-3.29 MONO x10^3 (test code = 742-7) 0.55 10*3/uL 0.33-0.92 EOS x10^3 (test code = 711-2) 0.10 10*3/uL 0.03-0.39 BASO x10^3 (test code = 704-7) 0.03 10*3/uL 0.01-0.07 Lab Interpretation (test code = 15306-4) Abnormal [facility] WITH [id number] 18:41:39* Test Item Value Reference Range Interpretation Comme nts WBC (test code = 6690-2) 10.69 4.30-11.10 RBC (test code = 789-8) 4.06 3.93-5.25 HGB (test code = 718-7) 11.7 g/dL 11.6-15.0 HCT (test code = 4544-3) 34.8 % 35.7-45.2 L MCV (test code = 787-2) 85.7 fL 80.6-95.5 MCH (test code = 785-6) 28.8 pg 25.9-32.8 MCHC (test code = 786-4) 33.6 g/dL 31.6-35.1 RDW-SD (test code = 47216-7) 41.6 fL 39.0-49.9 RDW-CV (test code = 788-0) 13.3 % 12.0-15.5 PLT (test code = 777-3) 375 166-358 H MPV (test code = 02416-9) 9.4 fL 9.5-12.9 L NRBC/100 WBC (test code = 1877907596) 0.0 0.0-10.0 NRBC x10^3 (test code = 5628648376) See_Comment [Automated messa ge] The system which generated this result transmitted reference range: 10*3/?L. The reference range was not used to interpret this result as normal/abnormal. GRAN MAT (NEUT) % (test code = 770-8) 76.0 % IMM GRAN % (test code = 9503364002) 0.50 % LYMPH % (test code = 736-9) 17.2 % MONO % (test code = 5905-5) 5.1 % EOS % (test code = 713-8) 0.9 % BASO % (test code = 706-2) 0.3 % GRAN MAT x10^3(ANC) (test code = 8098685267) 8.12 10*3/uL 1.88-7.09 H IMM GRAN x10^3 (test code = 1139052012) 0.05 10*3/uL 0.00-0.06 LYMPH x10^3 (test code = 731-0) 1.84 10*3/uL 1.32-3.29 MONO x10^3 (test code = 742-7) 0.55 10*3/uL 0.33-0.92 EOS x10^3 (test code = 711-2) 0.10 10*3/uL 0.03-0.39 BASO x10^3 (test code = 704-7) 0.03 10*3/uL 0.01-0.07 Lab Interpretation (test code = 54029-7) [facility] [id number] 18:16:00* Test Item Value Reference Range Interpretation Comme nts POCT PREG (test code = 1605) Positive On board controls acceptable with C Line (test code = 3574) Yes POCT PREG LOT # (test code = 3575) [id number] POCT PREG TEST DATE ( test code = 3576) 2024-11-29 Lab Interpretation (test cod e = 23264-7) [facility] [id number] 18:16:00* Test Item Value Reference Range Interpretation Comme nts POCT PREG (test code = 1605) Positive On board controls acceptable with C Line (test code = 3574) Yes POCT PREG LOT # (test code = 3575) [id number] POCT PREG TEST DATE ( test code = 3576) 2024-11-29 Lab Interpretation (test cod e = 45716-4) Normal [facility] ABDOMEN PELVIS W [id number] 01:41:20Exam: CT Abdomen and Pelvis With Contrast, 12/08/2023 6:30 PM. Ordering Physician: SARAH CUADRA. History: Abdominal abscess/infection suspected . Comparison: None. Technique: CT abdomen and pelvis was obtained with intravenous contrast. CTwas performed according to ALARA (As Low As Reasonably Achievable). Technical Quality: Adequate. Findings: LOWER CHEST:Normal. ABDOMEN/PELVIS:Liver: Normal.Gallbladder/biliary: Distended with layering sludge and/or small stones. Nobiliary ductal dilation.Pancreas: Normal.Spleen: Normal. Adrenal glands: Normal.Kidneys and ureters: Normal.Bladder: Normal.Reproductive organs: Corpus luteum on the left Stomach/bowel: Lower esophagus and stomach are normal.Small bowel isnormal. Appendix is normal. Decompressed distal bowel. Lymph nodes: Prominent number of nonenlarged mesenteric nodesPeritoneum: No intraperitoneal free air. No intraperitoneal free fluid.Vessels: Normal. MUSCULOSKELETAL:Bones: No acute osseous abnormality.Soft tissues: Unremarkable.[facility] METABOLIC PANEL ([id number])2023-12-09 01:02:25* Test Item Value Reference Range Interpretation Comme nts NA (test code = 5228397734) 137 mmol/L 135-145 K (test code = 8723869510) 3.9 mmol/L 3.5-5.0 CL (test code = 9428777418) 104 mmol/L 98-108 CO2 TOTAL (test code = 7333346863) 24 mmol/L 23-31 AGAP (test code = 2816157498) 9 2-16 BUN (test code = 3674684350) 9 mg/dL 7-23 GLUCOSE (test code = 7480315231) 96 mg/dL 70-110 CREATININE (test code = 2160-0) 0.47 mg/dL 0.50-1.04 L TOTAL BILI (test code = 9782765908) 0.5 mg/dL 0.1-1.1 CALCIUM (test code = 9299129795) 9.5 mg/dL 8.6-10.6 T PROTEIN (test code = 1393660989) 8.2 g/dL 6.3-8.2 ALBUMIN (test code = 4486266261) 4.6 g/dL 3.5-5.0 ALK PHOS (test code = 2535461289) 79 U/L 34-122 ALTv (test code = 1742-6) 32 U/L 5-35 AST(SGOT) (test code = 5429543976) 29 U/L 13-40 eGFR (test code = 26180-4) 138.2 mL/min/1.73m2 CKD-EPI eGFR (2020). Assuming creatinine has been stable day-to-day for at least three months, the eGFR indicates Category G1 (>= 90 mL/min/1.73 m2) Lab Interpretation (test code = 80780-9) [facility] 01:01:42* Test Item Value Reference Range Interpretation Comme nts LIPASE (test code = 4581198259) 96 U/L 0-220 Lab Interpretation (test cod e = 98073-8) [facility] [id number] 00:50:25* Test Item Value Reference Range Interpretation Comme nts WBC (test code = 6690-2) 9.93 4.30-11.10 RBC (test code = 789-8) 4.32 3.93-5.25 HGB (test code = 718-7) 12.4 g/dL 11.6-15.0 HCT (test code = 4544-3) 36.7 % 35.7-45.2 MCV (test code = 787-2) 85.0 fL 80.6-95.5 MCH (test code = 785-6) 28.7 pg 25.9-32.8 MCHC (test code = 786-4) 33.8 g/dL 31.6-35.1 RDW-SD (test code = 29167-7) 40.2 fL 39.0-49.9 RDW-CV (test code = 788-0) 13.1 % 12.0-15.5 PLT (test code = 777-3) 423 166-358 H MPV (test code = 80221-5) 9.7 fL 9.5-12.9 NRBC/100 WBC (test code = 9221461066) 0.0 0.0-10.0 NRBC x10^3 (test code = 6152799972) See_Comment [Automated messa ge] The system which generated this result transmitted reference range: 10*3/?L. The reference range was not used to interpret this result as normal/abnormal. GRAN MAT (NEUT) % (test code = 770-8) 61.9 % IMM GRAN % (test code = 9034399871) 0.20 % LYMPH % (test code = 736-9) 30.2 % MONO % (test code = 5905-5) 6.2 % EOS % (test code = 713-8) 1.1 % BASO % (test code = 706-2) 0.4 % GRAN MAT x10^3(ANC) (test code = 8936248308) 6.14 10*3/uL 1.88-7.09 IMM GRAN x10^3 (test code = 4189474602) 0.00-0.06 LYMPH x10^3 (test code = 731-0) 3.00 10*3/uL 1.32-3.29 MONO x10^3 (test code = 742-7) 0.62 10*3/uL 0.33-0.92 EOS x10^3 (test code = 711-2) 0.11 10*3/uL 0.03-0.39 BASO x10^3 (test code = 704-7) 0.04 10*3/uL 0.01-0.07 Lab Interpretation (test code = 73278-0) [id number]:17:00* Test Item Value Reference Range Interpretation Comme nts POCT PREG (test code = 1605) Negative On board controls acceptable with C Line (test code = 3574) Yes POCT PREG LOT # (test code = 3575) [id number] POCT PREG TEST DATE ( test code = 3576) 01-02-2025 Lab Interpretation (test cod e = 24056-9) [facility] [id number] 20:23:00* Test Item Value Reference Range Interpretation Comme nts POCT PREG (test code = 1605) Negative On board controls acceptable with C Line (test code = 3574) Yes POCT PREG LOT # (test code = 3575) POCT PREG TEST DATE ( test code = 3576) [facility] [id number] 20:23:00* Test Item Value Reference Range Interpretation Comme nts POCT PREG (test code = 1605) Negative On board controls acceptable with C Line (test code = 3574) Yes POCT PREG LOT # (test code = 3575) POCT PREG TEST DATE ( test code = 3576) [facility] [id number] 06:51:53* Test Item Value Reference Range Interpretation Comme nts HIV Semi-quantitative (test code = 68276-8) 0.19 Negative AKIL (test code = AKIL) Non-reactive for HIV-1 antigen and HIV-1/HIV-2 antibodies. ?No laboratory evidence of HIV infection. ?Repeat in 2-4 weeks if acute HIV infection is suspected. [facility] WITH [id number] 06:51:53* Test Item Value Reference Range Interpretation Comme nts HIV Semi-quantitative (test code = 89749-6) 0.19 Negative AKIL (test code = AKIL) Non-reactive for HIV-1 antigen and HIV-1/HIV-2 antibodies. ?No laboratory evidence of HIV infection. ?Repeat in 2-4 weeks if acute HIV infection is suspected. [facility] [id number] 15:44:00* Test Item Value Reference Range Interpretation Comme nts POCT PREG (test code = 1605) Negative On board controls acceptable with C Line (test code = 3574) Yes POCT PREG LOT # (test code = 3575) POCT PREG TEST DATE ( test code = 3576) [facility] [id number] 15:44:00* Test Item Value Reference Range Interpretation Comme nts POCT PREG (test code = 1605) Negative On board controls acceptable with C Line (test code = 3574) Yes POCT PREG LOT # (test code = 3575) POCT PREG TEST DATE ( test code = 3576) [facility] Consult Notes Date/Time Note Provider Source 2023-12-19 09:23:18 General surgery consult 23 year old woman with presentation of RUQ pain. Patient has had several episodes of this pain over the last several months. She was seen in the ER here about 2 weeks ago for similar pain and CT scan suggested acute cholecystitis. Se refused surgery at that time. She represented yesterday withsimilar RUQ pain. Work-up in the ER demonstrated her to now be and U/S and CT suggested acute cholecystitis. She was admitted [facility] for monitoring and management of her acute cholecysytitis with IV ABx. No nausea or vomiting. She is feeling better this am but still with some RUQ discomfort. PMH Mild preeclampsia () Morbid obesity Genital herpes No previous abd surgery PE Lungs clear Cor RRR Abd soft minimally tender in the RUQ with no rebound or guarding. Ext nontender no edema. Full ROM Neuro intact CT scan 12/08/23 Exam: CT Abdomen and Pelvis With Contrast, 12/08/2023 6:30 PM. Ordering Physician: SARAH CUADRA. History: Abdominal abscess/infection suspected . Comparison: None. Technique: CT abdomen and pelvis was obtained with intravenous contrast. CT was performed according to ALARA (As Low As Reasonably Achievable). Technical Quality: Adequate. Findings: LOWER CHEST: Normal. ABDOMEN/PELVIS: Liver: Normal. Gallbladder/biliary: Distended with layering sludge and/or small stones. No biliary ductal dilation. Pancreas: Normal. Spleen: Normal. Adrenal glands: Normal. Kidneys and ureters: Normal. Bladder: Normal. Reproductive organs: Corpus luteum on the left Stomach/bowel: Lower esophagus and stomach are normal. Small bowel is normal. Appendix is normal. Decompressed distal bowel. Lymph nodes: Prominent number of nonenlarged mesenteric nodes Peritoneum: No intraperitoneal free air. No intraperitoneal free fluid. Vessels: Normal. MUSCULOSKELETAL: Bones: No acute osseous abnormality. Soft tissues: Unremarkable. IMPRESSION Impression: 1. Distended gallbladder with stones. No additional evidence for acute cholecystitis. 2. Reactive mesenteric nodes in the setting of decompressed distal large bowel likely related to a gastroenteric illness. RL: 1825 End of Report Ultrasound 12/18/23 Narrative & Impression Indication: RUQ pain, r/o cholecystitis Comparison: CT abdomen and pelvis 12/08/2023 RL: 6200 ORDERING PHYSICIAN: QUIQUE STATON TECHNIQUE: Real-time sonographic images of the abdomen were obtained. Spectral and color Doppler was obtained. FINDINGS: The liver demonstrates increased echogenicity of the liver without focal lesion. No intrahepatic ductal dilatation is found. The common bile duct is not dilated, measuring 4.8 mm. There are no stones in the gallbladder. Gallbladder is distended. The gallbladder wall measures 1.8 mm. No pericholecystic fluid seen. Positive sonographic Ramirez's sign identified. No ascites identified. Aorta and IVC are within normal limits. IMPRESSION 1. Cholelithiasis and gallbladder distention and positive sonographic Ramirez sign without gallbladder wall thickening Additional findings of cholecystitis. 2. Mild increased echogenicity of the liver related to liver steatosis. Labs WBC 10.69 HCT 34.8 Plt 375 Bili 0.8 AlkP 74 ALT 67 AST 83 Lipase 87 A/P: Acute cholecystitis vs biliary colic. In view of recurrent symptoms and would recommend Lap Gianna during this admission. There is an increase risk of loss with surgery which was explained to her but the data currently demonstrates worse outcomes with not treating biliary disease than with surgery in any trimester. Will discuss with Dr Whelan but should be able to do her surgery tomorrow. Please check WBC and LFTS, lipase today. Keep NPO after MN but can have clears and bland regular diet today. Justice [facility] ST[facility] - Health History and Physical Notes Date/Time Note Provider Source 2024-10-05 12:30:04 [employer] MECH[employer]IC PRE-OP HISTORY & PHYSICAL NOTE Date of Service: 10/05/2024 Chief Complaint: Scheduled surgery: CKC HPI Mimi Jernigan is a 24 year old who presents for scheduled CKC. Dyplasia hx: 12/2022: Pap ASCUS 11/2023: Pap HSIL 12/2023: Colpo ANABELA 3 Patient has history of dysplasia as above and had an in July. Patient denies changes in medical history since pre-operative evaluation on 09/19/24. Current Medications: No current facility-administered medications for this encounter. Home Medications: Medications Prior to Admission Medication Sig Dispense Refill Last Dose docusate 100 mg capsule Take 2 capsules by mouth once daily as needed for Constipation. 60 capsule 1 Not Taking ferrous sulfate 325 mg (65 mg iron) tablet Take 1 tablet by mouth in the morning. 30 tablet 2 Not Taking ibuprofen 800 mg tablet Take 1 tablet by mouth every 8 (eight) hours as needed (pain). Take with food or milk. 21 tablet 0 Not Taking [id number] fum-folic 27 mg iron- 1 mg folic tablet Take 1 tablet by mouth in the morning. 100 tablet 3 Not Taking valACYclovir 500 mg tablet Take 1 tablet by mouth in the morning and 1 tablet in the evening. 60 tablet 0 Not Taking Allergies: Patient has no known allergies. 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 Pt feels safe at home. No passive smoke exposure. 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), grade 3 ANABELA, on biopsy of cervix Gestational hypertension without significant proteinuria, Surgical History: Past Surgical History: Procedure Laterality Date LAPAROSCOPIC CHOLECYSTECTOMY N/A 12/21/2023 Surgeon: Kiah Whelan MD; Location: [facility] [place] OB History Para Term AB Living 3 2 2 0 1 2 SAB IAB Ectopic Multiple Live Births 1 0 0 0 2 # Outcome Date GA Lbr Robin/2nd Weight Sex Type Anes PTL Lv 3 Term 08/01/24 37w0d 2850 g M NORMAL SPONT EPI VICKI 2 SAB 12/08/20 1 Term 08/22/20 37w0d 2850 g M NORMAL SPONT EPI N VICKI Comments: Time of : 10:18 PM Maternal Age: 19; :1; Parity:1 Mother's Blood Type:O pos Baby's Blood Type:O pos, DANAY negative Maternal Serological Test:normal Maternal Group B Strep Screening:negative; Adequate Treatment:not applicable Complications: Pre-eclampsia ROS: Constitutional: negative Eyes: negative ENT/Mouth: negative Cardiovascular: negative Respiratory: negative Gastrointestinal:negative Genitourinary: negative Musculoskeletal: negative Vital Signs BP 123/73 | Pulse 85 | Temp 36.7 ?C (98.1 ?F) (Tympanic) | Resp 16 | Ht 1.626 m (5' 4") | Wt 108.4 kg (238 lb 15.7 oz) | LMP 08/29/2024 (Approximate) | SpO2 95% | BMI 41.02 kg/m? Physical Exam: Constitutional: alert, no apparent distress, appearing age appropriate Respiratory: good inspiratory effort to inspections Cardiovascular: peripheral pulses intact Gastrointestinal: Abdomen soft, non-tender, nondistended, no masses,no hepatosplenomegaly, no hernia Gynecologic: Deferred to OR Labs: CBC WBC (10*3/?L) Date Value 10/05/2024 6.83 RBC (10*6/?L) Date Value 10/05/2024 3.88 (L) PLT (10*3/?L) Date Value 10/05/2024 407 (H) HGB (g/dL) Date Value 10/05/2024 10.4 (L) HCT (%) Date Value 10/05/2024 31.8 (L) ALTv (U/L) Date Value 06/29/2024 142 (H) AST(SGOT) (U/L) Date Value 06/29/2024 59 (H) CREATININE (mg/dL) Date Value 06/29/2024 0.34 (L) URIC ACID (mg/dL) Date Value 06/29/2024 4.3 PROTEIN (no units) Date Value 06/29/2024 Negative PH (no units) Date Value 06/29/2024 6.5 GLU U QUAL (no units) Date Value 06/29/2024 Normal KETONES (no units) Date Value 06/29/2024 Negative BILIRUBIN (no units) Date Value 06/29/2024 Negative LEUK DONAVON (no units) Date Value 06/29/2024 75/uL (A) NITRITE (no units) Date Value 06/29/2024 Negative SP GRAVITY (no units) Date Value 06/29/2024 1.017 No results found for: "T4" TSH (mIU/L) Date Value 11/02/2019 2.32 Assessment/Plan: Mimi Jernigan is a 24 year old presenting for scheduled CKC Plan - proceed with CKC today - PSHx: Laparoscopic cholecystectomy - PMHx: Anemia,Obesity - preop Hgb 10.4 - Blood type O(+), current type and screen ordered, pending - UPT negative on admission - Abx: none indicated - DVT prophylaxis: SCDs - Risks/benefits/alternatives discussed, consents signed and in chart Guilherme Yeh MD TER ATTENDANT Associated attestation - Morgan Snow MD - 10/05/2024 12:34 PM COUNTER ATTENDANT I evaluated this patient. I agree with the resident s note as written and plan to proceed with CKC and other indicated procedures. [facility] 2024-08-01 09:02:31 TRIAGE/L&D HISTORY & PHYSICAL IDENTIFYING DATA Mimi Jernigan is 24 year old, /White, 37w0d, female with BRIAN 08/22/2024, by Last Menstrual Period. : 2001 Primary Care Physician: Krzysztof Avitia CHIEF COMPLAINT IOL HISTORY OF PRESENT ILLNESS Mimi Jernigan is a 24 year old at 37w0d who presents for IOL Patient denies vaginal bleeding, denies leakage of fluid, denies contractions. Endorses headache with changes and vision and numbness her toes, denies nausea/vomiting, denies RUQ pain, denies visual abnormalities. Endorses normal movement. PAST OBSTETRIC HISTORY OB History Para Term AB Living 3 1 1 0 1 1 SAB IAB Ectopic Multiple Live Births 1 0 0 0 1 # Outcome Date GA Lbr Robin/2nd Weight Sex Delivery Anes PTL Lv 3 Current 2 SAB 12/08/20 1 Term 08/22/20 37w0d 2850 g M NORMAL SPONT EPI N VICKI Comments: Time of : 10:18 PM Maternal Age: 19; :1; Parity:1 Mother's Blood Type:O pos Baby's Blood Type:O pos, DANAY negative Maternal Serological Test:normal Maternal Group B Strep Screening:negative; Adequate Treatment:not applicable Complications: Pre-eclampsia PAST MEDICAL HISTORY Problem list: Patient Active Problem List Diagnosis Date Noted 37 weeks gestation of 08/01/2024 Chlamydia infection affecting in third trimester 07/25/2024 Flu vaccine refused 07/13/2024 Gestational hypertension, third trimester 07/05/2024 Transaminitis 07/05/2024 High grade squamous intraepithelial lesion (HGSIL), grade 3 ANABELA, on biopsy of cervix 01/20/2024 History of pre-eclampsia in prior , currently 12/23/2023 History of HSV 12/23/2023 History of miscarriage 12/23/2023 Morbid obesity with body mass index of 40.0-49.9 12/18/2023 History of abnormal cervical Pap smear 01/26/2023 Maternal varicella, non-immune 01/11/2020 Operations: Past Surgical History: Procedure Laterality Date LAPAROSCOPIC CHOLECYSTECTOMY N/A 12/21/2023 Surgeon: Kiah Whelan MD; Location: [facility] Past Medical History: Diagnosis Date Anemia, 08/23/2020 Atypical squamous cells of undetermined significance (ASCUS) on Papanicolaou smear of cervix 01/26/2023 Genital herpes 2016 HSV I from lesion 2016, last outbreak 2016 Mild preeclampsia 08/23/2020 CURRENT HEALTH STATUS Medications: Current Facility-Administered Medications Medication Dose Route Frequency Last Rate Last Admin [id number] IV infusion 1,000 mL 1,000 mL IV Infusion TITRATE 125 mL/hr at 08/01/24 0938 1,000 mL at 08/01/24 0938 lactated ringers IV infusion 500 mL 500 mL IV Infusion PRN - SEE INSTRUCTIONS lidocaine 1% (PF) (XYLOCAINE) injection 0.3 mL 0.3 mL Infiltration PRN - SEE INSTRUCTIONS lidocaine 1% (XYLOCAINE) 10 mg/mL (1 %) injection 50 mL 50 mL Infiltration PRN - SEE INSTRUCTIONS oxytocin (PITOCIN) 30 units in NS 500 mL IV infusion 2-40 judy-units/min IV Infusion TITRATE sodium citrate-citric acid (BICITRA) 500-334 mg/5 mL solution 30 mL 30 mL Oral PRE-PROCEDURE ONCE Allergies and drug reactions: Patient has no known allergies. HOME MEDICATIONS Medications Prior to Admission Medication Sig Dispense Refill Last Dose valACYclovir 500 mg tablet Take 1 tablet by mouth in the morning and 1 tablet in the evening. 60 tablet 0 aspirin 81 mg EC tablet Take 1 tablet by mouth in the morning. 60 tablet 5 PNV 67-iron ps-folate no.1-dha (VITAFOL ULTRA) 29 mg iron- 1 mg-200 mg Cap Take 1 capsule by mouth in the morning. 60 capsule 6 06/26/2024 acetaminophen 325 mg tablet Take 2 tablets by mouth every 6 (six) hours as needed for Pain (scale 4-6). 240 tablet 11 not taking SOCIAL HISTORY Tobacco History: Social History Tobacco Use Smoking Status Never Smokeless Tobacco Never Tobacco Comments Denies smoking exposure Drug History: Social History Substance and Sexual Activity Drug Use No Alcohol History: Social History Substance and Sexual Activity Alcohol Use No Alcohol/week: 0.0 standard drinks of alcohol FAMILY HISTORY Family History Problem Relation Age of Onset No Significant Medical Problems Mother No Significant Medical Problems Father No Significant Medical Problems Sister No Significant Medical Problems Brother Hypertension Maternal Grandmother Other - see comments Maternal Grandmother Breast issue requiring radiation. Not CA Hypertension Maternal Grandfather Heart Maternal Grandfather Diabetes Maternal Grandfather Arthritis NoFHx Asthma NoFHx defects NoFHx Breast Cancer NoFHx Colon Cancer NoFHx Uterine Cancer NoFHx Ovarian Cancer NoFHx Cancer NoFHx Depression NoFHx Genetic NoFHx High cholesterol NoFHx Mental retardation NoFHx Neurological NoFHx Osteoporosis NoFHx Psychiatry NoFHx REVIEW OF SYSTEMS General: negative Skin: negative HEENT: negative Neck: negative HEME: negative Resp: negative Cardio: negative GI: negative : negative Endo: negative Neuro: negative Back: negative JOSÉ LUIS: negative Psych: negative VITAL SIGNS BP: (104-134)/(64-87) Temp: [36.7 ?C (98 ?F)] Temp source: Axillary (08/01 08) Pulse: [75-82] Resp: [18] SpO2: [97 %-99 %] Height: [162.6 cm (5' 4.02")] Weight: [115.1 kg (253 lb 12.8 oz)] BMI (calculated): [43.54] PHYSICAL EXAMINATIONS General: patient alert and in no acute distress HEENT: symmetric, negative for masses Lungs: unlabored breathing Breast: deferred Cardiology: peripheral pulses intact and regular Abdomen: soft, non-tender, non-distended, no liver, spleen or abnormal masses palpated and Gravid Extremities: no clubbing, cyanosis, or edema Neuro: patient moving all extremities, no facial droop : SVE: 12/19/Bl Spec Exam: No active lesions noted REVIEW OF LABORATORY, PATHOLOGY, AND RADIOLOGY DATA Lab results: Type & Screen Lab Results Component Value Date/Time IABORH O POSITIVE 08/01/2024 09:33 AM IAT Negative 12/23/2023 03:45 PM Serologies Lab Results Component Value Date/Time VZVIGG Negative 12/23/2023 03:45 PM RUBG Positive 12/23/2023 03:45 PM SYPIGG Non-reactive 06/15/2024 12:55 PM HBSAG Negative 12/23/2023 03:45 PM HBSAG 0.07 12/23/2023 03:45 PM HBSAG NON-REACTIVE 10/06/2018 03:50 PM Chlamydia Lab Results Component Value Date/Time VCAA Positive (A) 07/20/2024 03:40 PM Group B Strep Lab Results Component Value Date/Time CGB Negative 07/20/2024 03:40 PM GTT Lab Results Component Value Date/Time GLUF 85 06/12/2020 08:20 AM BFZE4HR 99 (L) 05/11/2024 10:53 AM GLU3H 82 06/12/2020 11:25 AM CBC Lab Results Component Value Date/Time HGB 11.1 (L) 07/20/2024 03:40 PM HCT 33.5 (L) 07/20/2024 03:40 PM PLT 346 07/20/2024 03:40 PM Active Hospital Problems Diagnosis Date Noted 37 weeks gestation of 08/01/2024 Chlamydia infection affecting in third trimester 07/25/2024 Gestational hypertension, third trimester 07/05/2024 Transaminitis 07/05/2024 High grade squamous intraepithelial lesion (HGSIL), grade 3 ANABELA, on biopsy of cervix 01/20/2024 Needs LEEP History of pre-eclampsia in prior , currently 12/23/2023 Total protein: 150 History of HSV 12/23/2023 Last outbreak 2016 History of abnormal cervical Pap smear 01/26/2023 01/19/2023 ASCUS 12/23/2023 HGSIL 01/18/2024 colpo CIN3, LEEP Maternal varicella, non-immune 01/11/2020 Address in Resolved Hospital Problems No resolved problems to display. Present on Admission: History of abnormal cervical Pap smear Maternal varicella, non-immune History of pre-eclampsia in prior , currently History of HSV High grade squamous intraepithelial lesion (HGSIL), grade 3 ANABELA, on biopsy of cervix Gestational hypertension, third trimester Transaminitis Chlamydia infection affecting in third trimester 37 weeks gestation of Placenta Accreta Screening Prior ? : No Prior Uterine Surgery?: No Placenta low lying/previa in current ? : No Ultrasound suspicion of PASD in current ?: No Screening outcome: A positive screening outcome indicates a history of prior delivery or prior uterine surgery, AND the presence of either a placenta low lying/previa or ultrasound suspicion of PASD in the current . Negative screening. ASSESSMENT AND PLAN Mimi Jernigan is a 24 year old at 37w0d by d/u(10) who presents for IOL. IOL - IOL @ 37 weeks d/t GHTN - Denies VB, LOF, CTX. Endorses good movement. - SVE: 2 / 25 % / Ballotable - Contractions (number / 10 minute): 0 - Plan: Admit for IOL, FB placement & Pitocin titration Gestational Hypertension History of PreE in Prior - 24 hour protein 150 - Dx 06/29 in L&D due to elevated BP 20 and 32 weeks, Not started on medication - BP measurements at home have been normal per pt - Baseline BP (111-136) / (68-83) - BP on admission: 134/87 - Denies PIH sx Lab Results Component Value Date HGB 11.1 (L) 07/20/2024 PLT 346 07/20/2024 CREAT 0.34 (L) 06/29/2024 URICACID 4.3 06/29/2024 ALT 142 (H) 06/29/2024 AST 59 (H) 06/29/2024 LDH 146 06/29/2024 Abnormal cervical Pap smear - Pap 01/17 HGSIL, Colpo 01/20 CIN3 - Needs LEEP PP History of HSV - Last outbreak 2015 - Denies current sxs - Spec exam: No active lesions noted Chlamydia Infection - Initial NOB negative by swab - Positive 07/20 by urine, treated - Needs ISAAC PP Cholecystectomy in - Lap gianna on 12/21/23 at 5 weeks gestation for acute on chronic cholecystitis - AST and ALT elevated during admission for acute cholecystitis with improvement after cholecystectomy - Pathology showed chronic cholecystitis with cholelithiasis - Denies any current sxs Antepartum course reviewed - 1 h 99, sero negative, Rimmune, VZVnot immune, HPV immune, O positive/IAT negative, GBS negative, Need LEEP PP - H/H, plt: 11.1 / 33.5, 346 on 07/20 - PP control plan: [facility] - Presentation on admission: cephalic - Anterior placenta - EFW: 3074 g, 55%tile - FHT reactive and reassuring - Normal anatomy scan D/w Dr. Carlos Aguilar MD Associated attestation - David Hill MD - 08/01/2024 3:29 PM CDT I was L&D faculty on 08/01/2024 and agree with H&P below. I discussed the plan of care with the residents. David Hill MD [facility] - Health 2023-12-18 17:11:41 Medicine History & Physical Date of Service: 12/18/2023 Pt presents from: Home CC: Right upper quadrant tenderness History of Present Illness: Mimi Jernigan is a 23 year old female with past md hx of , history of mild preeclampsia, morbid obesity, anemia and genital herpes that presents to the ED for abdominal pain. Per patient she has had intermittent abdominal pain since last year states right upper quadrant tenderness not associated food random in causation. She was seen approximately 2 weeks ago at this ER for similar pain and a CT of abdomen pelvis was performed at that time she was noted to have a distended gallbladder with stones and there was conversation with patient and recommendation for transfer to [facility] in [place] for possible laparoscopic cholecystectomy which patient refused and went home. Since that point patient has tested positive for home but developed the right upper quadrant abdominal tenderness once again decided come to ED for evaluation. She states right upper quadrant tenderness associated with sweats and chills but denies any fevers or sick contacts. In the emergency department she was noted to be hemodynamically stable initial labs show no leukocytosis. Chemistry does show mildly elevated LFTs. She has positive test. She did receive an ultrasound of the right upper quadrant showing cholelithiasis and gallbladder distention with positive sonographic Ramirez sign without gallbladder wall thickening she was also noted to have cholecystitis. Surgery was contacted in the emergency department which recommended placing patient on antibiotics and they would evaluate patient in morning. Hospitalist call for admission On my exam patient is alert abdominal pain has improved with Tylenol. She states taking only vitamin, denies smoking drugs. Stated she was a social drinker until finding that she was ROS: Pt denies F / N / V / D / Constipation / CP / SOB / cough / dysuria / hematuria / melena / hematochezia / rashes / suicidal or homicidal ideation / All others negative Review of Hx/Meds: PMH: Past Medical History: Diagnosis Date Anemia, 08/23/2020 Atypical squamous cells of undetermined significance (ASCUS) on Papanicolaou smear of cervix 01/26/2023 Genital herpes 2016 HSV I from lesion 2016, last outbreak 2016 Mild preeclampsia 08/23/2020 PSH: has no past surgical history on file. Family Hx: Noncontributory unless mentioned above Social History Tobacco Use Smoking status: Never Smokeless tobacco: Never Tobacco comments: Denies smoking exposure Substance Use Topics Alcohol use: No Alcohol/week: 0.0 standard drinks of alcohol Drug use: No Current Scheduled Medications Current IV Current Facility-Administered Medications: [START ON 12/19/2023] ampicillin-sulbactam (UNASYN) 3 g in NaCl 0.9% (NS) 100 mL MINI-BAG, 3 g, IV Piggyback, Q6H ABX, Bhakti Grissom DO lactated ringers IV infusion 1,000 mL, 1,000 mL, IV Infusion, CONTINUOUS, Bhakti Grissom DO, Last Rate: 125 mL/hr at 12/18/23 1637, 1,000 mL at 12/18/23 1637 Objective: Vitals: Vitals: 12/18/23 1150 12/18/23 1600 12/18/23 1635 BP: 138/89 135/72 131/75 Pulse: 102 82 90 Resp: 16 18 18 Temp: 37.2 ?C (99 ?F) TempSrc: Oral SpO2: 96% 98% 99% Weight: 111.1 kg (245 lb) Height: 1.626 m (5' 4") I/O's: Intake/Output Summary (Last 24 hours) at 12/18/2023 1711 Last data filed at 12/18/2023 1635 Gross per 24 hour Intake 200 ml Output -- Net 200 ml Physical Exam: General: NAD, Alert, lying in bed comfortable, cogent speech, morbid obesity. HEENT: anicteric, oral mucosa dry Neck: supple, no JVD, no bruits. Chest: CTA B/L, no W/R/C. Heart: RRR, S1/S2, no M/G/R Abdominal: BS normoactive, soft, ND, NT. Skin/Extremities: no rash, no cyanosis, warm and dry, no LE edema. Neurological: CN II-XII grossly intact, no focal deficits. Labs: BMP:BMP NA (mmol/L) Date Value 12/18/2023 137 12/08/2023 137 09/15/2019 140 K (mmol/L) Date Value 12/18/2023 3.7 12/08/2023 3.9 09/15/2019 4.1 CALCIUM (mg/dL) Date Value 12/18/2023 9.5 12/08/2023 9.5 09/15/2019 9.8 CL (mmol/L) Date Value 12/18/2023 106 12/08/2023 104 09/15/2019 107 BUN (mg/dL) Date Value 12/18/2023 7 12/08/2023 9 09/15/2019 11 CREATININE (mg/dL) Date Value 12/18/2023 0.36 (L) 12/08/2023 0.47 (L) 08/22/2020 0.33 (L) 08/19/2020 0.37 (L) 09/15/2019 0.59 GLUCOSE (mg/dL) Date Value 12/18/2023 124 (H) 12/08/2023 96 09/15/2019 98 CO2 TOTAL (mmol/L) Date Value 12/18/2023 24 12/08/2023 24 09/15/2019 23 CBC:CBC WBC (10*3/?L) Date Value 12/18/2023 10.69 RBC (10*6/?L) Date Value 12/18/2023 4.06 PLT (10*3/?L) Date Value 12/18/2023 375 (H) HGB (g/dL) Date Value 12/18/2023 11.7 HCT (%) Date Value 12/18/2023 34.8 (L) BMP:Hepatic Function Panel ALBUMIN (g/dL) Date Value 12/18/2023 4.2 T PROTEIN (g/dL) Date Value 12/18/2023 7.7 TOTAL BILI (mg/dL) Date Value 12/18/2023 0.8 ALTv (U/L) Date Value 12/18/2023 67 (H) AST(SGOT) (U/L) Date Value 12/18/2023 83 (H) ALK PHOS (U/L) Date Value 12/18/2023 74 Troponin: There are no current results on file for these tests and/or test for 1 year. I have reviewed all relevant labs Imaging: US GALL BLADDER Result Date: 12/18/2023 Indication: RUQ pain, r/o cholecystitis Comparison: CT abdomen and pelvis 12/08/2023 RL: [id number] ORDERING PHYSICIAN: QUIQUE STATON TECHNIQUE: Real-time sonographic images of the abdomen were obtained. Spectral and color Doppler was obtained. FINDINGS: The liver demonstrates increased echogenicity of the liver without focal lesion. No intrahepatic ductal dilatation is found. The common bile duct is not dilated, measuring 4.8 mm. There are no stones in the gallbladder. Gallbladder is distended. The gallbladder wall measures 1.8 mm. No pericholecystic fluid seen. Positive sonographic Ramirez's sign identified. No ascites identified. Aorta and IVC are within normal limits. 1. Cholelithiasis and gallbladder distention and positive sonographic Ramirez sign without gallbladder wall thickening Additional findings of cholecystitis. 2. Mild increased echogenicity of the liver related to liver steatosis. ABDOMEN PELVIS W CONTRAST Result Date: 12/08/2023 Exam: CT Abdomen and Pelvis With Contrast, 12/08/2023 6:30 PM. Ordering Physician: SARAH CUADRA. History: Abdominal abscess/infection suspected . Comparison: None. Technique: CT abdomen and pelvis was obtained with intravenous contrast. CT was performed according to ALARA (As Low As Reasonably Achievable). Technical Quality: Adequate. Findings: LOWER CHEST: Normal. ABDOMEN/PELVIS: Liver: Normal. Gallbladder/biliary: Distended with layering sludge and/or small stones. No biliary ductal dilation. Pancreas: Normal. Spleen: Normal. Adrenal glands: Normal. Kidneys and ureters: Normal. Bladder: Normal. Reproductive organs: Corpus luteum on the left Stomach/bowel: Lower esophagus and stomach are normal. Small bowel is normal. Appendix is normal. Decompressed distal bowel. Lymph nodes: Prominent number of nonenlarged mesenteric nodes Peritoneum: No intraperitoneal free air. No intraperitoneal free fluid. Vessels: Normal. MUSCULOSKELETAL: Bones: No acute osseous abnormality. Soft tissues: Unremarkable. Impression: 1. Distended gallbladder with stones. No additional evidence for acute cholecystitis. 2. Reactive mesenteric nodes in the setting of decompressed distal large bowel likely related to a gastroenteric illness. RL: [id number] End of Report Assessment and plan: Principal Problem: RUQ pain Active Problems: Morbid obesity with body mass index of 40.0-49.9 Right upper quadrant: Noted cholecystitis along with cholelithiasis seen on ultrasound with positive Ramirez sign -N.p.o. - Surgery consulted - Continues Unasyn - Continue pain management with Tylenol as needed - Start gentle IV fluids Morbid obesity: - Counseled on diet and exercise : - Continue vitamin once tolerating diet - Follow-up TRAY DELIVERY AIDE on discharge DVT prophylaxis: SCD and Pt expressed full understanding, Time discussed 3 minutes [place] ALLIGATOR SHEAR OPERATOR was verified Disposition: Admit for surgical evaluation [facility] Procedure Notes Date/Time Note Provider Source 2024-08-01 12:20:15 Associated Order(s): Central Neuraxial Block Central Neuraxial Block Date/Time: 08/01/2024 12:20 PM Performed by: Clara Whelan MD Authorized by: David Hill MD Patient Location: OB End Time: 08/01/2024 12:20 PM Reason for Block: Labor analgesia and Patient request Staff: Resident/ENGINEERING FACULTY MEMBER: Johnathan Headley MD Performed by: resident/ENGINEERING FACULTY MEMBER Preanesthetic Checklist: patient identified, IV checked, risks and benefits explained, monitors and equipment checked, timeout performed, pre-op evaluation, surgical consent, site marked, ob/surgical consent approval, ob/surgical consent verified and anesthesia consent Procedure: Type of Neuraxial: Epidural Epidural Description: 1st attempt Sterility Prep cap, drape, gloves, hand hygiene and mask Sedation Level no sedation Patient Position: sitting Prep: Betadine Monitoring: continuous pulse ox, heart rate / toco, heart rate and NIBP Location: lumbar (1-5) Lumbar: L3-L4 Approach: midline Technique: SHEYLA saline Guidance with: landmark technique} Epidural/Spinal Humble and/or Catheter: Epidural/Spinal Kit: BBraun Needle Type: Tuohy Needle Gauge: 17 G Needle Length: 3.5 in (8.89 cm) Needle Insertion Depth: 8 Catheter Type: multiport Catheter Size: 19 G Catheter at Skin Depth: 12 Number of Attempts: 2 Test Dose: lidocaine 1.5% with epinephrine 1-to-200,000 and negative Dose: 3 cc Catheter Securement Method: clear occlusive dressing, liquid medical adhesive and surgical tape Assessment: Sensory Level: below T10 Block Outcome: a full evaluation is pending and patient tolerated procedure well Procedure Assessment: patient tolerated procedure well with no complications Notes: Patient identified; pre-procedure verification. Patient prepped and draped in standard sterile fashion using betadine x 3 Subcutaneous infiltration with 1% Lidocaine SHEYLA at 8 cm; catheter secured at 12 cm with mastisol, tegaderm x2 and 3-inch clear tape. Aspiration test negative x 3 Test dose negative Patient tolerated procedure well with no immediate complications Epidural expectations; PCEA explained and fall precautions given. ANESTHESIOLOGY [facility]
--- NOTE | 2024-10-08 11:29 | ER ---
Nurse's Notes [facility] Name: Aleja Quinones Age: 24 yrs Sex: Female : 2000 Arrival Date: 10/08/2024 Time: 10:35 Bed 18 Private MD: Diagnosis: Acute serous otitis media, right ear Presentation: 10/08 10:44 Chief complaint: Patient states: Cough, congestion, R ear pain since 3 AM. Coronavirus ll1 screen: Client denies travel out of the [place] in the last 14 days. At this time, the client does not indicate any symptoms associated with coronavirus-19. Ebola Screen: Patient denies travel to an Ebola-affected area in the 21 days before illness onset. Initial Sepsis Screen: Does the patient meet any 2 criteria? No. Patient's initial sepsis screen is negative. Does the patient have a suspected source of infection? No. Patient's initial sepsis screen is negative. Risk Assessment: Do you want to hurt yourself or someone else? Patient reports no desire to harm self or others. Onset of symptoms was October 08, 2024. 10:44 Method Of Arrival: Ambulatory ll1 10:44 Acuity: ANA LAURA 4 ll1 Triage Assessment: 10:44 General: Appears uncomfortable, Behavior is calm, cooperative, appropriate for age. ll1 Pain: Complains of pain in right ear Quality of pain is described as aching. EENT: Reports nasal congestion pain in right ear. Historical: - Allergies: 10:44 No Known Allergies; ll1 - PMHx: 10:44 None; ll1 - PSHx: 10:44 Cholecystectomy; ll1 - Immunization history:: Adult Immunizations up to date. - Infectious Disease History:: Denies. - Social history:: Smoking status: Patient denies any tobacco usage or history of. Screenin:35 [facility] ED Fall Risk Assessment (Adult) History of falling in the last 3 months, db including since admission No falls in past 3 months (0 pts) Confusion or Disorientation No (0 pts) Intoxicated or Sedated No (0 pts) Impaired Gait No (0 pts) Mobility Assist Device Used No (0 pt) Altered Elimination No (0 pt) Score/Fall Risk Level 0 - 2 = Low Risk Oriented to surroundings, Maintained a safe environment. Abuse screen: Denies threats or abuse. Denies injuries from another. Nutritional screening: No deficits noted. Tuberculosis screening: No symptoms or risk factors identified. Assessment: 11:35 Reassessment: Patient appears in no apparent distress at this time. Patient and/or db family updated on plan of care and expected duration. Pain level reassessed. Patient is alert, oriented x 3, equal unlabored respirations, skin warm/dry/pink. General: Appears in no apparent distress. comfortable, Behavior is calm, cooperative, appropriate for age. Pain: Complains of pain in right ear Pain radiates to face. Neuro: Level of Consciousness is awake, alert, obeys commands, Oriented to person, place, time, situation. Respiratory: Airway is patent Respiratory effort is even, unlabored, Respiratory pattern is regular, symmetrical. EENT: Tympanic membrane reddened on right ear. Vital Signs: 10:44 BP 137 / 90; Pulse 78; Resp 17; Temp 97.1; Pulse Ox 100% ; Weight 108.86 kg; Height 5 ll1 ft. 4 in. ; Pain 8/10; 10:44 Body Mass Index 41.20 (108.86 kg, 162.56 cm) ll1 10:44 Pain Scale: Adult ll1 ED Course: 10:37 Patient arrived in ED. im 10:44 Arm band placed on. ll1 10:45 Triage completed. ll1 10:48 Hyacinth Valencia, JOHNY is Primary Nurse. db 11:07 Rocky See FNP-C is [facility]. dr5 11:07 Jsoe Recinos MD is Attending Physician. dr5 11:35 Patient has correct armband on for positive identification. Bed in low position. Call db light in reach. Side rails up X 1. Provided Education on: FOLLOWUP AND ANTIBIOTICS . Pulse ox on. NIBP on. Notified Nurse Practitioner and/or Physician Plug Paster of. 11:45 No provider procedures requiring assistance completed. Patient did not have IV access db during this emergency room visit. Administered Medications: No medications were administered Medication: 11:35 VIS not applicable for this client. db Outcome: 11:28 Discharge ordered by . dr5 11:45 Discharged to home ambulatory, with family, db 11:45 Condition: stable 11:45 Discharge instructions given to patient, Instructed on discharge instructions, follow up and referral plans. Prescriptions given X 3, 11:45 Patient left the ED. db Signatures: Xuan Navarrete RN RN ll1 Hyacinth Valencia, RN RN db Raeann Roberts Dustin, HAND KISS SETTER-C HAND KISS SETTER-Cdr5
--- NOTE | 2024-10-08 11:29 | EDPHYS ---
Physician Documentation [facility] Name: Aleja Quinones Age: 24 yrs Sex: Female : 2000 Arrival Date: 10/08/2024 Time: 10:35 Bed 18 Private MD: ED Physician Jose Recinos HPI: 10/08 11:25 This 24 yrs old Female presents to ER via Ambulatory with complaints of Right dr5 Ear Pain. 11:25 The patient presents with pain, that is acute. The complaints affect the right ear. dr5 Onset: The symptoms/episode began/occurred acutely, at 03:00. Patient is a 24-year-old female with no past medical history coming in for right ear pain and sore throat. Right ear pain started at 3:00 this morning. Patient reports sore throat for 2 days after being intubated for a procedure with her cervix.. Historical: - Allergies: 10:44 No Known Allergies; ll1 - PMHx: 10:44 None; ll1 - PSHx: 10:44 Cholecystectomy; ll1 - Immunization history:: Adult Immunizations up to date. - Infectious Disease History:: Denies. - Social history:: Smoking status: Patient denies any tobacco usage or history of. ROS: 11:25 Constitutional: as per hpi dr5 Exam: 11:25 Constitutional: This is a well developed, well nourished patient who is awake, alert, dr5 and in no acute distress. Head/Face: Normocephalic, atraumatic. Eyes: Pupils equal round and reactive to light, extra-ocular motions intact. Lids and lashes normal. Conjunctiva and sclera are non-icteric and not injected. Cornea within normal limits. Periorbital areas with no swelling, redness, or edema. 11:25 Chest/axilla: Normal chest wall appearance and motion. Nontender with no deformity. No lesions are appreciated. Cardiovascular: Regular rate and rhythm with a normal S1 and S2. Normal PMI, no JVD. No pulse deficits. Respiratory: Lungs have equal breath sounds bilaterally, clear to auscultation. No rales, rhonchi or wheezes noted. No increased work of breathing, no retractions or nasal flaring. Back: No spinal tenderness. No costovertebral tenderness. Full range of motion. Skin: Warm, dry with normal turgor. Normal color with no rashes, no lesions, and no evidence of cellulitis. Neuro: Awake and alert, GCS 15, oriented to person, place, time, and situation. Cranial nerves II-XII grossly intact. Motor strength 5/5 in all extremities. Sensory grossly intact. Cerebellar exam normal. Normal gait. 11:25 ENT: External ear(s): are unremarkable, Ear canal(s): are normal, TM's: bulging, erythema, loss of bony landmarks, on the right, Examination of the other ear shows no obvious abnormality, Mouth: is normal, Posterior pharynx: Airway: normal, no evidence of obstruction, erythema, that is moderate, exudate, is not appreciated, Vital Signs: 10:44 BP 137 / 90; Pulse 78; Resp 17; Temp 97.1; Pulse Ox 100% ; Weight 108.86 kg; Height 5 ll1 ft. 4 in. ; Pain 8/10; 10:44 Body Mass Index 41.20 (108.86 kg, 162.56 cm) ll1 10:44 Pain Scale: Adult ll1 MDM: 11:22 Medical Screening Exam initiated dr5 11:25 Differential diagnosis: otitis media, otitis externa, ruptured TM. Data reviewed: vital dr5 signs, nurses notes. Care significantly affected by the following Social Determinants of Health: Poor access to healthcare and/or lack of insurance, Poor access to transportation, Problems related to employment. Counseling: I had a detailed discussion with the patient and/or guardian regarding the historical points, exam findings, and any diagnostic results supporting the discharge/admit diagnosis, the presence of at least one elevated blood pressure reading (>120/80) during this emergency department visit, the need for outpatient follow up, for definitive care, an ENT specialist, a family practitioner, to return to the emergency department if symptoms worsen or persist or if there are any questions or concerns that arise at home. ED course: Will give patient course of amoxicillin, prednisone, cough medication for right otitis media. Recommended increasing hydration. Recommended hot teas with honey for sore throat. Follow-up with primary care doctor as needed. All questions answered. Return to ER if symptoms worsen.. Administered Medications: No medications were administered Disposition Summary: 10/08/24 11:28 Discharge Ordered Notes: Location: Home dr5 Condition: Stable dr5 Diagnosis - Acute serous otitis media, right ear dr5 Followup: dr5 - With: Emergency Department - When: As needed - Reason: Worsening of condition Followup: dr5 - With: Private Physician - When: 1 - 2 days - Reason: Recheck today's complaints, Continuance of care, Re-evaluation by your physician Discharge Instructions: - Discharge Summary Sheet dr5 - Otitis Media, Adult dr5 Forms: - Medication Reconciliation Form dr5 - Antibiotic Education dr5 - Patient Portal Instructions dr5 - Leadership Thank You Letter dr5 Prescriptions: - Bromfed DM 2-30-10 mg/5 mL Oral syrup - administer 10 milliliter ORAL route every 6 hours as needed for allergy dr5 symptoms; 240 milliliter; Refills: 0, Product Selection Permitted - Amoxicillin 875 mg Oral Tablet - take 1 tablet ORAL route every 12 hours for 10 days; 20 tablet; Refills: 0, dr5 Product Selection Permitted - Prednisone 20 mg Oral Tablet - take 2 tablets ORAL route once daily for 5 days; 10 tablet; Refills: 0, Product dr5 Selection Permitted Signatures: Xuan Navarrete RN RN ll1 Hyacinth Valencia RN RN db Rocky See, INTERN RETAIL-C INTERN RETAIL-Cdr5
[2024-10-08 11:50] VITALS: BP 137/90; TEMP 97.1; O2SAT 100
== END 2024-10-08 11:45 | disposition home or self-care (01) ==
LOC: ER 10:35
DX: H65.01 Acute serous otitis media, right ear (principal)
CPT/HCPCS: 99283